=== PATIENT | female | born 2000 | race Caucasian/White ===

== ENCOUNTER 2022-01-21 09:04 | Outpatient (CLI) | payer BC, SELFPAY ==
--- OUTSIDE RECORDS SUMMARY | 2022-01-21 09:07 | XMS_ITS | Clinical Summary ---
:2000 Author Organization [facility] Address [address] [place] [address]. [place] [address] Care Team Providers Name Role Phone [facility], [facility]- Allergies Active Allergy Reactions Severity Noted Date Comments Amoxicillin GI Disturbance 08/02/2018 Medications Medication Sig Dispensed Refills Start Date End Date Status lamoTRIgine (LAMICTAL) Take 1 tablet (150 30 tablet 0 08/12/19 19 Active 150 MG mg) by mouth At tabletIndications: Bedtime Depression with anxiety sertraline (ZOLOFT) 25 Take 1 tablet (25 30 tablet 0 9 Active MG tabletIndications: mg) by mouth daily Depression with anxiety Active Problems Problem Noted Date Suicidal ideation 08/03/2018 Social History Tobacco Use Types Packs/Day Years Used Date Current Some Day Smoker Smokeless Tobacco: Never Used Alcohol Use Standard Drinks/Week Comments Yes 0 (1 standard drink = 0.6 oz pure Pt sta bernadine she drank alot on alcohol) Thursday Alcohol Habits Answer Date Recorded How often do you have a drink Not asked containing alcohol? How many drinks containing alcohol do Not asked you have on a typical day when you are drinking? How often do you have six or more Not asked drinks on one occasion? Comment: Pt states she drank alot on 08/02/2018Thursday Sex Assigned at Date Recorded Not on file Last Filed Vital Signs Vital Sign Reading Time Taken Comments Blood Pressure 134/58 08/12/2018 7:00 AM CDT Pulse 101 08/12/2018 7:00 AM CDT Temperature 37 ??C (98.6 ??F) 08/12/2018 7:00 AM CDT Respiratory Rate 16 08/09/2018 8:48 AM CDT Oxygen Saturation 94% 08/12/2018 7:00 AM CDT Inhaled Oxygen Concentration - - Weight 64.1 kg (141 lb 5 oz) 08/12/2018 7:00 AM CDT Height 167.6 cm (5' 6) 08/02/2018 3:38 PM CDT Body Mass Index 22.81 08/02/2018 3:38 PM CDT Plan of Treatment Health Maintenance Due Date Last Done Comments ANNUAL REVIEW OF HM ORDERS 1998 CHLAMYDIA SCREENING 1998 PREVENTIVE CARE VISIT 1998 COVID-19 Vaccine (#1) 1998 Pneumococcal Vaccine: Pediatrics 2004 (0 to 5 Years) and At-Risk Patients (6 to 64 Years) (1 - PCV) DTAP/TDAP/TD IMMUNIZATION (1 - 2005 Tdap) HPV IMMUNIZATION (1 - 2-dose 2009 series) HIV SCREENING 2013 HEPATITIS C SCREENING 2016 PAP 2019 PHQ-2 (once per calendar year) 2021 INFLUENZA VACCINE (#1) 2022 ADVANCE CARE PLANNING 08/05/2023 08/04/2018 HEPATITIS B IMMUNIZATION Aged Out No long er eligible based on patient's age to complete this topic IPV IMMUNIZATION Aged Out No longer eligi ble based on patient's age to complete this topic MENINGITIS IMMUNIZATION Aged Out No longe r eligible based on patient's age to complete this topic Advance Directives For more information, please contact: [phone] Latest Code Status on File Code Status Date Activated Date Inactivated Comments Full Code 08/03/2018 10:33 AM 08/12/2018 3:19 PM Code status determined by: Discussion with patient/legal dec ision maker Care Teams Fiber Analyst Relationship Specialty Start Date End Date [facility], [facility]CP - General 08/02/18 [facility] [address] [place] [address]
--- OUTSIDE RECORDS SUMMARY | 2022-01-21 09:08 | XMS_ITS | Encounter Summary ---
:2000 Author Organization [facility] Address [facility] [place] [address] Care Team Providers Name Role Phone [facility], [facility]- Reason for Visit Reason Onset Date Comments MH/CD Inpatient 08/02/2018 Encounter Details Date Type Department Care Team Description 08/02/2018 Telephone Health [facility] Generic, Behavioral MH/ CD Inpatient Behavioral Health In [facility] [address] [place] [id number] Social History Tobacco Use Types Packs/Day Years [...] Assigned at Date Recorded Not on file documented as of this encounter Miscellaneous Notes Telephone Encounter - Deborah Winters - 08/02/2018 6:34 PM CDT S: Pt is a 18 yr old fem in ED for urges to self harm and inability to contract for safety reportby Oriaan B: Pt reports he father completed suicide by gunshot in May. Pt reports increasing dep. Pt reports she cut on Thursday for the first time and liked how it made her feel. Pt reports continued urges to cut. Pt reports she is unable to contract for safety due to urges to continue cutting once she starts. Pt reports she's not eating or sleeping. Pt reports she started seeing a psychiatrist in May an appointment scheduled with a therapist but hasn't seen one yet. No reported medical concerns or cd issues. In Flight Refueling Manager reports pt is able to ambulate independently. A: vol R: 4a / Sheyla Root Accepted by Dr. Mejia documented in this encounter Plan of Treatment Not on filedocumented as of this encounter Visit Diagnoses Not on filedocumented in this encounter Care Teams Technical Fellow Relationship Specialty Start Date End Date [facility] PCP - General 08/02/18 [facility] [address] [address] documented as of this encounter
--- OUTSIDE RECORDS SUMMARY | 2022-01-21 09:08 | XMS_ITS | Encounter Summary ---
:2000 Author Organization [facility] Address [address] [place] [id number] Care Team Providers Name Role Phone [facility]- Reason for Visit Auth/Cert Specialty Diagnoses / Procedures Referred By Contact Refer red To Contact Behavioral Health Diagnoses mental health Ur Young Adult Inpt [facility] l[facility] Station [address] [place] [phone] Phone: Referral ID Status Reason Start Date Expiration Date Visits Requ ested Visits Authorized [id number] 1 1 Encounter Details Date Type Department Care Team Description 08/03/2018 - Hospital Encounter [facility] Guillermo Carrion MD [address] [place] [id number] Bipolar affective disorder, remission st atus unspecified (H) (Primary Dx); 08/12/2018 Clinic Young Adult Jose L Morse MD [address] [place] [id number] Depression with anxiety Inpatient [facility] B[facility] Station [address] [place] [phone] Social History Tobacco Use Types Packs/Day Years [...] on file documented as of this encounter Last Filed Vital Signs Vital Sign Reading Time Taken Comments Blood Pressure 134/58 08/12/2018 7:00 AM CDT Pulse 101 08/12/2018 7:00 AM CDT Temperature 37 ??C (98.6 ??F) 08/12/2018 7:00 AM CDT Respiratory Rate 16 08/09/2018 8:48 AM CDT Oxygen Saturation 94% 08/12/2018 7:00 AM CDT Inhaled Oxygen Concentration - - Weight 64.1 kg (141 lb 5 oz) 08/12/2018 7:00 AM CDT Height - - Body Mass Index 22.81 08/02/2018 3:38 PM CDT documented in this encounter Discharge Summaries Jose L Morse MD - 08/12/2018 11:40 AM CDT Psychiatric Discharge Summary Kera Figueroa Age: [age] year old Date of : 2000 Date of Admission: 08/03/2018 Date of Discharge: 08/12/2018 Admitting Physician: Jose L Morse MD Discharge Physician: Jose L Morse MD Event Leading to Hospitalization: Kera Figueroa is a 18-year-old single female presenting with increased depression, suicidal ideation and strong urges for self-injurious behavior. The patient engaged in cutting herself, her thumb and wrist. The patient states that she enjoyed seeing the blood. The patient reports multiple stressors. Her father completed suicide in 05/2018. The patient reports that her father of agunshot wound after feeling extremely guilty after a DUI. Father drove himself out into a field where her previous boyfriend (a friend of the family) of a vehicle accident. The patient reports shehas an older brother who survived a suicide attempt by gunshot to the head. The patient reports that he is our miracle child. The patient's brother attempted suicide 4 years ago. He now is able to work, walk and function pretty much as he did prior to his suicide attempt. The patient is reporting increased symptoms of depression of lying in bed a lot, fatigue, racing thoughts, not being able to sleep. The patient also feels like she is a burden to her mother. The patient feels guilty because she lashes out at her mother. The patient states she has no reason, but she feels that she is at her worstwith her mother. The patient reports that she is depressed. She has a very poor mood. She has negative thinking towards self. She is feeling worthless, not good enough. The patient states that she feels that she is a burden to her mother. She is very irritable, especially with her mother. She has very poor motivation,poor focus. She is missing school. The patient has anhedonia. She has passive suicidal thinking. Shedenies intent at this time. She denies homicidal thinking. The patient reports she is very anxious. The patient states she wakes up anxious, she is anxious all day, goes to sleep anxious. The patient reports she has an ability to sleep because of her racing thoughts. She is often overwhelmed, but reports infrequent panic attacks. The patient reports that she has been engaging in risky behavior of using her phone while she is driving, stating, I just don't care if I crash my car. The patient denieshomicidal thinking. The patient denies any symptoms of diane. She does not endorse any symptoms of psychosis, including auditory or visual hallucinations or feelings of paranoia. The patient reports that she has very vivid dreams. Her dreams are always of bad things that are going to happen. She denies any other symptoms of PTSD. The patient denies any symptoms of eating disorder or OCD. No prior inpatient hospitalizations. The patient has been treated with Lexapro 20 mg for about a year. She had a recent increase in July, approximately 2 weeks ago, to 30 mg. The patient reports sinceincreasing to 30 mg her depression has dramatically increased along with her suicidal thinking. The patient has also been treated with Lamictal 100 mg for possible bipolar disorder. The patient states that she is scheduled to go to therapy with Dominga Vaughan. She has not seen the therapist yet. Thepatient reports overwhelming urges to cut. The patient reports that she used self-injurious behaviorof cutting quite a bit in middle school, stopped in her high school years and now has relapsed. She d enies previous suicide attempts. The patient reports that she moved back home with her mother and boyfriend because of her recent father's . 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 The patient reports that she works part-time at [employer] in [place]. See Admission note by Cristela Turner APRN CNS on 08/03/2018 for additional details. Diagnoses: 1. ??Major depressive disorder, recurrent, severe without psychosis. 2. ??Bipolar disorder, highly suspected, recent episode depressed and emerging possible diane. 3. ??Suicidal ideation resolved. Labs: Recent Results (from the past 672 hour(s)) EKG 12 lead Collection Time: 08/02/18 5:19 PM Result Value Ref Range Interpretation ECG Click View Image link to view waveform and result Drug abuse screen urine Collection Time: 08/02/18 7:33 PM Result Value Ref Range Amphetamine Qual Urine Negative NEG^Negative Barbiturates Qual Urine Negative NEG^Negative Benzodiazepine Qual Urine Negative NEG^Negative Cannabinoids Qual Urine Negative NEG^Negative Cocaine Qual Urine Negative NEG^Negative Opiates Qualitative Urine Negative NEG^Negative PCP Qual Urine Negative NEG^Negative Comprehensive metabolic panel Collection Time: 08/05/18 9:02 AM Result Value Ref Range Sodium 141 133 - 144 mmol/L Potassium 4.1 3.4 - 5.3 mmol/L Chloride 107 94 - 109 mmol/L Carbon Dioxide 24 20 - 32 mmol/L Anion Gap 10 3 - 14 mmol/L Glucose 80 70 - 99 mg/dL Urea Nitrogen 11 7 - 30 mg/dL Creatinine 0.84 0.52 - 1.04 mg/dL GFR Estimate >90 >60 mL/min/[1.73_m2] GFR Estimate If Black >90 >60 mL/min/[1.73_m2] Calcium 8.7 8.5 - 10.1 mg/dL Bilirubin Total 0.2 0.2 - 1.3 mg/dL Albumin 3.3 (L) 3.4 - 5.0 g/dL Protein Total 7.0 6.8 - 8.8 g/dL Alkaline Phosphatase 82 40 - 150 U/L ALT 9 0 - 50 U/L AST 13 0 - 45 U/L CBC with platelets differential Collection Time: 08/05/18 9:02 AM Result Value Ref Range WBC 5.2 4.0 - 11.0 10e9/L RBC Count 5.09 3.8 - 5.2 10e12/L Hemoglobin 14.4 11.7 - 15.7 g/dL Hematocrit 44.1 35.0 - 47.0 % MCV 87 78 - 100 fl MCH 28.3 26.5 - 33.0 pg MCHC 32.7 31.5 - 36.5 g/dL RDW 12.3 10.0 - 15.0 % Platelet Count 276 150 - 450 10e9/L Diff Method Automated Method % Neutrophils 48.8 % % Lymphocytes 37.1 % % Monocytes 7.9 % % Eosinophils 5.6 % % Basophils 0.4 % % Immature Granulocytes 0.2 % Nucleated RBCs 0 0 /100 Absolute Neutrophil 2.5 1.6 - 8.3 10e9/L Absolute Lymphocytes 1.9 0.8 - 5.3 10e9/L Absolute Monocytes 0.4 0.0 - 1.3 10e9/L Absolute Eosinophils 0.3 0.0 - 0.7 10e9/L Absolute Basophils 0.0 0.0 - 0.2 10e9/L Abs Immature Granulocytes 0.0 0 - 0.4 10e9/L Absolute Nucleated RBC 0.0 Lipid panel reflex to direct LDL Collection Time: 08/05/18 9:02 AM Result Value Ref Range Cholesterol 164 <200 mg/dL Triglycerides 134 <150 mg/dL HDL Cholesterol 57 >49 mg/dL LDL Cholesterol Calculated 80 <100 mg/dL Non HDL Cholesterol 107 <130 mg/dL TSH with free T4 reflex Collection Time: 08/05/18 9:02 AM Result Value Ref Range TSH 3.27 0.40 - 4.00 mU/L Consults: No consultations were requested during this admission Hospital Course: Kera Figueroa was admitted to 4A Unit with TORREY Loomis who formulated the care plan. The patient was transferred to attending Jose L Morse MD prior to discharge. She was admitted as a voluntary patient. The patient was placed under status 15 (15 minute checks) to ensure patient safety. Patient did not require seclusion or administration of emergency medications to manage behavior. She was open and agreed to referral to the Day Program. The following medication changes took place: -- Lamictal titrated to 150 mg qhs. -- Lexparo discontinued. -- Zoloft started and titrated but later lowered to 25 mg daily due to reported night sweating, restlessness and emerging diane. -- The patient is hesitant but will to consider discontinued Zoloft and further increasing Lamictal in the future. The patient tolerated medications well. Reported mood symptoms gradually subsided and eventually resolved. The patient was active on the unit. The patient was social, engaged and attended groups. Mild restlessness and possible diane emerged with Zoloft but later subsided and resolved with medications a djustment. No confusion or psychosis noted. The patient maintained denial of SI, HI and ALLISON. The patient slept well. Appetite was intact. The patient was compliant with medications and care. Kera Figueroa was released to home. At the time of this encounter, Kera Figueroa was determined to not be a danger to herself or others and symptoms did not meet criteria for involuntary hospitalization. The patient denied depression, anxiety, racing thoughts and irritability. The patient denied hallucinations and paranoia. The patient was future oriented and denied SI, ALLISON and HI. The patient noted tolerating medications well. Steps taken to minimize risk include: assessing patient???s behavior and thought process daily during hospital stay, discharging patient with adequate plan for follow up for mental and physical health,and discussing safety plan of returning to the hospital or calling 911, should the patient ever has thoughts of harming self or others. Therefore, based on all available evidence including the factors cited above, the patient does not appear to be at imminent risk for self-harm, and is appropriate foroutpatient level of care. The patient agreed to continue medications and outpatient care. Discharge Medications: Current Discharge Medication List START taking these medications Details hydrOXYzine (ATARAX) 25 MG tablet Take 1-2 tablets (25-50 mg) by mouth every 4 hours as needed for anxiety Qty: 10 tablet, Refills: 0 Associated Diagnoses: Depression with anxiety sertraline (ZOLOFT) 25 MG tablet Take 1 tablet (25 mg) by mouth daily Qty: 30 tablet, Refills: 0 Associated Diagnoses: Depression with anxiety CONTINUE these medications which have CHANGED Details lamoTRIgine (LAMICTAL) 150 MG tablet Take 1 tablet (150 mg) by mouth At Bedtime Qty: 30 tablet, Refills: 0 Associated Diagnoses: Depression with anxiety STOP taking these medications escitalopram (LEXAPRO) 20 MG tablet Comments: Reason for Stopping: Psychiatric and Physical Examinations: Appearance: awake, alert, appeared as age stated and well groomed Attitude: cooperative Eye Contact: good Mood: better and good Affect: appropriate and in normal range, mood congruent, full range and reactive bright and fully engaged. Speech: clear, coherent and normal prosody Psychomotor Behavior: no evidence of tardive dyskinesia, dystonia, or tics and intact station, gait and muscle tone Thought Process: linear and goal oriented Associations: no loose associations Thought Content: no evidence of suicidal ideation or homicidal ideation and no evidence of psychoticthought Insight: fair Judgment: intact Oriented to: time, person, and place Attention Span and Concentration: intact Recent and Remote Memory: intact Language and Fund of Knowledge: appropriate Muscle Strength and Tone: normal Gait and Station: Normal Vitals: 08/10/18 1500 08/11/18 0830 08/11/18 1700 08/12/18 0700 BP: 138/76 128/66 111/58 134/58 Pulse: 96 99 101 101 Resp: Temp: 96.9 ??F (36.1 ??C) 97.6 ??F (36.4 ??C) 98.6 ??F (37 ??C) 98.6 ??F (37 ??C) TempSrc: Tympanic Tympanic Tympanic Tympanic SpO2: 94% Weight: 64.1 kg (141 lb 5 oz) Discharge Plan: Health Care Follow-up Appointments: Day Treatment Intake Appointment Date: 08/13/2018 Time: 2:30pm Please arrive 20 minutes early to complete paperwork and provide your insurance card and ID. Provider: Fartun Cazares Address: [facility], [address] [place], [place] [id number] [facility] has faxed the AVS to this provider at ?? Therapy Appointment Date: 08/16/2018 Time: 11:00am Provider: Gopal Cunningham Address: [facility], [address] [place] [address] [facility] has faxed the AVS to this provider at ?? Resources: Mental health crisis response for your county is offered 24 hours a day, 7 days a week. Atrained counselor will assess your current situation, offer support and counseling and connect you with local resources. Please call [facility] Crisis Response [phone] [place], [place], [place], [place], [place], [place], [place], [place], [place] and [facility] Crisis Response Number: [phone] ?? Crisis Intervention: 560.427.2705 or 458-047-3820 (TTY: 795.646.7896). Call anytime for help. National [place] on Mental Illness (www.mn.carroll.org): 590.248.5053 or 386-539-9631. Suicide Awareness Voices of Education (SAVE) (www.save.org): 653-697-MACU (2657) National Suicide Prevention Line (www.mentalhealthmn.org): 430-904-RAAP (5142) Mental Health Consumer/Survivor Network of [place] (www.mhcsn.net): 551.429.3015 or 149-046-4550 Mental Health Association of [place] (www.mentalhealth.org): 320.619.9152 or 605-792-4570 Self- Management and Recovery Training., SMART-- Toll free: 294.257.4617 www.Desk[employer].Halldis Text 4 [place] [address] for immediate support and crisis intervention Crisis text line: Text [place] to 888587. Free, confidential, 24/11. Attestation: The patient has been seen and evaluated by fl, Jose L Morse MD documented in this encounter Discharge Instructions Discharge KayleycarmellagracielaFitz - 08/12/2018 12:21 PM CDT Behavioral Discharge Planning and Instructions Summary: You were admitted on 08/03/[address] [place] [address] due to Suicidal Ideation. You were treatedby CHRISTY Valadez APRN and Dr. Jose L Morse and discharged on to Home Principal Diagnosis: Major depressive disorder, recurrent, severe without psychosis Health Care Follow-up Appointments: Day Treatment Intake Appointment Date: 08/13/2018 Time: 2:30pm Please arrive 20 minutes early to complete paperwork and provide your insurance card and ID. Provider: Fartun Cazares Address: [facility], [address] [place] [address], [place] [address] [facility] has faxed the AVS to this provider at Therapy Appointment Date: 08/16/2018 Time: 11:00am Provider: Gopal Cunningham Address: [facility], [address] [place] [address], [place] [address] [facility] has faxed the AVS to this provider at Attend all scheduled appointments with your outpatient providers. Call at least 24 hours in advance if you need to reschedule an appointment to ensure continued access to your outpatient providers. Major Treatments, Procedures and Findings: You were provided with: a psychiatric assessment, assessed for medical stability, medication evaluation and/or management, group therapy, art therapy, milieu management, medical interventions and skills/OT groups. Symptoms to Report: If you experience any of the following symptoms please report them right away toyour provider or to family/friends; feeling more aggressive, increased confusion, losing more sleep,mood getting worse or thoughts of suicide. Early warning signs can include: Early warning signs that could signal a potential relapse could include but not limited to the following; increased depression or anxiety sleep disturbances increased thoughts or behaviors of suicide or self-harm increased unusual thinking, such as paranoia or hearing v oices. Safety and Wellness: Take all medicines as directed. Make no changes unless your doctor suggests them. Follow treatment recommendations. Refrain from alcohol and non-prescribed drugs. If there is a concern for safety, call [phone]. Resources: Mental health crisis response for your [facility] is offered 24 hours a day, 7 days a week. Atrained counselor will assess your current situation, offer support and counseling and connect you with local resources. Please call [facility] Crisis Response [phone] [place], [place], [place], [place], [facility] Crisis Response Number: [phone] Crisis Intervention: 326.898.4008 or 702-464-6488 (TTY: 688.847.1517). Call anytime for help. National [place] on Mental Illness (www.mn.carroll.org): 429.813.4393 or 858-683-8667. Suicide Awareness Voices of Education (SAVE) (www.save.org): 446-643-IFJG (4285) National Suicide Prevention Line (www.mentalhealthmn.org): 272-200-ZBQY (0642) Mental Health Consumer/Survivor Network of [place] (www.mhcsn.net): 200.536.5889 or 297-011-2677 Mental Health Association of [place] (www.mentalhealth.org): 814.991.7273 or 343-045-1647 Self- Management and Recovery Training., SMART-- Toll free: 124.850.2104 [employer] Text 4 [place] [address] for immediate support and crisis intervention Crisis text line: Text [place] to 547617. Free, confidential, 24/11. The treatment team has appreciated the opportunity to work with you. Kera, please take care and make your recovery a daily recovery. If you have any questions or concerns our unit number is [phone]. You will be receiving a follow-up phone call within the next three days from a financial services representative from behavioral health. You have identified the best phone number to reach you as [phone] (home) documented in this encounter Medications at Time of Discharge Medication Sig Dispensed Refills Start Date End Date lamoTRIgine (LAMICTAL) Take 1 tablet (150 30 tablet 0 08/11 150 MG tabletIndications: mg) by mouth At Depression with anxiety Bedtime sertraline (ZOLOFT) 25 MG Take 1 tablet (25 30 tablet 0 03/2019 tabletIndications: mg) by mouth daily Depression with anxiety hydrOXYzine (ATARAX) 25 Take 1-2 tablets 10 tablet 0 201809/10/2018 MG tabletIndications: (25-50 mg) by mouth Depression with anxiety every 4 hours as needed for anxiety documented as of this encounter Progress Notes Clifton Santa RN - 08/12/2018 1:02 PM CDT DISCHARGE: This RN and pt have reviewed all meds and aftercare plan. All belongings returned. Pt denies SI , anxiety or depression at this time. Pt bright and smiling upon DC. Fitz Philippe - 08/12/2018 12:27 PM CDT Dicussed with patient his/her Personal Plan of Care. Reasons you are in the hospital; The patient identifies the following reasons for current hospitalization: I did and wanted to harm myself Unable to be honest with my mother about my feelings Goals for Discharge The patient identifies the following goals for discharge: New coping mechanisms Better than self harm. Be honest with people about my feelings. Abrahan Hoffman - 08/11/2018 6:37 PM CDT Patient participated in group activities. She reports that she feels happy, denies SI, SIB, hallucinations, depression, anxiety, and rates her mood at eight out of ten. Patient reported that she feels excited about her possible discharge on Thursday. Hence, she will like to have a meeting with her Clinical Pantograph Transferrer tomorrow to making sure her Day Program, and Aggrieved Counselor program will be ready prior to the day she will be discharged. Patient appears calm, pleasant, relates well with other patients, displays bright affect, and follows directions. 08/11/18 587 Behavioral Health Hallucinations denies / not responding to hallucinations Thinking other (see comment) (Good) Orientation person: oriented;place: oriented Memory baseline memory Insight insight appropriate to events Judgement intact Eye Contact at examiner Affect full range affect Mood mood is calm Physical Appearance/Attire appears stated age;attire appropriate to age and situation Hygiene well groomed Suicidality other (see comments) (denies) 1. Wish to be No 2. Non-Specific Active Suicidal Thoughts No Self Injury other (see comment) (Pt denies) Elopement (No concern) Activity other (see comment) (Particiaptes) Speech clear;coherent Medication Sensitivity no stated side effects;no observed side effects Psychomotor / Gait balanced;steady Overt Aggression Scale Verbal Aggression 0 Aggression against Property 0 Auto-Aggression 0 Physical Aggression 0 Overt Aggression Total Score 0 Coping/Psychosocial Verbalized Emotional State acceptance;happiness Safety Assault status 15 Activities of Daily Living Hygiene/Grooming independent Oral Hygiene independent Dress independent Room Organization independent Activity Activity Assistance Provided independent Jose L Morse MD - 08/11/2018 11:24 AM CDT [facility] Progress Note Interim History: The patient's care was discussed with the treatment team during the daily team meeting and/or staff's chart notes were reviewed. Staff report patient rated dep and anx low. Social, bright, fully engaged and cooperative. Attending groups. Denied SI and ALLISON. Residual diane resolved. Slept well. More on task and improved boundaries. No overt psychosis, or confusion. Compliant with medications and care. The patient was pleasant and fully engaged. Denied dep and racing thoughts. Anxiety improving. No SIor ALLISON. Night sweating persist but otherwise tolerating medications well. No hallucinations or paranoia. Hesitant but will to consider discontinued Zoloft and further increasing Lamictal in the future.Agreed to discharge tomorrow. Discussed medications and care plan. Medications: ??? lamoTRIgine 150 mg Oral At Bedtime ??? sertraline 25 mg Oral Daily Allergies: Allergies Allergen Reactions ??? Amoxicillin GI Disturbance Labs: No results found for this or any previous visit (from the past 24 hour(s)). Psychiatric Examination: Vitals: 08/09/18 1700 08/10/18 0700 08/10/18 1500 08/11/18 0830 BP: 135/72 135/61 138/76 128/66 Pulse: 76 114 96 99 Resp: Temp: 98.4 ??F (36.9 ??C) 97.9 ??F (36.6 ??C) 96.9 ??F (36.1 ??C) 97.6 ??F (36.4 ??C) TempSrc: Tympanic Tympanic Tympanic Tympanic SpO2: 95% Weight: 64.4 kg (141 lb 15.6 oz) Sitting Orthostatic BP: 135/61 Sitting Orthostatic Pulse: 114 bpm Standing Orthostatic BP: 120/67 Standing Orthostatic Pulse: 119 bpm Weight is 141 lbs 15.62 oz Body mass index is 22.92 kg/m??. Appearance: awake, alert, adequately groomed, appeared as age stated and no apparent distress Attitude: cooperative Eye Contact: good Mood: better Affect: intensity is exaggerated, full range, bright and reactive Speech: clear, coherent and normal prosody Psychomotor Behavior: no evidence of tardive dyskinesia, dystonia, or tics and intact station, gait and muscle tone Throught Process: linear and goal oriented Associations: no loose associations Thought Content: no evidence of suicidal ideation or homicidal ideation and no evidence of psychoticthought Insight: fair Judgement: intact Oriented to: time, person, and place Attention Span and Concentration: intact Recent and Remote Memory: intact Precautions: Behavioral Orders Procedures ??? Code 1 - Restrict to Unit ??? Routine Programming As clinically indicated ??? Self Injury Precaution Hx of cutting ??? Status 15 Every 15 minutes. ??? Suicide precautions Patients on Suicide Precautions should have a Combination Diet ordered that includes a Diet selection(s) AND a Behavioral Tray selection for Safe Tray - with utensils Diagnoses: 1. ??Major depressive disorder, recurrent, severe without psychosis. 2. ??Rule out bipolar disorder, recent episode depressed. 3. ??Suicidal ideation Plan: Medications: -- Lamictal start and titrated to 150 mg qhs. -- Lexparo discontinued. -- Zoloft started and titrated but later lowered to 25 mg daily due to restlessness and emerging diane. -- the patient is hesitant but will to consider discontinued Zoloft and further increasing Lamictal in the future. Agreed to discharge tomorrow. Legal Status and Disposition: -- volunt. -- discharge will be granted once established mood stabilization, remission of SI and safety in the community. -- refer to day program, individual therapy and Grief groups. -- anticipated discharge tomorrow. Discharge medications issued. Stephen Smith - 08/10/2018 10:22 PM CDT 08/10/18 2200 Therapeutic Recreation Type of Intervention structured groups Activity game Response Participates, initiates socially appropriate Hours 1 Pt participated in Therapeutic Recreation group with focus on leisure participation,stress reduction, and socialization. Pt engaged and cooperative in a group therapeutic recreational game. Pt participated throughout entire duration of the group. Pt was often laughing out loud appropriately with peers throughout the game. Pt stayed behind to help put away the game in an organized fashion. Showed progress in session goals. Pt mood was calm. Mellisa Ventura - 08/10/2018 8:37 PM CDT 08/10/18 1600 Behavioral Health Hallucinations denies / not responding to hallucinations Thinking distractable Orientation person: oriented;place: oriented;date: oriented;time: oriented Memory baseline memory Insight poor Judgement impaired Eye Contact at examiner Affect full range affect Mood labile Physical Appearance/Attire attire appropriate to age and situation Hygiene well groomed Suicidality other (see comments) (denied SI) 1. Wish to be No 2. Non-Specific Active Suicidal Thoughts No Self Injury other (see comment) (pt denied SIB) Elopement (no concerns) Activity other (see comment) (pt is social in the milieu) Speech clear;coherent Medication Sensitivity no observed side effects;no stated side effects Psychomotor / Gait steady;balanced Activities of Daily Living Hygiene/Grooming independent Oral Hygiene independent Dress independent Room Organization independent Pt reported feeling good and excited for discharge. Pt had a visit with her family this evening. Pt shows full range of affect and was social with peers and staff. Pt is cooperative with staff. Yen Zepeda - 08/10/2018 12:33 PM CDT Behavioral Health [facility] Note Behavioral Health [facility] Spirituality Group Note UNIT [address] [place] Name: Kera Figueroa Date of : 2000 Age: [age] year old Patient attended [facility]-led group, which included discussion of spirituality, coping with illness and building resilience. Patient attended group for 1.0 hrs. The patient actively participated in group discussion and patient demonstrated an appreciation of topic's application for their personal circumstances. [facility] Orderly Pager [phone] Jose L Morse MD - 08/10/2018 10:44 AM CDT [facility] [place] [facility] Progress Note Interim History: The patient's care was discussed with the treatment team during the daily team meeting and/or staff's chart notes were reviewed. Staff report patient rated dep and anx low. Denied SI and ALLISON. More engaged and social with peers. Attending groups. More on task and improved boundaries. No overt psychosis, or confusion. Compliant with medications and care. The patient was bright and fully engaged. Noted that dep and anx improved. Sleep improved but night sweating persist. Restless improved with lowering Zoloft dose but not fully open to further tapering.No hallucinations or racing thoughts reported. Future oriented and denied SI and ALLISON. Concerned about discharge. Open and receptive to recommended post discharge referrals. Discussed medications and care plan. Medications: ??? lamoTRIgine 150 mg Oral At Bedtime ??? sertraline 25 mg Oral Daily Allergies: Allergies Allergen Reactions ??? Amoxicillin GI Disturbance Labs: No results found for this or any previous visit (from the past 24 hour(s)). Psychiatric Examination: Vitals: 08/08/18 1700 08/09/18 0848 08/09/18 1700 08/10/18 0700 BP: 129/55 141/68 135/72 135/61 Pulse: 93 96 76 114 Resp: 16 Temp: 98.7 ??F (37.1 ??C) 97.9 ??F (36.6 ??C) 98.4 ??F (36.9 ??C) 97.9 ??F (36.6 ??C) TempSrc: Tympanic Tympanic Tympanic Tympanic SpO2: 96% 95% Weight: 64.4 kg (141 lb 15.6 oz) Sitting Orthostatic BP: 135/61 Sitting Orthostatic Pulse: 114 bpm Standing Orthostatic BP: 120/67 Standing Orthostatic Pulse: 119 bpm Weight is 141 lbs 15.62 oz Body mass index is 22.92 kg/m??. Appearance: awake, alert, adequately groomed, appeared as age stated and no apparent distress Attitude: cooperative Eye Contact: good Mood: better Affect: intensity is exaggerated, full range, bright and reactive Speech: clear, coherent and normal prosody Psychomotor Behavior: no evidence of tardive dyskinesia, dystonia, or tics and intact station, gait and muscle tone Throught Process: linear and goal oriented Associations: no loose associations Thought Content: no evidence of suicidal ideation or homicidal ideation and no evidence of psychoticthought Insight: fair Judgement: intact Oriented to: time, person, and place Attention Span and Concentration: intact Recent and Remote Memory: intact Precautions: Behavioral Orders Procedures ??? Code 1 - Restrict to Unit ??? Routine Programming As clinically indicated ??? Self Injury Precaution Hx of cutting ??? Status 15 Every 15 minutes. ??? Suicide precautions Patients on Suicide Precautions should have a Combination Diet ordered that includes a Diet selection(s) AND a Behavioral Tray selection for Safe Tray - with utensils Diagnoses: 1. ??Major depressive disorder, recurrent, severe without psychosis. 2. ??Rule out bipolar disorder, recent episode depressed. 3. ??Suicidal ideation Plan: Medications: -- Lamictal start and titrated to 150 mg qhs. -- Lexparo discontinued. -- Zoloft started and titrated but later lowered to 25 mg daily due to restlessness. Legal Status and Disposition: -- volunt. -- discharge will be granted once established mood stabilization, remission of SI and safety in the community. -- refer to day program, individual therapy and Grief groups. -- anticipated discharge in 1-2 days. Fitz Vargas - 08/10/2018 9:25 AM CDT INITIAL PSYCHOSOCIAL ASSESSMENT I have reviewed the chart and interviewed the patient. Presenting Problem Per ED provider note, Kera Figueroa is a 18 year old female with a history of depression and bipolar disorder who presents with depression. The patient reports that she has struggled with depression for her entire life and was additionally diagnosed with bipolar disorder 3 years ago for which she has been taking citalopram and lamotrigine. Three months ago the patient states her father committed suicide and her depression has been increasing in severity since then. Additionally 2 weeks ago thepatient states that her citalopram dosage was increased by 10 mg by her psychiatrist and doesn't know if this may be affecting her mood as well. A couple days ago the patient states she cut her left thumb and became scared when she felt better after cutting herself. She notes that she used to cut herself with a pocket knife when she was in middle school because it made her feel better and currently presents to the ED due to fear that she will start cutting herself again. The patient notes that although she struggles with thoughts of cutting herself, she does not want to . She notes that she is currently attending school, but not engaging in it and has been having some difficulty sleeping at night. 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 She otherwise denies any fevers, sore throat, cough, urinary symptoms or changes in bowel movements. The patient states that she does drink socially with her last having had 5-6 drinks a few days ago. She denies any drug use. The patient lives with her mom and boyfriend, however she notes that her mom is currently out of town. Nicky Cali MD 08/02/2018 Orders Placed This Encounter Voluntary Is patient under a civil commitment/legal guardian? No History of Mental Illness and Chemical Health History Pt has a hx of PTSD and depression. Pt is currently hospitalized due to suicidal ideation. Pt has a hx of SIB via cutting. Pt's current medications are Lamotrigine, Escitalopram and Lexapro. Family Description(Constellation, family psychiatric hx) Pt was born and raised in [place]. Pt's parent's were . Pt's mother is now a . Pt has 1 olderbrother. Pt is currently in a relationship. Pt's father had a hx of depression and successfully completed suicide. Pt's brother attempted suicide and has a hx of depression. Pt's grandfather has a hx of depression. Significant Life Events (Trauma/Ilness/) Pt's father completed suicide in May. Pt's ex-boyfriend in a car accident and pt's brother attempted suicide. 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 Social functioning (organization, interests) Nothing at this time Current Health Care Providers Medication Management: Dominga Wttcoff [phone] fax [phone] Therapist: Primary Care: Teacher'S Aide: [facility]/Home Health nurse: Home Health Nurse: Social Service Assessment/Plan Patient would benefit from grief counseling or day treatment. CTC will consult with treatment team for additional treatment recommendations. CTC will schedule appointments with outpatient providers for follow-up post discharge. Patient will continue to receive therapeutic support while hospitalized and is encouraged to attend therapies on the unit Mellisa Ventura - 08/09/2018 10:48 PM CDT 08/09/18 1900 Behavioral Health Hallucinations denies / not responding to hallucinations Thinking poor concentration Orientation person: oriented;date: oriented;place: oriented;time: oriented Memory baseline memory Insight poor Judgement impaired Eye Contact at examiner Affect full range affect Mood labile Physical Appearance/Attire attire appropriate to age and situation Hygiene neglected grooming - unclean body, hair, teeth Suicidality other (see comments) (pt denied SI) 1. Wish to be No 2. Non-Specific Active Suicidal Thoughts No Self Injury other (see comment) (pt denied SIB) Elopement (no concerns) Activity withdrawn Speech coherent;clear Medication Sensitivity no stated side effects;no observed side effects Psychomotor / Gait steady;balanced Activities of Daily Living Hygiene/Grooming independent Oral Hygiene independent Dress independent Room Organization independent Pt was social in the milieu. Pt was cooperative with staff. Pt had a check-in earlier in the shift and reported feeling overwhelmed and upset due to another pt. Kera reported that she is here to work on herself and this was a hard day due to it being the anniversary of her boyfriend's . Pt wasable to articulate her needs. Pt later reported feeling better. Stephen Smith - 08/09/2018 10:30 PM CDT 08/09/18 2200 Therapeutic Recreation Type of Intervention structured groups Activity game Response Participates, initiates socially appropriate Hours 1 Pt participated in Therapeutic Recreation group with focus on leisure participation and socialization. Engaged and cooperative in a group recreational intervention game. Pt participated throughout entire duration of the group. Pt shared with group [employer] summer interests. Showed progress in session goals. Pt mood was calm. Aisha Marie - 08/09/2018 3:46 PM CDT Participated in Music Therapy group with focus on mood elevation, validation and decreasing anxiety and improved group cohesiveness. Engaged and cooperative in music listening interventions. Showed progress in session goals. Responded well to challenging peer, not directly interacting but reporting tostaff. Cristela Turner APRN CNS - 08/09/2018 1:09 PM CDT [facility] [place] [facility] Progress Note Interim History: The patient's care was discussed with the treatment team during the daily team meeting and/or staff's chart notes were reviewed. Staff report patient is in milieu. Psychiatric symptoms and interventions: Increased Lamictal to 150 mg to address mood instability Sertraline 25 mg to address mood. Decreased dose from 50 mg due to night sweats and hand tremors. Will continue ot monitor. Patient has been tearful in the context of multiple losses in her life including father, past boyfriend and her 5 year old cousin . Patient reports feeling very sad but feel in control in that she doesnot have urges for self injurious behavior. ? Medical: no acute issues, admission labs unremarkable ?? Behavioral/psychology/social: Encouraged patient to attend therapeutic hospital programming. Patient has not required restraint or seclusion within the last 24 hours. ?? Medications: ??? lamoTRIgine 150 mg Oral At Bedtime ??? [START ON 08/10/2018] sertraline 25 mg Oral Daily Allergies: Allergies Allergen Reactions ??? Amoxicillin GI Disturbance Labs: No results found for this or any previous visit (from the past 24 hour(s)). Psychiatric Examination: BP 141/68 Pulse 96 Temp 97.9 ??F (36.6 ??C) (Tympanic) Resp 16 Wt 64.6 kg (142 lb 8 oz) LMP 08/01/2018 SpO2 96% BMI 23.00 kg/m?? Weight is 142 lbs 8 oz Body mass index is 23 kg/m??. Orthostatic Vitals Most Recent Sitting Orthostatic BP 141/68 04/08 0848 Sitting Orthostatic Pulse (bpm) 96 04/08 0848 Standing Orthostatic BP 111/57 04/08 0848 Standing Orthostatic Pulse (bpm) 116 04/08 0848 Appearance: awake, alert and adequately groomed Attitude: cooperative Eye Contact: good Mood: sad Affect: appropriate and in normal range Speech: clear, coherent Psychomotor Behavior: no evidence of tardive dyskinesia, dystonia, or tics Throught Process: logical, linear and goal oriented Associations: no loose associations Thought Content: passive suicidal ideation present Insight: fair Judgement: fair Oriented to: time, person, and place Attention Span and Concentration: intact Recent and Remote Memory: intact Clinical Global Impressions First: Considering your total clinical experience with this particular patient population, how severe are the patient's symptoms at this time?: 6 (08/03/181330) Compared to the patient's condition at the START of treatment, this patient's condition is:: 6 (08/03/181330) Most recent: Considering your total clinical experience with this particular patient population, how severe are the patient's symptoms at this time?: 6 (08/03/181330) Compared to the patient's condition at the START of treatment, this patient's condition is:: 6 (08/03/181330) Precautions: Behavioral Orders Procedures ??? Code 1 - Restrict to Unit ??? Routine Programming As clinically indicated ??? Self Injury Precaution Hx of cutting ??? Status 15 Every 15 minutes. ??? Suicide precautions Patients on Suicide Precautions should have a Combination Diet ordered that includes a Diet selection(s) AND a Behavioral Tray selection for Safe Tray - with utensils DIagnoses: 1. ??Major depressive disorder, recurrent, severe without psychosis. 2. ??Rule out bipolar disorder, recent episode depressed. 3. ??Suicidal ideation Plan: ?? Legal status: Voluntary ?? Medication management: sertraline 25 mg, Lamictal 100 mg ?? Disposition status: Stabilize with medications, day treatment, return to home.? DAT Erika Mccarty - 08/09/2018 12:08 PM CDT Pt has been present in the milieu and has participated in groups this shift. Pt presents with a fullrange affect and labile mood. Pt states she feels low today due to receiving bad news last eveningregarding the of a family member. Pt claims she was up most of the night crying and only sleptfor a few hours. Pt denies experiencing severe anxiety at this time, however she does endorse some somatic symptoms (chest tightness). Pt also claims she is experiencing night sweats and wants this to be under control before discharge. Pt denies experiencing any hallucinations or delusions at this time. Pt endorses passive thoughts of SIB. Pt denies experiencing any SI. Pt mentioned to this contract technical writer that she is having poor experiences with her roommate and claims there is drama between the two girls. Pt requested a room change due to these ongoing issues with her roommate. This contract technical writer also thought it would be pertinent to mention that today is supposedly the anniversary of this pt's boyfriend's , however when this contract technical writer checked in with this pt on August 05, pt stated that the anniversary of her boyfriend's was on that date. 08/09/18 1205 Behavioral Health Hallucinations denies / not responding to hallucinations Thinking poor concentration Orientation person: oriented;place: oriented;date: oriented;time: oriented Memory baseline memory Insight poor Judgement impaired Eye Contact at examiner Affect full range affect Mood labile Physical Appearance/Attire attire appropriate to age and situation Hygiene neglected grooming - unclean body, hair, teeth Suicidality other (see comments) (thoughts only last evening; none today) 1. Wish to be No 2. Non-Specific Active Suicidal Thoughts No Self Injury thoughts only;other (see comment) (thoghts worsen when in room) Activity withdrawn;other (see comment) (Pt present in milieu; participates in groups) Speech clear;coherent Medication Sensitivity no stated side effects;no observed side effects Psychomotor / Gait balanced;steady Activities of Daily Living Hygiene/Grooming independent Oral Hygiene independent Dress independent Laundry unable to complete Room Organization independent Thang Devi - 08/08/2018 11:15 PM CDT Pt was active and social in milieu the entire shift. Pt appeared to enjoy her evening, socializing, and watching movies with peers. Pt had many visitors this evening, which she stated was positive. Pt attempted to go to sleep, but came out crying stating that she cant be in her room alone with her thoughts. Fire Extinguisher Installer suggested that she hang out in the milieu for a while and trying to calm herself. Pt began to work on a puzzle, which seems to help. Pt stated that her cousin this morning, which has really effected her. Pt stated her day was crappy. 08/08/18 2300 Behavioral Health Hallucinations denies / not responding to hallucinations Thinking distractable Orientation person: oriented;place: oriented;date: oriented;time: oriented Memory baseline memory Insight poor Judgement intact Eye Contact at examiner Affect full range affect Mood labile Physical Appearance/Attire attire appropriate to age and situation Hygiene well groomed 1. Wish to be No 2. Non-Specific Active Suicidal Thoughts No Activity (WDL) WDL Speech (WDL) WDL Psychomotor Gait (WDL) WDL Activities of Daily Living Hygiene/Grooming independent Oral Hygiene independent Dress independent Room Organization independent Den Landry - 08/07/2018 9:30 PM CDT Alize' mood was labile this evening. She alternated between periods of elation and short, seemingly spontaneous episodes of crying. Distraction is her primary coping skill. She attended and participatedin groups. She was polite and conversational upon approach. Patient was hyper-verbal at times, but seems to enjoy being positive and supportive with peers. Alize is upset that she does not receive utensils on her dinner tray and does not feel the restriction is necessary. Appetite: Good Pain: N/A Sleep: Fair SEs: N/A 08/07/18 2100 Behavioral Health Hallucinations denies / not responding to hallucinations Thinking poor concentration Orientation person: oriented;place: oriented;date: oriented Memory baseline memory Insight other (see comment) (limited) Judgement impaired Eye Contact at examiner Affect full range affect Mood labile Physical Appearance/Attire attire appropriate to age and situation Hygiene well groomed Suicidality other (see comments) (denies) 1. Wish to be No 2. Non-Specific Active Suicidal Thoughts No Enviromental Risk Factors None Self Injury thoughts only Elopement (no concerns) Activity other (see comment) (visible, participating) Speech coherent;clear Medication Sensitivity no stated side effects;no observed side effects Psychomotor / Gait balanced;steady Activities of Daily Living Hygiene/Grooming independent Oral Hygiene independent Dress street clothes Laundry with supervision Room Organization independent Stacey Kaur - 08/07/2018 8:30 PM CDT 08/07/182029 Psycho Education Type of Intervention structured groups Response participates, initiates socially appropriate Hours 1 Treatment Detail psychotherapy group Kera actively participated in psychotherapy group. Goal of the group was feelings identification and social cohesion. Kera openly, tearfully shared her feelings of possibly having to confront losing some people in her life, and she reported feeling a disconnect with her parents visit They talked about everyone else in the family, not me. Den Landry - 08/06/2018 9:47 PM CDT Kera had a positive evening. She was visible in the milieu, participated in groups, was social, and appropriate with others. Presents some symptoms of hypomania. Hyperverbal, tense affect. Denies SI/SIB. Appetite: Good Pain: N/A SEs: N/A Sleep: Improved 08/06/18 2100 Behavioral Health Hallucinations denies / not responding to hallucinations Thinking poor concentration Orientation person: oriented;place: oriented;date: oriented Memory baseline memory Insight admits / accepts Judgement (fair) Eye Contact at examiner Affect full range affect Mood anxious Physical Appearance/Attire attire appropriate to age and situation Hygiene well groomed Suicidality other (see comments) (denies) 1. Wish to be No 2. Non-Specific Active Suicidal Thoughts No Self Injury thoughts only Elopement (no current concerns) Activity other (see comment) (visible) Speech clear;coherent Medication Sensitivity no stated side effects;no observed side effects Psychomotor / Gait balanced;steady Safety Suicidality Status 15 Activities of Daily Living Hygiene/Grooming independent Oral Hygiene independent Dress independent Laundry with supervision Room Organization independent Cristela Turner APRN SURGICAL ASSISTANT - 08/06/2018 2:17 PM CDT [facility] [place] [facility] Progress Note Interim History: The patient's care was discussed with the treatment team during the daily team meeting and/or staff's chart notes were reviewed. Staff report patient has been visible in the milieu. Psychiatric symptoms and interventions: Increased Lamictal to 150 mg to address mood instability Sertraline 50 mg to address mood. Patient was dysregulated yesterday and engaged in SIB. She scratched her left forearm. Patient continues to struggle with anxiety and depression. She is complaining of night sweats. Discontinued trazodone. She will use hydroxyzine for sleep PRN. Medical: no acute issues, admission labs unremarkable ?? Behavioral/psychology/social: Encouraged patient to attend therapeutic hospital programming. Patient has not required restraint or seclusion within the last 24 hours. Medications: ??? lamoTRIgine 150 mg Oral At Bedtime ??? sertraline 50 mg Oral Daily Allergies: Allergies Allergen Reactions ??? Amoxicillin GI Disturbance Labs: No results found for this or any previous visit (from the past 24 hour(s)). Psychiatric Examination: BP 127/54 Pulse 107 Temp 98 ??F (36.7 ??C) (Tympanic) Resp 16 Wt 64.6 kg (142 lb 6.7 oz) LMP 08/01/2018 SpO2 95% BMI 22.99 kg/m?? Weight is 142 lbs 6.67 oz Body mass index is 22.99 kg/m??. Orthostatic Vitals Most Recent Sitting Orthostatic BP 127/54 08/06 918 Sitting Orthostatic Pulse (bpm) 107 08/06 0819 Standing Orthostatic BP 98/47 08/06 918 Standing Orthostatic Pulse (bpm) 120 08/06 0919 Appearance: awake, alert and adequately groomed Attitude: cooperative Eye Contact: good Mood: anxious and depressed Affect: intensity is blunted Speech: normal prosody Psychomotor Behavior: no evidence of tardive dyskinesia, dystonia, or tics Throught Process: logical, linear and goal oriented Associations: no loose associations Thought Content: passive suicidal ideation present, patient engaged in SIB on 08/05. Insight: fair Judgement: fair Oriented to: time, person, and place Attention Span and Concentration: fair Recent and Remote Memory: intact Clinical Global Impressions First: Considering your total clinical experience with this particular patient population, how severe are the patient's symptoms at this time?: 6 (08/03/181330) Compared to the patient's condition at the START of treatment, this patient's condition is:: 6 (08/03/181330) Most recent: Considering your total clinical experience with this particular patient population, how severe are the patient's symptoms at this time?: 6 (08/03/181330) Compared to the patient's condition at the START of treatment, this patient's condition is:: 6 (08/03/181330) Precautions: Behavioral Orders Procedures ??? Code 1 - Restrict to Unit ??? Routine Programming As clinically indicated ??? Self Injury Precaution Hx of cutting ??? Status 15 Every 15 minutes. ??? Suicide precautions Patients on Suicide Precautions should have a Combination Diet ordered that includes a Diet selection(s) AND a Behavioral Tray selection for Safe Tray - with utensils, or Safe Tray - NO utensils Suicidal ideation prior to admission. DIagnoses: 1. ??Major depressive disorder, recurrent, severe without psychosis. 2. ??Rule out bipolar disorder, recent episode depressed. 3. ??Suicidal ideation. Plan: Legal status: Voluntary ?? Medication management: sertraline 50 mg, Lamictal 100 mg ?? Disposition status: Stabilize with medications, day treatment, return to home. ?? Erika Mccarty M - 08/06/2018 11:40 AM CDT Pt has been present in the milieu and has participated well in groups this shift. Pt presents with afull range affect and anxious mood, and pt has also been observed to have high energy this shift. Ptendorses heightened anxiety due to life stressors outside of the hospital and pt mentioned that the events that have transpired on the unit regarding a past pt have continued to cause her some level ofanxiety. Since this pt has been removed from the unit, pt states that her anxiety has lessened a bit. Pt rates her depression at a 3/10 (10=most severe). Pt denies experiencing any hallucinations or delusions at this time. Pt admitted that she scratched her left forearm with her comb and the top of a soda bottle last evening (superficial scratches were observed), however pt denies acting on any thoughts of SIB today. Pt endorses chronic thoughts of SIB. Pt contracted for safety on the unit. Pt denies experiencing any SI at this time. Pt states she is experiencing vivid dreams and attributes them tothe medication Zoloft. Pt also claims that she is experiencing night sweats and chills when sleeping. Pt claims that her appetite is normal. Pt denies any physical pain at this time. 08/06/18 1138 Behavioral Health Hallucinations denies / not responding to hallucinations Thinking poor concentration Orientation person: oriented;place: oriented;date: oriented;time: oriented Memory baseline memory Insight admits / accepts Judgement intact Eye Contact at examiner Affect full range affect Mood anxious Physical Appearance/Attire attire appropriate to age and situation Hygiene well groomed Suicidality other (see comments) (Pt denies SI) 1. Wish to be No 2. Non-Specific Active Suicidal Thoughts No Self Injury thoughts only Activity other (see comment) (Pt present in milieu; participates in groups) Speech clear;coherent Medication Sensitivity no stated side effects;no observed side effects Psychomotor / Gait balanced;steady Activities of Daily Living Hygiene/Grooming independent Oral Hygiene independent Dress street clothes;independent Laundry unable to complete Room Organization independent Den Landry - 08/05/2018 10:37 PM CDT Alize said she felt less manic today. Patient presents as hypomanic. Her affect was full-range. Mood was elated. Speech was rambling and tangential. Denies SI. Reports SIB urges. Working on coping skills, including distraction, walking, and art. She was visible in the milieu and social with others. Appetite: Good Pain: N/A SEs: N/A Sleep: Poor 08/05/182199 Behavioral Health Hallucinations denies / not responding to hallucinations Thinking intact Orientation date: oriented;place: oriented;person: oriented Memory baseline memory Insight poor Judgement impaired Eye Contact at examiner Affect tense Mood elated Physical Appearance/Attire attire appropriate to age and situation Hygiene well groomed Suicidality other (see comments) (denies) 1. Wish to be No 2. Non-Specific Active Suicidal Thoughts No Elopement (no concerns) Activity hyperactive (agitated, impulsive) Speech clear;coherent Medication Sensitivity no stated side effects;no observed side effects Psychomotor / Gait hyperactive Activities of Daily Living Hygiene/Grooming independent Oral Hygiene independent Dress independent Room Organization independent Cristela Turner APRN SURGICAL ASSISTANT - 08/05/2018 4:07 PM CDT [facility], [place] Psychiatric Progress Note Interim History: The patient's care was discussed with the treatment team during the daily team meeting and/or staff's chart notes were reviewed. Staff report patient is visible in the milieu. Psychiatric symptoms and interventions: Started sertraline 50 mg to address mood and anxiety. Increased Lamictal 150 mg to address mood instability due to increased energy yesterday after starting sertraline. 08/05 Patient was tearful after another patient was verbally aggressive towards her. patient was able to calm herself in her room. Patient continues to struggle with her grief , depression and anxiety. ?? Medical: no acute issues ?? Behavioral/psychology/social: Encouraged patient to attend therapeutic hospital programming. Patient has not required restraint or seclusion within the last 24 hours. Medications: ??? lamoTRIgine 150 mg Oral At Bedtime ??? sertraline 50 mg Oral Daily Allergies: Allergies Allergen Reactions ??? Amoxicillin GI Disturbance Labs: Recent Results (from the past 24 hour(s)) Comprehensive metabolic panel Collection Time: 08/05/18 9:02 AM Result Value Ref Range Sodium 141 133 - 144 mmol/L Potassium 4.1 3.4 - 5.3 mmol/L Chloride 107 94 - 109 mmol/L Carbon Dioxide 24 20 - 32 mmol/L Anion Gap 10 3 - 14 mmol/L Glucose 80 70 - 99 mg/dL Urea Nitrogen 11 7 - 30 mg/dL Creatinine 0.84 0.52 - 1.04 mg/dL GFR Estimate >90 >60 mL/min/[1.73_m2] GFR Estimate If Black >90 >60 mL/min/[1.73_m2] Calcium 8.7 8.5 - 10.1 mg/dL Bilirubin Total 0.2 0.2 - 1.3 mg/dL Albumin 3.3 (L) 3.4 - 5.0 g/dL Protein Total 7.0 6.8 - 8.8 g/dL Alkaline Phosphatase 82 40 - 150 U/L ALT 9 0 - 50 U/L AST 13 0 - 45 U/L CBC with platelets differential Collection Time: 08/05/18 9:02 AM Result Value Ref Range WBC 5.2 4.0 - 11.0 10e9/L RBC Count 5.09 3.8 - 5.2 10e12/L Hemoglobin 14.4 11.7 - 15.7 g/dL Hematocrit 44.1 35.0 - 47.0 % MCV 87 78 - 100 fl MCH 28.3 26.5 - 33.0 pg MCHC 32.7 31.5 - 36.5 g/dL RDW 12.3 10.0 - 15.0 % Platelet Count 276 150 - 450 10e9/L Diff Method Automated Method % Neutrophils 48.8 % % Lymphocytes 37.1 % % Monocytes 7.9 % % Eosinophils 5.6 % % Basophils 0.4 % % Immature Granulocytes 0.2 % Nucleated RBCs 0 0 /100 Absolute Neutrophil 2.5 1.6 - 8.3 10e9/L Absolute Lymphocytes 1.9 0.8 - 5.3 10e9/L Absolute Monocytes 0.4 0.0 - 1.3 10e9/L Absolute Eosinophils 0.3 0.0 - 0.7 10e9/L Absolute Basophils 0.0 0.0 - 0.2 10e9/L Abs Immature Granulocytes 0.0 0 - 0.4 10e9/L Absolute Nucleated RBC 0.0 Lipid panel reflex to direct LDL Collection Time: 08/05/18 9:02 AM Result Value Ref Range Cholesterol 164 <200 mg/dL Triglycerides 134 <150 mg/dL HDL Cholesterol 57 >49 mg/dL LDL Cholesterol Calculated 80 <100 mg/dL Non HDL Cholesterol 107 <130 mg/dL TSH with free T4 reflex Collection Time: 08/05/18 9:02 AM Result Value Ref Range TSH 3.27 0.40 - 4.00 mU/L Psychiatric Examination: BP 131/58 Pulse 86 Temp 98 ??F (36.7 ??C) (Tympanic) Resp 16 Wt 64.6 kg (142 lb 6.7 oz) LMP 08/01/2018 SpO2 96% BMI 22.99 kg/m?? Weight is 142 lbs 6.67 oz Body mass index is 22.99 kg/m??. Orthostatic Vitals Most Recent Sitting Orthostatic BP 110/57 04/04 0900 Sitting Orthostatic Pulse (bpm) 94 04/04 0900 Standing Orthostatic BP 109/54 04/04 0900 Standing Orthostatic Pulse (bpm) 103 04/04 0900 Appearance: awake, alert and adequately groomed Attitude: cooperative Eye Contact: good Mood: anxious and depressed Affect: intensity is blunted Speech: normal prosody Psychomotor Behavior: no evidence of tardive dyskinesia, dystonia, or tics Throught Process: logical, linear and goal oriented Associations: no loose associations Thought Content: passive suicidal ideation present Insight: fair Judgement: fair Oriented to: time, person, and place Attention Span and Concentration: fair Recent and Remote Memory: intact Clinical Global Impressions First: Considering your total clinical experience with this particular patient population, how severe are the patient's symptoms at this time?: 6 (08/03/181330) Compared to the patient's condition at the START of treatment, this patient's condition is:: 6 (08/03/181330) Most recent: Considering your total clinical experience with this particular patient population, how severe are the patient's symptoms at this time?: 6 (08/03/18 1331) Compared to the patient's condition at the START of treatment, this patient's condition is:: 6 (08/03/18 1331) Precautions: Behavioral Orders Procedures ??? Code 1 - Restrict to Unit ??? Routine Programming As clinically indicated ??? Self Injury Precaution Hx of cutting ??? Status 15 Every 15 minutes. ??? Suicide precautions Patients on Suicide Precautions should have a Combination Diet ordered that includes a Diet selection(s) AND a Behavioral Tray selection for Safe Tray - with utensils, or Safe Tray - NO utensils Suicidal ideation prior to admission. DIagnoses: 1. ??Major depressive disorder, recurrent, severe without psychosis. 2. ??Rule out bipolar disorder, recent episode depressed. 3. ??Suicidal ideation. Plan: Legal status: Voluntary ?? Medication management: sertraline 50 mg, Lamictal 150 mg ?? Disposition status: Stabilize with medications, day treatment, return to home. ?? Marleni Carty OT - 08/05/2018 8:48 AM CDT Initial OT Assessment 08/05/18 0800 Clinical Impression Affect Appropriate to situation Orientation Oriented to person, place and time Appearance and ADLs Neatly groomed Attention to Internal Stimuli No observed signs Interaction Skills Interacts appropriately with staff;Interacts appropriately with peers Ability to Communicate Needs Independent Verbal Content Articulate;Clear;Appropriate to topic Ability to Maintain Boundaries Maintains appropriate physical boundaries;Maintains appropriate verbal boundaries Participation Initiates participation Concentration Concentrates 30+ minutes Ability to Concentrate Without difficulty Follows and Comprehends Directions Independently follows multi-step directions Memory Delayed and immediate recall intact Organization Independently organizes all tasks Decision Making Independent Planning and Problem Solving Independently plans ahead Ability to Apply and Learn Concepts Applies within group structure Frustrations / Stress Tolerance Independently identifies sources of frustration/stress;Independentlyidentifies skills Level of Insight Some insight Self Esteem Poor self esteem (unable to identify personal strengths from self assessment ) Social Supports Identifies utilizing supports;Has knowledge of support systems Clifton Santa RN - 08/04/2018 10:21 PM CDT Pt presented as quite labile this evening, giddy and laughing and a little hyperverbal. This RN assessed and gave her 5 mg of zyprexa and she also requested visteral so this was also given. Pt states this also helps her sleep at night. Will continue to assess. Jennifer Benavides - 08/04/2018 9:51 PM CDT Pt had a good shift. Present on milieu and social with staff/peers. During check-in pt reported thatshe felt restless and like she's becoming manic. Pt was restless and fidgety during check-in. Pt wasunable to stay still during groups and movies. Pt talked quickly and found it difficult to have a good flow of conversations. Pt reported feeling triggered by pt 424 Z, due to pt's loud voice and swearing. Pt attended groups but had to move frequently. Pt is cooperative with staff and friendly on approach. Denied SI, but reports thoughts of SIB. Pt reported having some depression when she was feelingcalmer. Good visit with family. Pt is receptive to treatment advice from team and feels motivated to improve her mental health. 08/04/181999 Behavioral Health Hallucinations denies / not responding to hallucinations Thinking intact Orientation person: oriented;place: oriented;date: oriented;time: oriented Memory baseline memory Insight insight appropriate to situation;insight appropriate to events Judgement intact Eye Contact at examiner Affect full range affect Mood mood is calm;other (see comments) (hypomanic) Physical Appearance/Attire attire appropriate to age and situation Hygiene well groomed Suicidality other (see comments) (denies) 1. Wish to be No 2. Non-Specific Active Suicidal Thoughts No Elopement (none stated or observed) Activity other (see comment) (active on milieu) Speech clear;coherent Medication Sensitivity no stated side effects;no observed side effects Psychomotor / Gait hyperactive;balanced;steady Activities of Daily Living Hygiene/Grooming independent Oral Hygiene independent Dress street clothes;independent Room Organization independent Stephen Smith - 08/04/2018 9:41 PM CDT 08/04/182099 Therapeutic Recreation Type of Intervention structured groups Activity leisure education Response Participates, initiates socially appropriate Hours 1 Pt participated in Therapeutic Recreation group with focus on leisure education, socialization, and acquisition of knowledge and skills. Pt was fully engaged and cooperative in group recreational intervention; leisure inventory. Pt participated through the entire duration of the group, often having sides discussion about various activites. Pt discussed some healthy interests she enjoyed during free time with friends. Showed progress in session goals. Pt mood was energetic and hyperverbal with interactions. Cristela Turner APRN CNS - 08/04/2018 6:36 PM CDT [facility], [place] Psychiatric Progress Note Interim History: The patient's care was discussed with the treatment team during the daily team meeting and/or staff's chart notes were reviewed. Staff report patient is visible in the milieu. Psychiatric symptoms and interventions: Started sertraline 50 mg to address mood and anxiety. Continued Lamictal 100 mg to address mood instability Medical: no acute issues Behavioral/psychology/social: Encouraged patient to attend therapeutic hospital programming. Patient has not required restraint or seclusion within the last 24 hours. Medications: ??? lamoTRIgine 100 mg Oral At Bedtime ??? sertraline 50 mg Oral Daily Allergies: Allergies Allergen Reactions ??? Amoxicillin GI Disturbance Labs: No results found for this or any previous visit (from the past 24 hour(s)). Psychiatric Examination: BP 131/58 Pulse 86 Temp 97.5 ??F (36.4 ??C) (Tympanic) Resp 16 Wt 63.7 kg (140 lb 6.4 oz) LMP 08/01/2018 SpO2 96% BMI 22.66 kg/m?? Weight is 140 lbs 6.4 oz Body mass index is 22.66 kg/m??. Orthostatic Vitals Most Recent Sitting Orthostatic BP 131/58 04/ 1500 Sitting Orthostatic Pulse (bpm) 86 04/03 1500 Standing Orthostatic BP 120/65 04/03 0849 Standing Orthostatic Pulse (bpm) 93 04/ 0849 Appearance: awake, alert and adequately groomed Attitude: cooperative Eye Contact: good Mood: anxious and depressed Affect: intensity is blunted Speech: normal prosody Psychomotor Behavior: no evidence of tardive dyskinesia, dystonia, or tics Throught Process: logical, linear and goal oriented Associations: no loose associations Thought Content: passive suicidal ideation present Insight: fair Judgement: fair Oriented to: time, person, and place Attention Span and Concentration: fair Recent and Remote Memory: intact Clinical Global Impressions First: Considering your total clinical experience with this particular patient population, how severe are the patient's symptoms at this time?: 6 (08/03/181330) Compared to the patient's condition at the START of treatment, this patient's condition is:: 6 (08/03/181330) Most recent: Considering your total clinical experience with this particular patient population, how severe are the patient's symptoms at this time?: 6 (08/03/181330) Compared to the patient's condition at the START of treatment, this patient's condition is:: 6 (08/03/181330) Precautions: Behavioral Orders Procedures ??? Code 1 - Restrict to Unit ??? Routine Programming As clinically indicated ??? Self Injury Precaution Hx of cutting ??? Status 15 Every 15 minutes. ??? Suicide precautions Patients on Suicide Precautions should have a Combination Diet ordered that includes a Diet selection(s) AND a Behavioral Tray selection for Safe Tray - with utensils, or Safe Tray - NO utensils Suicidal ideation prior to admission. DIagnoses: 1. Major depressive disorder, recurrent, severe without psychosis. 2. Rule out bipolar disorder, recent episode depressed. 3. Suicidal ideation. Plan: Legal status: Voluntary Medication management: sertraline 50 mg, Lamictal 100 mg Disposition status: Stabilize with medications, day treatment, return to home. Erika Louise - 08/04/2018 2:56 PM CDT Pt has been present in the milieu and has participated well in groups this shift. Pt presents with afull range affect and calm mood. Pt states that she feels better today, though she is nervous/anxious about her mother visiting donald. Pt denies experiencing any hallucinations or delusions at thistime. Pt denies experiencing any SI or SIB at this time. Pt has been respectful and cooperative thisshift. 08/04/18 1452 Behavioral Health Hallucinations denies / not responding to hallucinations Thinking intact Orientation person: oriented;place: oriented;date: oriented;time: oriented Memory baseline memory Insight insight appropriate to situation;insight appropriate to events Judgement intact Eye Contact at examiner Affect full range affect Mood mood is calm Physical Appearance/Attire attire appropriate to age and situation Hygiene well groomed Suicidality other (see comments) (Pt denies SI) 1. Wish to be No 2. Non-Specific Active Suicidal Thoughts No Self Injury other (see comment) (Pt denies SIB) Activity other (see comment) (Pt present in the milieu; participates in groups) Speech clear;coherent Medication Sensitivity no stated side effects;no observed side effects Psychomotor / Gait balanced;steady Activities of Daily Living Hygiene/Grooming independent Oral Hygiene independent Dress scrubs (behavioral health);independent Laundry with supervision Room Organization independent Mellisa Ventura - 08/03/2018 11:32 PM CDT Pt requested to have a family meeting with her aunt, mother, brother and boyfriend. Pt reported thatshe thinks this would be beneficial for her mental health. Aisha Marie - 08/03/2018 9:51 PM CDT Participated in Music Therapy group with focus on mood elevation, validation and decreasing anxiety and improved group cohesiveness. Engaged and cooperative in music listening interventions. Showed progress in session goals. Mellisa Ventura - 08/03/2018 9:16 PM CDT 08/03/18 2100 Behavioral Health Hallucinations denies / not responding to hallucinations Thinking intact Orientation person: oriented;place: oriented;date: oriented;time: oriented Memory baseline memory Insight insight appropriate to events;insight appropriate to situation Judgement intact Eye Contact at examiner Affect full range affect Mood mood is calm Physical Appearance/Attire attire appropriate to age and situation Hygiene well groomed Suicidality other (see comments) (pt denied SI) 1. Wish to be No 2. Non-Specific Active Suicidal Thoughts No Self Injury thoughts only Elopement (no concerns) Activity other (see comment) (pt is social and visible in the milieu) Speech coherent;clear Medication Sensitivity no stated side effects;no observed side effects Psychomotor / Gait balanced;steady Activities of Daily Living Hygiene/Grooming independent Oral Hygiene independent Dress independent Room Organization independent Pt reported SIB thoughts and urges when there was another pt who was triggering. Pt accepted essential oils for stress and was thankful to staff for checking in with her. Pt reported that encouragingher to participate in group and checking in with her are both effective in decreasing her SIB. Pt rep orted that she is hoping to come up with a personal plan of care. Pt reported depression at 5/10 with 10 being the worst. Pt was visible and social in the milieu. Belinda Yañez I - 08/03/2018 10:43 AM CDT Images from the original note were not included. 08/03/18 1041 Patient Belongings Did you bring any home meds/supplements to the hospital? Yes Disposition of meds Sent to security/pharmacy per site process Patient Belongings locker Patient Belongings Put in Hospital Secure Location (Security or Locker, etc.) cell phone/electronics;clothing;contacts;glasses;shoes Belongings Search Yes Clothing Search Yes Second Staff Erika Sousa Belongings in Locker: phone w/case, 1 cord with 1 USB plug-in, 1 purple blanket, Rosemarie Secret duffle bag, 1 water bottle, old spice deodorant, toothpaste, toothbrush in case, glasses case, 2 contactcases, 2 multi-purpose solution, 3 T- shirts, 2 sweat pants with elastic waist and ankles, 3 leggings, long sleeve shirts 2, 1 sweatshirt, 1 pair of shorts, 4 pair underwear, 3 pair of socks, 3 pair of bras, 3 pair of sports bars, 1 pair of winter boots Items sent to Security: Medications - Processed by Eloina Dunn Admission: I am responsible for any personal items that are not sent to the safe or pharmacy. [facility] is not responsible for loss, theft or damage of any property in my possession. Signature: Date: Time: Staff Signature: Date: Time: 2nd Staff person, if patient is unable/unwilling to sign: Signature: Date: Time: Discharge: [facility] has returned all of my personal belongings: Signature: Date: Time: Staff Signature: Date: Time: documented in this encounter H&P Notes Cristela Turner APRN SURGICAL ASSISTANT - 08/03/2018 1:52 PM CDT Admitted: 08/03/2018 IDENTIFYING INFORMATION: Kera Figueroa is a 18-year-old single female presenting with increased depression and suicidal ideation and urges for self-injurious behavior. The patient was cleared by ED for inpatient admission to unit 4A. CHIEF COMPLAINT: I am just waiting for the phone to ring with more bad news. HISTORY OF PRESENT ILLNESS: Kera Figueroa is a 18-year-old single female presenting with increased depression, suicidal ideation and strong urges for self-injurious behavior. The patient engaged in cutting herself, her thumb and wrist. The patient states that she enjoyed seeing the blood. The patient reports multiple stressors. Her father completed suicide in 05/2018. The patient reports that her father of a gunshot wound after feeling extremely guilty after a DUI. Father drove himself out into a field where her previous boyfriend (a friend of the family) of a vehicle accident. The patient reports she has an older brother who survived a suicide attempt by gunshot to the head. The patient reports that he is our miracle child. The patient's brother attempted suicide 4 years ago. He now is able to work, walk and function pretty much as he did prior to his suicide attempt.The patient is reporting increased symptoms of depression of lying in bed a lot, fatigue, racing thoughts, not being able to sleep. The patient also feels like she is a burden to her mother. The patient feels guilty because she lashes out at her mother. The patient states she has no reason, but she feels that she is at her worst with her mother. GOALS FOR THIS HOSPITALIZATION: Adjustment in medication and therapy. PSYCHIATRIC REVIEW OF SYSTEMS: The patient reports that she is depressed. She has a very poor mood. She has negative thinking towards self. She is feeling worthless, not good enough. The patient statesthat she feels that she is a burden to her mother. She is very irritable, especially with her mother. She has very poor motivation, poor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 08/05/2018 [facility] 1.04 mg/dL 10:05 AM [facility] GFR Estimate >90 >60 08/05/2018 [facility] mL/min/{1. 10:05 AM [facility] [id number]} [facility] Comment: Non GFR Calc Starting 2018, serum creatinine ba sed estimated GFR (eGFR) will be calculated using the Chronic Kidney Dise [facility] Epidemiology Collaboration (CKD-EPI) equation. GFR Estimate If >90 >60 mL/min/{1.73_m2} 08/05/2018 10 :05 AM [facility] Black [facility] Comment: GFR Calc Starting 2018, serum creatinine ba sed estimated GFR (eGFR) will be calculated using the Chronic Kidney Dise [facility] Epidemiology Collaboration (CKD-EPI) equation. Calcium 8.7 8.5 - 10.1 08/05/2018 10:05 AM [facility] [place] mg/dL [facility] Bilirubin Total 0.2 0.2 - 1.3 08/05/2018 10:05 AM [facility] [place] mg/dL [facility] Albumin 3.3 (L) 3.4 - 5.0 g/dL 08/05/2018 10:05 AM [facility] Protein Total 7.0 6.8 - 8.8 g/dL 08/05/2018 10:05 AM [facility] Alkaline Phosphatase 82 40 - 150 U/L 08/05/2018 10:05 AM [facility] ALT 9 0 - 50 U/L 08/05/2018 10:05 AM [facility] AST 13 0 - 45 U/L 08/05/2018 10:05 AM [facility] Specimen Anatomical Collection Method Collection Time Receive d Time (Source) Location / / Volume Laterality Blood specimen 08/05/2018 9:02 AM 019 9:08 (specimen) CDT AM CDT Cristela Lala Yue PACHECON SURGICAL ASSISTANT LAB - BLOOD ORDERABLES Performing Organization Address City/State/ZIP Code Phon e Number [facility] [address] [place] [address] [facility] documented in this encounter Visit Diagnoses Diagnosis Bipolar affective disorder, remission st atus unspecified (H) - Primary Depression with anxiety Dysthymic disorder Suicidal ideation documented in this encounter Administered Medications Inactive Administered Medications - up to 3 most recent administrations Medication Order MAR Action Action Date Dose Rate Site acetaminophen (TYLENOL) tablet 650 Given 08/05/2018 1:08 PM CDT 650 mg mg 650 mg, Oral, EVERY 4 HOURS PRN, mild pain, Starting on Thu08/03/18 at 1031, Do not use if the patient has significant liver disease. MAX acetaminophen 3000 mg/24 hrs for patients greater than or equal to 65 years old. Maximum acetaminophen dose from all sources = 75 mg/kg/day not to exceed 4 grams/day. Given 08/03/2018 2:44 PM CDT 650 mg alum & mag hydroxide-simethicone (MYLANT A ES/MAALOX ES) suspension 30 mL 30 mL, Oral, EVERY 4 HOURS PRN, indigest ion, Starting on Thu08/03/18 at 1032, Shake well. bisacodyl (DULCOLAX) Suppository 10 mg 10 mg, Rectal, DAILY PRN, constipation, Starting on 08/03/18 at 1032 hydrOXYzine (ATARAX) tablet 25-50 mg Given 08/08/2018 12:01 AM CDT 25 mg 25-50 mg, Oral, EVERY 4 HOURS PRN, anxiety, Starting on Thu08/03/18 at 1034 Given 08/07/2018 10:41 PM CDT 25 mg Given 08/04/2018 9:50 PM CDT 50 mg lamoTRIgine (LaMICtal) tablet 100 mg Given 08/04/2018 8:06 PM CDT 100 mg 100 mg, Oral, AT BEDTIME, First dose on Thu08/03/18 at 2200 Given 08/03/2018 10:20 PM CDT 100 mg lamoTRIgine (LaMICtal) tablet 150 mg Given 08/11/2018 9:36 PM CDT 150 mg 150 mg, Oral, AT BEDTIME, First dose (after last modification) on Thu08/05/18 at 2100 Given 08/10/2018 9:53 PM CDT 150 mg Given 08/09/2018 10:44 PM CDT 150 mg magnesium hydroxide (MILK OF MAGNESIA) s uspension 30 mL 30 mL, Oral, AT BEDTIME PRN, constipatio n, Starting on Thu08/03/18 at 1032, Shake well. OLANZapine (zyPREXA) injection 10 mg 10 mg, Intramuscular, 3 TIMES DAILY PRN, agitation, associated with psychosis or diane, Starting on Thu08/03/18 at 1034, N ot to exceed 30 mg in 24 hours. Consider lower dose if sedation or hypotension. Dissolve the co ntents of the 10 mg vial using 2.1 mL of Sterile Water for Injection to provide a solution containing 5 mg/mL of olanzapine. Withdraw the ordere d dose from vial. Use immediately (within 1 hour) after reconstitution. Discard any unused portion . OLANZapine (zyPREXA) tablet 5-10 mg Given 08/04/2018 9:50 PM CDT 5 mg 5-10 mg, Oral, 3 TIMES DAILY PRN, agitation, associated with psychosis or diane, Starting on Thu08/03/18 at 1034, Consider lower dose if sedation or hypotension. Not to exceed 30 mg in 24 hours. Combined IM and PO doses may significantly increase the risk of orthostatic hypotension at 30 mg per day or higher. sertraline (ZOLOFT) tablet 25 mg Given 08/12/2018 8:46 AM CDT 25 mg 25 mg, Oral, DAILY, First dose (after last modification) on Thu08/10/18 at 0800 Given 08/11/2018 8:33 AM CDT 25 mg Given 08/10/2018 8:47 AM CDT 25 mg sertraline (ZOLOFT) tablet 50 mg Given 08/09/2018 9:04 AM CDT 50 mg 50 mg, Oral, DAILY, First dose on Thu08/03/18 at 1130 Given 08/08/2018 7:40 AM CDT 50 mg Given 08/07/2018 9:09 AM CDT 50 mg traZODone (DESYREL) tablet 50 mg Given 08/05/2018 12:36 AM CDT 50 mg 50 mg, Oral, AT BEDTIME PRN, sleep, Starting on Thu08/03/18 at 1032, September repeat x 1 Given 08/03/2018 10:55 PM CDT 50 mg documented in this encounter Active and Recently Administered Medications Times are shown in CDT. Scheduled Medication Order 08/10/2018 08/11/2018 08/12/2018 lamoTRIgine (LaMICtal) tablet 150 mg 2152 (Given - Pro vider: Shayy Hanks RN) 2135 (Given - Provider: Gayle Quiroz RN) 150 mg, Oral, AT BEDTIME, First dose on Thu08/05/18 at 2100 sertraline (ZOLOFT) tablet 25 mg 0847 (Given - Provider: Prudencio Grace RN) 0833 (Given - Provider: Clifton Santa RN) 0846 (Given - Provider: Clifton Santa RN) 25 mg, Oral, DAILY, First dose on Thu08/10/18 at 0800 PRN Medication Order 08/10/2018 08/11/2018 08/12/2018 acetaminophen (TYLENOL) tablet 650 mg 650 mg, Oral, EVERY 4 HOURS PRN, mild pa in, Starting Thu08/03/18 at 1031, Do not use if the patient has significant liver disease. MAX acetaminophen 3000 mg/24 hrs for patients greater than or equal to 6 5 years old. Maximum acetaminophen dose from all sources = 75 mg/kg/day not to exceed 4 grams/day. alum & mag hydroxide-simethicone (MYLANTA ES/MAALOX ES) suspensi on 30 mL 30 mL, Oral, EVERY 4 HOURS PRN, indigest ion, Starting Thu08/03/18 at 1032, Shake well. bisacodyl (DULCOLAX) Suppository 10 mg 10 mg, Rectal, DAILY PRN, constipation, Starting Thu08/03/18 at 1 032 hydrOXYzine (ATARAX) tablet 25-50 mg 25-50 mg, Oral, EVERY 4 HOURS PRN, anxiety, Starting 08/03/18 at 1034 magnesium hydroxide (MILK OF MAGNESIA) suspension 30 mL 30 mL, Oral, AT BEDTIME PRN, constipatio n, Starting e 08/03/18 at 1032, Shake well. OLANZapine (zyPREXA) injection 10 mg(Linked Group 1) 10 mg, Intramuscular, 3 TIMES DAILY PRN, agitation, associated with psychosis or diane, Starting Thu08/03/18 at 1034, Not to exceed 30 mg in 24 hours. Consider lower dose if sedation or hypotension. Diss olve the contents of the 10 mg vial usin g 2.1 mL of Sterile Water for Injection to provide a solution containing 5 mg/mL of olanzapine. Withdraw the ordered dose from vial. Use immediately (within 1 kaela r) after reconstitution. Discard any unused portion. OLANZapine (zyPREXA) tablet 5-10 mg(Linked Group 1) 5-10 mg, Oral, 3 TIMES DAILY PRN, agitat ion, associated with psychosis or diane, Starting e 08/03/18 at 1034, Consider lower dose if sedation or hypotension. Not to exceed 30 mg in 24 hours. Combined IM and PO doses may significantly increase the risk of orthostatic hypotension at 30 mg per day or higher. Linked Groups Order Group 1: OLANZapine (zyPREXA) tablet 5-10 mgJump to med 5-10 mg, Oral, 3 TIMES DAILY PRN, agitat ion, associated with psychosis or diane, Starting Thu08/03/18 at 1034
Consider lower dose if sedation or hypotension. Not to exceed 30 mg in 24 hours.&amp ;nbsp;Combined IM and PO doses may signi ficantly increase the risk of orthostatic hypotension at 30 mg per day or higher.
Or OLANZapine (zyPREXA) injection 10 mgJump to med 10 mg, Intramuscular, 3 TIMES DAILY PRN, agitation, associated with psychosis or diane, Starting 08/03/18 at 1034
Not to exceed 30 mg in 24 hours. Consider lower dose if se dation or hypotension. Dissolve the contents of the 10 mg vial using 2.1 mL of Sterile Water for Injection to provide a solution containing 5 mg/mL of olanzapine. Withdraw the ordered dose from vial. Use immediately (within 1 hour) a fter reconstitution. Discard any unused portion.
documented in this encounter Care Teams Auto Inspection Specialist Relationship Specialty Start Date End Date [facility] PCP - General 08/02/18 [facility]- [address] [place] [address] documented as of this encounter
--- OUTSIDE RECORDS SUMMARY | 2022-01-21 09:08 | XMS_ITS | Encounter Summary ---
:2000 Author Organization [facility] Address [address], [place] [address] Care Team Providers Name Role Phone Deanna Kimble MD Primary Care Provider Reason for Visit Reason Comments LAB RESULTS Encounter Details Date Type Department Care Team Description 07/02/2017 Telephone [facility] Martina contreras, LAB RESULTS Clinic Darlene Wesley MD [address] [place] [address], [address] [place], [place] [id number] [place] [address] [id number] (Wo rk) Social History Tobacco Use Types Packs/Day Years Used Date Smoking Tobacco: Some Days Cigarettes 0.1 3 S tarted: 05/04/2015 Smokeless Tobacco: Never Sex Assigned at Date Recorded Not on file documented as of this encounter Nursing Notes Ashley Moss, RN - 07/02/2017 11:09 AM CST Called pt and informed of Dr. Sanches's comments/recommendations below. Pt verbalized understanding and agreed with plan of care. Ashley Moss RN 07/02/2017, 11:10 AM SCREEN PRINTING RACKER Kesha Falcon RN - 07/02/2017 8:47 AM CST ----- Message from Darlene Sanches MD sent at 07/01/2017 5:09 PM SILK SCREEN PRINTING RACKER ----- TPO was elevated. 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 This is associated with hives and is why we checked this. Thyroid function is normal, so no treatment of thyroid is needed at this time. However, this patient should have their thyroid checked annually (TSH) from now on as they are at increased risk of developing thyroid disease. All other screening labs unremarkable. SCREEN PRINTING RACKER documented in this encounter Plan of Treatment Not on filedocumented as of this encounter Visit Diagnoses Not on filedocumented in this encounter Care Teams Senior Qa Automation Engineer Relationship Specialty Start Date End Date Deanna Kimble MD PCP - General Family Practice 03/10/17 [address] [place] [address] documented as of this encounter
--- OUTSIDE RECORDS SUMMARY | 2022-01-21 09:08 | XMS_ITS | Clinical Summary ---
:2000 Author Organization [facility] Address [address], [place] [address] Care Team Providers Name Role Phone Deanna Kimble MD Primary Care Provider Source Comments You are receiving this document as you are listed as the primary care provider,follow-up provider, or the patient has been referred to you for consultation.This is in compliance with the Medicare and Medicaid EHR Incentive Program,which states Providers who transition their patient to another setting of careor provider of care or refers their patient to another provider of care shouldprovide summarycare record for each transition of care or referral. [employer] Allergies Active Allergy Reactions Severity Noted Date Comments Amoxicillin Gastrointestinal 06/16/2017 Medications Medication Sig Dispensed Refills Start Date End Date Status lamoTRIgine (LAMICTAL) Take 100 mg by 0 Active 100 MG mouth daily. tabletIndications: Chronic urticaria, Food intolerance escitalopram oxalate Take 10 mg by 0 Active (LEXAPRO) 10 MG mouth daily. tabletIndications: Chronic urticaria, Food intolerance Etonogestrel-Ethinyl Insert 1 Each 0 Active Estradiol (NUVARING) vaginally . 0.12-0.015 MG/24HR Insert on or vaginal before 5th day of ringIndications: cycle, remove Chronic urticaria, Food after 3 wks,after intolerance 1 week break insert a new ring benzoyl peroxide Apply topically 0 Active (BENZACAC) 10 % daily as needed. gelIndications: Chronic urticaria, Food intolerance cholecalciferol Take 2,000 Units 0 Active (VITAMIND3) 2000 UNITS by mouth daily. tabletIndications: Chronic urticaria, Food intolerance VITAMIN B COMPLEX-C Take 1 Cap by 0 Active ORIndications: Chronic mouth daily. urticaria, Food intolerance Active Problems No known active problems Social History Tobacco Use Types Packs/Day Years Used Date Smoking Tobacco: Some Days Cigarettes 0.1 3 S tarted: 05/04/2015 Smokeless Tobacco: Never Sex Assigned at Date Recorded Not on file Last Filed Vital Signs Vital Sign Reading Time Taken Comments Blood Pressure 110/60 06/16/2017 2:13 PM COUNCIL MEMBER Pulse 76 06/16/2017 2:13 PM COUNCIL MEMBER Temperature - - Respiratory Rate - - Oxygen Saturation 99% 06/16/2017 2:13 PM COUNCIL MEMBER Inhaled Oxygen Concentration - - Weight 64.4 kg (142 lb) 06/16/2017 2:13 PM COUNCIL MEMBER Height 165.1 cm (5' 5) 06/16/2017 2:13 PM COUNCIL MEMBER Body Mass Index 23.63 06/16/2017 2:13 PM COUNCIL MEMBER Plan of Treatment Health Maintenance Due Date Last Done Comments Cervical Cancer Screening Due 1998 Chlamydia 1998 Hep C Screening (Preventive 1998 Services) HepB (1) 1998 COVID-19 Vaccine (#1) 1998 HPV Vaccine (1 - 2-dose series) 2009 HIV Screening (Preventive 2014 Services) Adult Preventive Visit 2016 DTaP/Tdap/Td (1 - Tdap) 2017 Influenza (#1) 2022 Zoster/Shingles (1 of 2) 2048 HepA Aged Out No longer eligib le based on patient's age to complete this topic Hib Aged Out No longer eligib le based on patient's age to complete this topic IPV (Polio) Aged Out No longer eligib le based on patient's age to complete this topic MCV4 Aged Out No longer eligib le based on patient's age to complete this topic Pneumococcal Aged Out No longer eligib le based on patient's age to complete this topic Insurance Payer Benefit Plan / Subscriber ID Effective Dates Phone Addre ss Type Group [place] [id number] 2016-Present [address] [address] [place] [phone] Care Teams Capacity Planning Manager Relationship Specialty Start Date End Date Deanna Kimble MD PCP - General Family Practice 03/10/17 [address], [place] [address]
--- OUTSIDE RECORDS SUMMARY | 2022-01-21 09:08 | XMS_ITS | Encounter Summary ---
:2000 Author Organization [facility] Address [address] [place] [address] Care Team Providers Name Role Phone Deanna Kimble MD Primary Care Provider Encounter Details Date Type Department Care Team Description 11/10/2019 criselda Mcdaniels [phone] Social History Tobacco Use Types Packs/Day Years Used Date Smoking Tobacco: Some Days Cigarettes 0.1 3 S tarted: 05/04/2015 Smokeless Tobacco: Never Sex Assigned at Date Recorded Not on file documented as of this encounter Progress Notes FAMILY MEDICINECRISELDA PROVIDER - 11/10/2019 12:00 AM CDT criselda Treatment Plan Diagnosis Urinary Tract Infection Visit Date November 10, 2019 Anne Marie Jones Date of : 89 Provider Elisabeth Cabrera, Nurse Practitioner Note From Provider Cuba Kenney,Please see the treatment plan for what you can use to treat these bladder symptoms. Request a call back if your symptoms don't improve.Be well,Elisabeth Treatment Plan Since you have a bacterial infection, let's try an antibiotic. I sent a prescriptionto [facility] . I've also listed a few of the best ways to soothe your discomfortand some additional self-care tips to get you on the road to feeling better.If your symptoms don't improve after 3 days, or if you havequestions, please select Help to Request a Call Back andwe'll talk about your next steps for free. Order(s) Macrobid 100 mg capsule Take 1 capsule oral every twelve hours with meals for 5 days Note: Take on a full stomach. Refills: None Sent To: [facility] [address] [place], [place] [id number] Treatment Plan Self Care Tip Topics Warm Packs Drink Water Avoid Caffeine What to Expect If you follow the recommendations I made on the Treatment tab, your symptomsshould improve in about 3 days. If your symptoms don'timprove after 3 days, or if you have questions, please select Help toRequest a Call Back and we'll helpdetermine your next step for free. What to Watch Out For Give us a call if you experience: ??? High fever ??? Shaking chills ??? Worsening pain with urination ??? Severe pain in your back, abdomen or pelvis My Conditions, Orders, Allergies as of November 10, 2019 Standard condition list Depression Bipolar Disorder Current orders Macrobid (nitrofurantoin monohyd/m-cryst) trazodone (trazodone) lamotrigine (lamotrigine) Allergies amoxicillin (amoxicillin), oral [employer] Information [facility] We are an online clinic open 24/11. If you have any questions or comments about this visit, please call or email [email or web address] documented in this encounter Plan of Treatment Not on filedocumented as of this encounter Visit Diagnoses Not on filedocumented in this encounter Care Teams Mechanic Foreman Relationship Specialty Start Date End Date Deanna Kimble MD PCP - General Family Practice 03/10/17 [address] [place] [address] documented as of this encounter
--- OUTSIDE RECORDS SUMMARY | 2022-01-21 09:08 | XMS_ITS | Encounter Summary ---
:2000 Author [facility] Address [address], [place] [address] Care Team Providers Name Role Phone Deanna Kimble MD Primary Care Provider Encounter Details Date Type Department Care Team Description 06/16/2017 Office Visit [facility] Clinic Provider [address] [facility], [address] [place] [address] Social History Tobacco Use Types Packs/Day Years Used Date Smoking Tobacco: Some Days Cigarettes 0.1 3 S tarted: 05/04/2015 Smokeless Tobacco: Never Sex Assigned at Date Recorded Not on file documented as of this encounter Plan of Treatment Not on filedocumented as of this encounter Visit Diagnoses Not on filedocumented in this encounter Care Teams Park Manager Relationship Specialty Start Date End Date Deanna Kimble MD PCP - General Family Practice 03/10/17 [address] [place] [address] documented as of this encounter
--- OUTSIDE RECORDS SUMMARY | 2022-01-21 09:08 | XMS_ITS | Encounter Summary ---
:2000 Author Organization [facility] Address [address] [place] [address]. [place] [address] Care Team Providers Name Role Phone [facility]- Encounter Details Date Type Department Care Team Description 03/02/2017 [facility] [address] [address] Social History Tobacco Use Types Packs/Day Years Used Date Never Assessed Sex Assigned at Date Recorded Not on file documented as of this encounter Plan of Treatment Not on filedocumented as of this encounter Visit Diagnoses Not on filedocumented in this encounter Care Teams Winderman Relationship Specialty Start Date End Date [facility] PCP - General 08/02/18 [facility]- [address] [place] [address] documented as of this encounter
--- OUTSIDE RECORDS SUMMARY | 2022-01-21 09:08 | XMS_ITS | Encounter Summary ---
:2000 Author Organization [facility] Address [address] [place] [address]. [place] [address] Care Team Providers Name Role Phone Unavailable Primary Care Provider Unavailable Reason for Visit Reason Onset Date Comments Nurse Advice Line 04/12/2013 Encounter Details Date Type Department Care Team Description 04/12/2013 Telephone [facility] DEPT FOR CCW None Nurse Ad vice Line Social History Tobacco Use Types Packs/Day Years Used Date Never Assessed Sex Assigned at Date Recorded Not on file documented as of this encounter Miscellaneous Notes Telephone Encounter - Sharmin Bliss - 04/12/2013 9:54 PM CST [facility] Triage Call Report Patient Name: Anne Marie Jones Call Date & Time: 04/12/2013 7:03:41PM Patient PCP Name: Patient Address: [address] [place] [address] [place] [address] Patient Date of : 2000 Age: 12 yr. Patient Gender: Female Lode Miner Name: Emili Jaime Presenting Problem: Mom calling. Pt usually goes [facility]. Was seen in a [facility] on 04/10/13 for cough and sore throat. Had negative strep test. Given Cheratussin - and took some on Sun evening and Thu evening. Started with mild itchy rash on Mon evening - and it's worse tonight. Looks like tiny pink raised bumps all over body. Fever started tonight also - temp is 101. Cough is now productive with greenish sputum. No SOB, wheezing, edema. Triage Note: Lode Miner Emili Jaime added this note on Apr 12 2013 7:21PM:Advised clinic appt tomorrow. Treat fever with Tylenol PRN. dress lightly, push PO fluids. Can use PO Benadryl for severe itching - or Hydrocortisone or Calamine cream on the skin PRN. Reviewed worsening/emergent symptoms to watch for and advised ER ifthose symptoms occur. Encouraged to call back anytime for questions, concerns, change in symptoms. Mom verbalized understanding and is agreeeable to plan. Guideline Title: Rash - Widespread On Drugs (Pediatric) Recommended Disposition: Override Disposition: See Provider within 24 hours Question Response Question Note Difficulty breathing or wheezing No [1] Hoarseness or cough AND [2] started soon after 1st No dose of drug series [1] Difficulty swallowing, drooling or slurred speech AND No [2] started soon after 1st dose of drug series [1] Life-threatening reaction (anaphylaxis) in the past to No the same drug AND [2] < 2 hours since exposure [1] Purple or blood-colored rash (spots or dots) AND [2] No fever Sounds like a life-threatening emergency to the triager No Localized hives No Rash is only on 1 part of the body (localized) No [1] Strep throat diagnosed AND [2] taking antibiotic AND No [3] scarlet fever rash occurs [1] Rash began while taking amoxicillin OR augmentin No AND [2] NO hives or severe itch Taking non-prescription (OTC) medicine No Taking prescription antihistamine, allergy medicine, No asthma medicine, eyedrops, eardrops or nosedrops [1] Using cream or ointment AND [2] causes itchy rash No where applied Rash started more than 3 days after stopping prescription No drug [1] Widespread hives, itching or facial swelling is the No only symptom AND [2] onset within 2 hours of 1st dose of drug series AND [3] no serious allergic reaction in the past [1] Purple or blood-colored rash (spots or dots) BUT [2] No no fever [1] Fever AND [2] > 105 F (40.6 C) by any route OR No axillary > 104 F (40 C) Child sounds very sick or weak to the triager No Bloody crusts on lips or ulcers in mouth No Large blisters on skin No [1] Bright red skin AND [2] peels off in sheets No [1] Hives AND [2] taking an antibiotic AND [3] fever No [1] Hives AND [2] taking an antibiotic AND [3] no fever No Widespread hives or itching No Face becomes swollen No Taking a sulfa drug or seizure medicine No [1] Widespread rash while on a drug AND [2] looks severe No Joint swelling No [1] Widespread rash while on a prescription drug AND [2] Yes present over 48 hours [1] Rash started within 3 days after antibiotic stopped No AND [2] rash present > 48 hours [1] Mild rash of small pink spots AND [2] present < 48 Yes hours Physician Contacted: Physician Instructions: No Care Advice: - REASSURANCE: - Most rashes like this are NOT due to a drug allergy. - They're viral rashes or a non-allergic type of drug rash. - The only way to be sure is to examine your child. - REASSURANCE: - Most rashes like this are not due to a drug allergy. - They're viral rashes or a non-allergic type of drug rash. - They can be treated at home. - SEE PHYSICIAN WITHIN 24 HOURS IF OFFICE WILL BE OPEN: Your child needs to be examined within the next 24 hours. Call your child'sdoctor when the office opens, and make an appointment. IF OFFICE WILL BE CLOSED: Your child needs to be examined within the next 24 hours. Go to at your convenience. MEDICAL HISTORY Conditions: Condition Note: Medication: Medication Note: Allergy: Reaction: Procedure: Procedure Note: K RIDER documented in this encounter Plan of Treatment Not on filedocumented as of this encounter Visit Diagnoses Not on filedocumented in this encounter
--- OUTSIDE RECORDS SUMMARY | 2022-01-21 09:08 | XMS_ITS | Encounter Summary ---
:2000 Author Organization [facility] Address [address] [place] [address]. [place] [address] Care Team Providers Name Role Phone [facility] mel[facility]ie Clinics- Encounter Details Date Type Department Care Team Description 08/02/2018 Travel Social History Tobacco Use Types Packs/Day Years [...] on filedocumented in this encounter Care Teams Hand Spring Former Relationship Specialty Start Date End Date [facility] And PCP - General 08/02/18 [facility] [address] [place] [address] documented as of this encounter
--- OUTSIDE RECORDS SUMMARY | 2022-01-21 09:08 | XMS_ITS | Encounter Summary ---
:2000 Author Organization [facility] Address [address] [place] [address]. [place] [address] Care Team Providers Name Role Phone [facility] melonie Clinics- Encounter Details Date Type Department Care Team Description 03/02/2017 Office Visit - [facility] Dina Ching, [facility] april SANTANA [address] [facility] [id number] [address] [phone] [place] [address] Social History Tobacco Use Types Packs/Day Years Used Date Never Assessed Sex Assigned at Date Recorded Not on file documented as of this encounter Last Filed Vital Signs Vital Sign Reading Time Taken Comments Blood Pressure 114/70 03/02/2017 2:42 PM CDT Pulse 72 03/02/2017 2:42 PM CDT Temperature 36.9 ??C (98.5 ??F) 03/02/2017 2:42 PM CDT Respiratory Rate - - Oxygen Saturation - - Inhaled Oxygen Concentration - - Weight 63 kg (139 lb) 03/02/2017 2:42 PM CDT Height 165.1 cm (5' 5) 03/02/2017 2:42 PM CDT Body Mass Index 23.13 03/02/2017 2:42 PM CDT Body Mass Index Percentile 67.37 % 03/02/2017 2:42 PM CD T Growth Chart: CDC (Girls, 2-20 Years) documented in this encounter Progress Notes Stefan Ching MD - 03/02/2017 4:07 PM CDTSumarashy: General Progress Note (Physician) Chief Complaint Here today with c/o frequency mild dysuria, cloudy urine. Also interested in allergy testing. History of Present Illness Patient here with a couple of days of UTI symptoms. She also has had hives intermittently over the last year and she like allergy testing to figure out the trigger. Review of Systems No fevers chills back pain or nausea or vomiting Physical Exam Vitals & Measurements T: 98.5(Temporal Artery) HR: 72(Peripheral) BP: 114/70 HT: 65 in WT: 139 lb BMI: 23.13 Skin looks clear today. Overall she appears well. Assessment/Plan Acute UTI Ordered: nitrofurantoin, 1 cap(s) ( 100 mg ), PO, BID, # 14 cap(s), 0 Refill(s), Type: Maintenance, Pharmacy: [facility], 1 cap(s) po bid,x7 day(s) phenazopyridine, 2 tab(s) ( 195 mg ), po, tidpc, # 6 tab(s), 0 Refill(s), Type: Maintenance, Pharmacy: [facility], 2 tab(s) po tidpc,x2 day(s) 40103 office outpatient visit 15 minutes (Charge), Quantity: 1, Acute UTI Urt[place]aria 34220 office outpatient visit 15 minutes (Charge), Quantity: 1, Acute UTI Urticaria POC URINALYSIS, UA* ([facility]), Specimen Type: Urine, Collection Date: 03/02/17 14:50:00 CDT Urticaria Ordered: [id number] office outpatient visit 15 minutes (Charge), Quantity: 1, Acute UTI U[place]aria 98901 office outpatient visit 15 minutes (Charge), Quantity: 1, Acute UTI Urticaria Referral (Request), 03/02/17 15:19:00 CDT, Referred to: Allergy & Immunology, [place]ic[place] Patient Information Name:KERA FIGUEROA Address: [address] [place] [id number] Sex:Female Date of :2000 Emergency Contact:CRYSTAL PABLO Location:[facility] Date of Service:03/02/2017 Primary Care Physician: NONE , Problem List/Past Medical History Ongoing No qualifying data Historical Medications AZO Urinary Pain Relief Max Strength 97.5 mg oral tablet, 195 mg= 2 tab(s), po, tidpc LaMICtal 100 mg oral tablet, 100 mg= 1 tab(s), po, daily Lexapro 10 mg oral tablet, 10 mg= 1 tab(s), po, daily Macrobid 100 mg oral capsule, 100 mg= 1 cap(s), po, bid NuvaRing 0.120 mg-0.015 mg/24 hours vaginal ring, 1 EA, vag, q4 wks Allergies penicillins Social History Smoking Status - 03/02/2017 Never smoker Lab Results Results (Last 90 days) Laboratory Urinalysis UA Dipstick UA Bilirubin: NEGATIVE (03/02/17 02:57 PM CDT) UA Glucose: NEGATIVE (03/02/17 02:57 PM CDT) UA Ketones: NEGATIVE (03/02/17 02:57 PM CDT) UA Leukocyte Esterase: 2+ (03/02/17 02:57 PM CDT) UA Nitrite: NEGATIVE (03/02/17 02:57 PM CDT) UA Protein: NEGATIVE (03/02/17 02:57 PM CDT) UA Specific [place]: 1.020 (03/02/17 02:57 PM CDT) UA pH (03/02/17 02:57 PM CDT) 6.0 (03/02/17 02:57 PM CDT) Urine Occult Blood: TRACE (03/02/17 02:57 PM CDT) UA Microscopic UA Bacteria: Many (03/02/17 03:14 PM CDT) UA Epithelial Cells: Few (03/02/17 03:14 PM CDT) UA RBC: 0-2 (03/02/17 03:14 PM CDT) UA WBC: >100 (03/02/17 03:14 PM CDT) UA WBC Clumps: Present (03/02/17 03:14 PM CDT) documented in this encounter Plan of Treatment Not on filedocumented as of this encounter Procedures Procedure Name Priority Date/Time Associated Diagnosis Comme nts LAB RESULT - HIM SCAN 03/02/2017 documented in this encounter Results LAB RESULT - HIM SCAN (03/02/2017) Narrative This result has an attachment that is no t available. Historical Provider [facility] NON-BEAKER LAB TESTING documented in this encounter Visit Diagnoses Not on filedocumented in this encounter Care Teams Hand Crown Pouncer Relationship Specialty Start Date End Date [facility] And PCP - General 08/02/18 [facility] [address] [place] [id number] documented as of this encounter
--- OUTSIDE RECORDS SUMMARY | 2022-01-21 09:08 | XMS_ITS | Encounter Summary ---
:2000 Author Organization [place] Address Formerly [facility] [place] [address] Care Team Providers Name Role Phone [facility] Clinics- Reason for Visit Reason Comments Suicidal Pt reports she has been havi ng thoughts of self harm since Thursday with no plan, pt states she does not feel safe at home. Encounter Details Date Type Department Care Team Description 08/02/2018 - [facility] [address] [place] [address] Depression, 08/03/2018 [facility], Dawit Doyle [facility] [address] [facility] [address] [place], [place] [address] unspecified Dept Darlene Rojas MD [facility] [address] [place] [address] depression type [address] [facility] Chuy Medeiros MD [facility] [address] [place], [place] [id number] [place] [id number] Social History Tobacco Use Types Packs/Day Years [...] Sign Reading Time Taken Comments Blood Pressure 125/65 08/03/2018 8:29 AM CDT Pulse 75 08/03/2018 8:29 AM CDT Temperature 37.1 ??C (98.8 ??F) 08/03/2018 12:17 AM CDT Respiratory Rate 14 08/03/2018 8:29 AM CDT Oxygen Saturation 100% 08/03/2018 8:29 AM CDT Inhaled Oxygen Concentration - - Weight 64.4 kg (142 lb) 08/02/2018 3:38 PM CDT Height 167.6 cm (5' 6) 08/02/2018 3:38 PM CDT Body Mass Index 22.92 08/02/2018 3:38 PM CDT documented in this encounter Medications at Time [...] every 4 hours as needed for anxiety escitalopram (LEXAPRO) 20 Take 30 mg by mouth 0 08/11/2018 MG tablet daily lamoTRIgine (LAMICTAL) Take 100 mg by mouth 0 08/11/2018 100 MG tablet At Bedtime documented as of this encounter ED Notes Steph Uribe RN - 08/03/2018 7:11 AM CDT Attempted to give report to [place] station 4A. I was told the nurses are in report. They are notavailable until 8am. Erika Rouse RN - 08/02/2018 11:10 PM CDT Attempted to give report to 4A @ [phone]. Was told by Pat who answered the phone that the pt should not come until day shift. Pt has bed under Dr Carrion. Adilene Hyatt LICSW - 08/02/2018 5:29 PM CDT DEC completed assessment. Pt is recommended IP and Central intake was notified. ED will be contactedwhen placement can be arranged. CORRY Leone LICSW DEC Maintenance Team Leader Erika Rouse RN - 08/02/2018 5:26 PM CDT Video Observation initiated, patient informed. Erika Rouse RN Juan Sanderson RN - 08/02/2018 4:13 PM CDT Bed: ED19 Expected date: Expected time: Means of arrival: Comments: Hold Triage when Clean Juan Sanderson RN - 08/02/2018 3:42 PM CDT Bed: ED18 Expected date: Expected time: Means of arrival: Comments: Hold triage SO Nicky Cali MD - 08/02/2018 3:27 PM CDT History Chief Complaint: Depression HPI Anne Marie Jones is a 18 year old female with a history of depression and bipolar disorder who presents with depression. The patient reports that she has struggled with depression for her entire lifeand was additionally diagnosed with bipolar disorder 3 years ago for which she has been taking citalopram and lamotrigine. Three months ago the patient states her father committed suicide and her depression has been increasing in severity since then. Additionally 2 weeks ago the patient states that her citalopram dosage was increased by 10 mg by her psychiatrist and doesn't know if this may be affecting her mood as well. A couple days ago the patient states she cut her left thumb and became scared wh en she felt better after cutting herself. She notes that she used to cut herself with a pocket knifewhen she was in middle school because it [...] at night. 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 The patient currently notes that she has had some rhinorrhea recently and also adds that she has been having some minor inte rmittent left sided rib/chest pain. She otherwise denies any fevers, sore throat, cough, urinary symptoms or changes in bowel movements. The patient states that she does drink socially with her last having had 5-6 drinks a few days ago. She denies any drug use. The patient lives with her mom and boyfriend, however she notes that her mom is currently out of town. Allergies: Amoxicillin Medications: Citalopram Lamotrigine Past Medical History: Depression Bipolar Disorder Past Surgical History: History reviewed. No pertinent surgical history. Family History: History reviewed. No pertinent family history. Social History: Smoking Status: Current Smoker Alcohol Use: Yes Patient presents with her aunt. Marital Status: Single Review of Systems Constitutional: Negative for fever. HENT: Positive for rhinorrhea. Negative for sore throat. Respiratory: Negative for cough. Gastrointestinal: Negative for constipation and diarrhea. Genitourinary: Negative for decreased urine volume, difficulty urinating, dysuria, frequency, hematuria and urgency. Musculoskeletal: + Chest wall pain Psychiatric/Behavioral: Positive for dysphoric mood, self-injury and sleep disturbance. Negative forsuicidal ideas. All other systems reviewed and are negative. Physical Exam Patient Vitals for the past 24 hrs: BP Pulse Heart Rate Resp SpO2 08/03/18 0829 125/65 75 75 14 100 % Physical Exam Physical Exam Constitutional: Patient is oriented to person, place, and time. They appear well-developed and well-nourished. Mild distress secondary to depression. HENT: Mouth/Throat: Oropharynx is clear and moist. Eyes: Conjunctivae normal and EOM are normal. Pupils are equal, round, and reactive to light. Neck: Normal range of motion. Cardiovascular: Normal rate, regular rhythm and normal heart sounds. Exam reveals no gallop and no friction rub. No murmur heard. Pulmonary/Chest: Effort normal and breath sounds normal. Patient has no wheezes. Patient has no rales. Abdominal: Soft. Bowel sounds are normal. Patient exhibits no mass. There is no tenderness. There isno rebound and no guarding. Musculoskeletal: Normal range of motion. Patient exhibits no edema. Neurological: Patient is alert and oriented to person, place, and time. Patient has normal strength.No cranial nerve deficit or sensory deficit. GCS 15. Skin: Very tiny superficial laceration on the tip of her left thumb; not deep and scab is already formed. Psychiatric: Depressed. Somewhat tearful. Not actively suicidal, but fearful that she might hurt herself. Not homicidal, no hallucinations. Emergency Department Course ECG (17:19:07): Rate 72 bpm. TN interval 134 ms. QRS duration 84 ms. QT/QTc 386/422 ms. P-R-T axes -6 -31 6. Normal sinus rhythm. Left axis deviation. Voltage criteria for left ventricular hypertrophy. Abnormal ECG. Interpreted at 1725 by Nicky Cali MD. Laboratory: Drug abuse screen urine: Pending Emergency Department Course: Past medical records, nursing notes, and vitals reviewed. 1559: I performed an exam of the patient and obtained history, as documented above. 1719: EKG was obtained. MELLISSA assessed the patient. I discussed the case with MELLISSA regarding the patient. Patient signed out to Dr. Whelan pending bed placement. Impression & Plan Medical Decision Making: Anne Marie Jones is a 18 year old female presenting to the Emergency Department for depression. Thissounds like it has progressively worsened since her father committed suicide. She feels she needs tocome in to the hospital to help get a hold of her depression. While she is not actively suicidal, she did cut herself the other day which is what she did in the past and she is fearful that she might cut again and deeper. She did not do anything to harm herself today. She uses alcohol, but not today. A urine drug screen has been requested, but none obtained. DEC did assess her and agreed that she is voluntary. There are no beds currently available so at this point I will sign her out to Dr. Whelan pending bed placement. She has been very pleasant and cooperative throughout her time here. ICD-10-CM 1. Depression, unspecified depression type F32.9 Disposition: Patient signed out to Dr. Whelan pending bed placement. Eva Capellan 08/02/2018 EMERGENCY DEPARTMENT I, Eva Capellan, am serving as a scribe at 3:59 PM on 08/02/2018 to document services personally performed by Nicky Washington MD based on my observations and the provider's statements to me. Nicky Cali MD 08/04/18 0128 DAT Dawit Whelan MD - 08/02/2018 3:27 PM CDT History of SIB. Increasing impulsivity and cutting last night with wanting it to bleed more but no suicide ideation. Voluntary. Awaiting Bed. [facility] meds given (lamictal, citalopram) - Has bed at [place] in AM Dawit Whelan MD [facility] [employer] [employer] [facility] 6:03 PM 08/02/18 Dawit Whelan MD 08/03/18 0121 DAT Darlene Rojas MD - 08/02/2018 3:27 PM CDT 18-year-old female with history of depression and bipolar disorder presents with depression. She reports increasing thoughts of self-injurious behavior. Her father recently of suicide. She is feeling impulsive and not safe to be home. She is not suicidal. She is a voluntary admission. Patient no acute events under my care. Patient slept soundly. The patient signed out to the oncoming team pending bed availability. Darlene Rojas MD 08/03/18 0607 documented in this encounter Miscellaneous Notes Pharmacy-Admission Medication History - Darlene Stone RPH - 08/02/2018 6:39 PM CDT Admission medication history interview status for the 08/02/2018 admission is complete. See [facility] admission navigator for prior to admission medications Medication history source reliability:Good Actions taken by pharmacist (provider contacted, etc): d/w patient, reviewed SureScripts to verify doses Additional medication history information not noted on [facility] med list :None Medication reconciliation/reorder completed by provider prior to medication history? No Time spent in this activity: 5 minutes Prior to Admission medications Medication Sig Last Dose Taking? Auth Provider escitalopram (LEXAPRO) 20 MG tablet Take 30 mg by mouth daily 08/02/2018 at am Yes Unknown, Entered ByHistory lamoTRIgine (LAMICTAL) 100 MG tablet Take 100 mg by mouth At Bedtime 08/01/2018 at Unknown time Yes Unknown, Entered By History documented in this encounter Plan of Treatment Not on filedocumented as of this encounter Procedures Procedure Name Priority Date/Time Associated Diagnosis Comme nts DRUG ABUSE SCREEN STAT 08/02/2018 7:33 PM Resu lts for this 77 URINE (FL, RH, CDT procedure are in SH) the results section. EKG 12-LEAD, STAT 08/02/2018 5:19 PM Results f or this TRACING ONLY CDT procedure are i n the results section. documented in this encounter Results Drug abuse screen urine (08/02/2018 7:33 PM CDT) Patholo gist Method Time Signature Amphetamine Qual Negative NEG^Negati 08/02/2018 [place] Urine ve 8:06 PM [facility] Comment: Cutoff for a negative amphetami ne is 500 ng/mL or less. Barbiturates Qual Negative NEG^Negative 08/02/2018 8:06 PM [facility] Comment: Cutoff for a negative barbitura te is 200 ng/mL or less. Benzodiazepine Qual Negative NEG^Negative 08/02/2018 8:06 P M [place] Urine [facility] Comment: Cutoff for a negative benzodiaz epine is 200 ng/mL or less. Cannabinoids Qual Negative NEG^Negative 08/02/2018 8:06 PM [facility] Comment: Cutoff for a negative cannabino id is 50 ng/mL or less. Cocaine Qual Urine Negative NEG^Negative 08/02/2018 8:06 PM [facility] Comment: Cutoff for a negative cocaine i s 300 ng/mL or less. Opiates Qualitative Negative NEG^Negative 08/02/2018 8:0 6 PM [facility] Comment: Cutoff for a negative opiate is 300 ng/mL or less. PCP Qual Urine Negative NEG^Negative 08/02/2018 8:06 PM [facility] Comment: Cutoff for a negative PCP is 25 ng/mL or less. Specimen Anatomical Collection Method Collection Time Receive d Time (Source) Location / / Volume Laterality Urine specimen URINE SPECIMEN 08/02/2018 7:33 PM 08/02 7:48 (specimen) OBTAINED BY CLEAN CDT PM CDT CATCH PROCEDURE / Unknown Nicky Cali MD LAB - URINE ORDERABLES Performing Organization Address City/State/ZIP Code Phon e Number M [facility] [address] [place] [address] [facility] [address] [place] [id number], U [phone] EKG 12 lead (08/02/2018 5:19 PM CDT) [facility] gist Method Time Signature Interpretation ECG Click View RADIOLOGY Image link RESULTS to view waveform and result Specimen (Source) Anatomical Collection Method Collection Time Re ceived Time Location / / Volume Laterality 08/02/2018 5:19 PM CDT Nicky Cali MD ECG ORDERABLES Performing Organization Address City/State/ZIP Code Phon e Number RADIOLOGY RESULTS documented in this encounter Visit Diagnoses Diagnosis Depression, unspecified depression type documented in this encounter Administered Medications Inactive Administered Medications - up to 3 most recent administrations Medication Order MAR Action Action Date Dose Rate Site acetaminophen (TYLENOL) tablet 650 Given 08/02/2018 9:43 PM CDT 650 mg mg 650 mg, Oral, EVERY 4 HOURS PRN, mild pain, fever, Starting on Thu08/02/18 at 1653, Maximum acetaminophen dose from all sources = 75 mg/kg/day not to exceed 4 grams/day. escitalopram (LEXAPRO) tablet 20 mg 20 mg, Oral, DAILY, First dose on Thu08/03/18 at 0800 hydrOXYzine (ATARAX) tablet 25 mg Given 08/03/2018 2:57 AM CDT 25 mg 25 mg, Oral, AT BEDTIME PRN, other, sleep, melatonin augmentation or failure., Starting on Thu08/02/18 at 1653, Offer if unable to sleep 30 minutes after melatonin administration. lamoTRIgine (LaMICtal) tablet 100 mg Given 08/03/2018 12:16 AM CDT 100 mg 100 mg, Oral, AT BEDTIME, First dose on Thu08/02/18 at 2327 LORazepam (ATIVAN) tablet 1 mg 1 mg, Oral, EVERY 8 HOURS PRN, anxiety, Starting on 08/02/18 at 1653 melatonin tablet 3 mg Given 08/03/2018 12:19 AM CDT 3 mg 3 mg, Oral, AT BEDTIME PRN, sleep, insomnia, Starting on Thu08/02/18 at 1653, Offer first for sleep. documented in this encounter Active and Recently Administered Medications Times are shown in CDT. Scheduled Medication Order 08/01/2018 08/02/2018 08/03/2018 escitalopram (LEXAPRO) tablet 20 mg 0800 (Canceled Entry - Provider: Orders Generic Provider - Comment: Automatically canceled at discontinue of medication order) 20 mg, Oral, DAILY, First dose on Thu08/03/18 at 0800 lamoTRIgine (LaMICtal) tablet 100 mg 0016 (Given - Provider: Nancy Harrington RN) 100 mg, Oral, AT BEDTIME, First dose on 08/02/18 at 2327 PRN Medication Order 08/01/2018 08/02/2018 08/03/2018 acetaminophen (TYLENOL) tablet 650 mg 21 43 (Given - Provider: Erika Rouse RN) 650 mg, Oral, EVERY 4 HOURS PRN, mild pa in, fever, Starting Thu08/02/18 at 1653, Maximum acetaminophen dose from all sources = 75 mg/kg/day not to exceed 4 grams/day. hydrOXYzine (ATARAX) tablet 25 mg 0257 (Given - Provider: Nancy Harrington RN) 25 mg, Oral, AT BEDTIME PRN, other, slee p, melatonin augmentation or failure., Starting Thu08/02/18 at 1653, Offer if unable to sleep 30 minutes after melatonin administration. LORazepam (ATIVAN) tablet 1 mg 1 mg, Oral, EVERY 8 HOURS PRN, anxiety, Starting Thu08/02/18 at 1 653 melatonin tablet 3 mg 0019 (Give n - Provider: Nancy Harrington RN) 3 mg, Oral, AT BEDTIME PRN, sleep, Insom miley, Starting Thu08/02/18 at 1653, Offer first for sleep. documented in this encounter Care Teams Rater Associate Relationship Specialty Start Date End Date [facility] PCP - General 08/02/18 [facility]- [address] [place], [place] [id number] documented as of this encounter
--- OUTSIDE RECORDS SUMMARY | 2022-01-21 09:08 | XMS_ITS | Encounter Summary ---
:2000 Author Organization [place] Address [address] [place] [address]. [place] [address] Care Team Providers Name Role Phone [facility] mel[facility] Clinics- Encounter Details Date Type Department Care Team Description 08/03/2018 Travel Social History Tobacco Use Types Packs/Day [...] on filedocumented in this encounter Care Teams Flight Security Specialist Relationship Specialty Start Date End Date [facility] And PCP - General 08/02/18 [facility] [address] [place] [address] documented as of this encounter
--- OUTSIDE RECORDS SUMMARY | 2022-01-21 09:08 | XMS_ITS | Encounter Summary ---
:2000 Author Organization [facility] Address [address], [place] [address] Care Team Providers Name Role Phone Deanna Kimble MD Primary Care Provider Encounter Details Date Type Department Care Team Description 06/16/2017 Orders Only External to External, [place] [address] Social History Tobacco Use Types Packs/Day Years Used Date Smoking Tobacco: Some Days Cigarettes 0.1 3 S tarted: 05/04/2015 Smokeless Tobacco: Never Sex Assigned at Date Recorded Not on file documented as of this encounter Plan of Treatment Not on filedocumented as of this encounter Procedures Procedure Name Priority Date/Time Associated Diagnosis Comme nts LAB OP 06/16/2017 12:00 AM Results for this [employer]ER procedure are i n the results section . documented in this encounter Results LAB OP (06/16/2017 12:00 AM PIPE THREADER) Specimen (Source) Anatomical Location Collection Method / Collectio n Time Received Time / Laterality Volume 06/16/2017 Narrative This result has an attachment that is no t available. Provider External DUMMY/OTHER/AR documented in this encounter Visit Diagnoses Not on filedocumented in this encounter Care Teams Construction Foreman Relationship Specialty Start Date End Date Deanna Kimble MD PCP - General Family Practice 03/10/17 [address] [place] [address] documented as of this encounter
--- OUTSIDE RECORDS SUMMARY | 2022-01-21 09:09 | XMS_ITS | Encounter Summary ---
:2000 Author Organization [facility] Address [address] [place] [address] Care Team Providers Name Role Phone Unavailable Primary Care Provider Unavailable Encounter Details Date Type Department Care Team Description 04/27/2015 Hospital Encounter HX [facility] Denton Mirza M.D. [address] [place] [address] [phone] (Wo rk) Social History Tobacco Use Types Packs/Day Years Used Date Smoking Tobacco: Never Assessed Sex Assigned at Date Recorded Not on file documented as of this encounter Last Filed Vital Signs Vital Sign Reading Time Taken Comments Blood Pressure 128/71 04/27/2015 12:06 PM REHABILITATION COUNSELLOR Pulse 67 04/27/2015 12:06 PM REHABILITATION COUNSELLOR Temperature - - Respiratory Rate 12 04/27/2015 12:06 PM REHABILITATION COUNSELLOR Oxygen Saturation - - Inhaled Oxygen Concentration - - Weight 60 kg (132 lb 4.4 oz) 04/27/2015 12:06 PM REHABILITATION COUNSELLOR Height 166 cm (5' 5.35) 04/27/2015 12:06 PM REHABILITATION COUNSELLOR Body Mass Index 21.77 04/27/2015 12:06 PM REHABILITATION COUNSELLOR Body Mass Index Percentile 60.45 % 04/27/2015 12:[address] Growth Chart: CDC (Girls, 2-20 Years) documented in this encounter Discharge Summaries Nieves Rios R.N. - 04/27/2015 12:18 PM CST ED Discharge Instructions [facility] [address] [place] [address] Name: KERA FIGUEROA Date of : 2000 12:00 AM Visit Date: 04/27/2015 11:55 AM [facility] Number: [id number] Address: [address] [facility] [address] Primary Care Provider: PCP, GLORY IMPORTANT: [facility] in [place] would like to thank you for allowing us to assistyou with your healthcare needs. The following includes patient education materials and information regarding your injury/illness. Diagnosis: Otitis Media (OM) Acute R Follow-Up Instructions: With: Address: When: Follow up with primary care provider Within 2 weeks Comments: follow up to recheck right ear to ensure resolution of effusion behind ear. Today Tylenol 1000 mg alternating with ibuprofen 800 mg every 3 hours. Your Upcoming Appointments: Date Time Location Provider No Appointments found Patient Education Materials: Middle Ear Infection (Adult) You have an infection of the middle ear (the space behind the eardrum). It can occur as a result of the common cold. This is because congestion can block the internal passage (eustachian tube) that drains fluid from the middle ear. When the middle ear fills with fluid, bacteria can grow there and cause an infection. Oral antibiotics are used to treat this illness, not ear drops. Symptoms usually start to improve within 1-2 days of treatment. Home Care: ?? Finish all of the antibiotic medicine prescribed, even though you may feel better after the firstfew days. ?? You may use acetaminophen (Tylenol) or ibuprofen (Motrin, Advil) to control pain, unless something else was prescribed. [NOTE: If you have chronic liver or kidney disease or have ever had a stomach ulcer or GI bleeding, talk with your doctor before using these medicines.] (Do not give aspirin to anyone under 18 years of age who is ill with a fever. It may cause severe liver damage.) Follow Up with your doctor or this facility in two weeks if all symptoms have not cleared, or if hearing does not return to normal within one month. Get Prompt Medical Attention if any of the following occur: ?? Ear pain gets worse or does not improve after three days of treatment ?? Unusual drowsiness or confusion ?? Neck pain, stiff neck or headache ?? Fluid or blood draining from the ear canal ?? Fever of 100.4?F (38?C) or higher after 3 days of antibiotics, or as directed by your healthcare provider ?? Convulsion (seizure) ?? [phone] Pete Rahman, [address] [facility], [place] [id number]. All rights reserved. This information is not intended as a substitute for professional medical care. Always follow your healthcare professional's instructions. Consider Using Patient Online Services Patient Online Services is a secure online and Mobile application that lets you: ?? View lab and test results ?? View portions of your medical record including clinical notes, immunizations and discharge summaries ?? Request an appointment or medication refill ?? Review your appointment schedule ?? Send secure messages to your care team Its easy to create an account if you dont have one. Go to [email or web address] and click on Create Your Account. Then, follow the directions to complete the online form. Youll be asked for your [facility] number which you can find at the top of this document. ED Tests and Procedures: Order Status Discharge Prescriptions & Home Medications: Medication/Strength Dose Route Frequency Indications/Special Instructions/Comments/Notes azithromycin (Zithromax Z-Thomas 250 mg oral tablet) 2 tablets on day 1, then 1 tablet on days 2-5 Oralas directed for 5 Days calcium-vitamin D (Calcium 600+D 600 mg-200 intl units oral tablet) 1 tab(s) Oral once a day multivitamin (Multiple Vitamins oral tablet) 1 tab(s) Oral once a day Attention: If you have any medications at home not on this list, DO NOT take them until you contact your provider for clarification. Give a copy of your medication list to your primary care provider. Update your medication list any time medications or doses are changed and carry your medication list at all times in case of emergency. IMPORTANT: We examined and treated you today on an emergency basis only. This was not a substitute for, or an effort to provide, complete medical care. In most cases, you must let your doctor check youagain. Tell your doctor about any new or lasting problems. We cannot recognize and treat all injuries or illnesses in one Emergency Department visit. If you had special tests, such as EKG's or X- rays, we will review them again within 24 hours. We will call you if there are any new suggestions. Please follow the instructions above carefully. If you are being transferred to another facility, your follow up plan of care will be determined by the receiving facility. If you are a patient that is being discharged from the Emergency Department after receiving narcotics or other medications that may impair your judgment you may be a risk to yourself or others if you operate a motor vehicle. We recommend that you arrange a ride home with a responsible republican. CAROLINA Glass JESSICA MARIAH , or responsible republican have received this information and my questions have been answered. I have discussed any challenges I see with this plan with the nurse or physician. Patient Signature or Responsible Constitution Party/Relationship Date Time Provider Signature Date Time IMPORTANT: We examined and treated you today on an emergency basis only. This was not a substitute for, or an effort to provide, complete medical care. In most cases, you must let your doctor check youagain. Tell your doctor about any new or lasting problems. We cannot recognize and treat all injuries or illnesses in one Emergency Department visit. If you had special tests, such as EKG's or X- rays, we will review them again within 24 hours. We will call you if there are any new suggestions. Please follow the instructions above carefully. If you are being transferred to another facility, your follow up plan of care will be determined by the receiving facility. If you are a patient that is being discharged from the Emergency Department after receiving narcotics or other medications that may impair your judgment you may be a risk to yourself or others if you operate a motor vehicle. We recommend that you arrange a ride home with a responsible republican. CAROLINA Glass JESSICA MARIAH , or responsible republican have received this information and my questions have been answered. I have discussed any challenges I see with this plan with the nurse or physician. Patient Signature or Responsible Constitution Party/Relationship Date Time Provider Signature Date Time This document has images extracted. Please consider using opendorse for all your patient education needs. Source: CardioMind Document Id: [id number] BILITATION COUNSELLOR Nieves Rios R.N. - 04/27/2015 12:18 PM CST ED Depart Summary [facility] Emergency Department Clinical Discharge Summary PERSON INFORMATION Name KERA FIGUEROA Age 15 Years 2000 12:00 AM Sex Female Language Italian PCP PCP, ELSEWHERE Marital Status Single N [id number] [id number] Visit Reason Ear pain; Ear pain; ear pain Specialty Enc Type Emergency Med Service Emergency Medicine Referred by Track Group MAQN ED Discharge 04/27/2015 12:13 PM Tracking Id [id number] Checkout 04/27/2015 12:13 PM Checkin 04/27/2015 11:55 AM Acuity 5 -Non Urgent Dispo Type * Discharged to Home or Self Care Arrival 04/27/2015 11:55 AM Reg Status LOS 000 00:18 Address: [address] [place] [id number] Comment: PROVIDER INFORMATION Provider Role Provider Contact Time DENTON GANDHI MD ED Provider 04/27/15 12:05 NIEVES RIOS ENTHONE SOLDER STRIPPER Nurse 04/27/15 12:11 DIAGNOSIS Otitis Media (OM) Acute R Comment: PATIENT EDUCATION INFORMATION Instructions: OTITIS MEDIA, Abx Tx (Adult) Follow up: With: Address: When: Follow up with primary care provider Within 2 weeks Comments: follow up to recheck right ear to ensure resolution of effusion behind ear. Today Tylenol 1000 mg alternating with ibuprofen 800 mg every 3 hours. Source: CardioMind Document Id: [id number] BILITATION COUNSELLOR documented in this encounter ED Notes Nieves Rios R.N. - 04/27/2015 12:17 PM CST ED Disposition Summary ED Disposition Summary Entered On: 04/27/2015 12:17 REHABILITATION COUNSELLOR Performed On: 04/27/2015 12:17 REHABILITATION COUNSELLOR by NIEVES RIOS EN[employer]ONE SOLDER STRIPPER Disposition Summary Accompanied By : Mother Mode of Discharge : Ambulatory Transportation : Private vehicle Printed Discharge Instructions Given to Patient : Yes Patient Status at Discharge from ED : Unchanged NIEVES RIOS RN - 04/27/2015 12:17 REHABILITATION COUNSELLOR Source: [employer]ioMind Document Id: [id number] REHABILITATION COUNSELLOR!7 BILITATION COUNSELLOR Denton Gandhi M.D. - 04/27/2015 12:06 PM CST Ear pain Patient: KERA FIGUEROA Age: 15 years Sex: Female : 2000 Author: DENTON GANDHI MD Attachments: None Associated Diagnosis: Otitis Media (OM) Acute R Basic Information Time seen: Immediately upon arrival. History source: Patient. Arrival mode: Private vehicle. History limitation: None. History of Present Illness The patient presents with ear pain and right sinus maxillary tenderness x 2 weeks. The course/duration of symptoms is worsening. The character of symptoms is pain. The exacerbating factor is none. The relieving factor is none. Risk factors consist of none. Prior episodes: none. Therapy today: none. Associated symptoms: rhinorrhea. Review of Systems Constitutional symptoms: Negative except as documented in HPI. Skin symptoms: Negative except as documented in HPI, but no rash. Eye symptoms: Negative except as documented in HPI. ENMT symptoms: Negative except as documented in HPI. Respiratory symptoms: Negative except as documented in HPI. Additional review of systems information: All other systems reviewed and otherwise negative. Health Status Allergies: Allergic Reactions (Selected) Severe Amoxicillin- Gi issues.. Past Medical/ Family/ Social History Medical history: No active or resolved past medical history items have been selected or recorded.. Surgical history: No active procedure history items have been selected or recorded.. Family history: No family history items have been selected or recorded.. Physical Examination Vital Signs: Vital Signs 04/27/2015 12:06 REHABILITATION COUNSELLOR Temperature Core 37.1 DegC Peripheral Pulse Rate 67 /min Respiratory Rate 12 /min LOW SpO2 95 % Systolic Blood Pressure 128 mmHg Diastolic Blood Pressure 71 mmHg Mean Arterial Pressure 90 mmHg . General: Alert and moderate distress. Skin: Warm and moist. Head: Normocephalic. Neck: Supple. Eye: Pupils are equal, round and reactive to light and vision grossly normal. Ears, nose, mouth and throat: right TM with effusion and erythema and right maxillary sinus tenderness. Respiratory: Lungs are clear to auscultation. Lymphatics: No lymphadenopathy. Impression and Plan Diagnosis Otitis Media (OM) Acute R (Discharge, Emergency medicine, Medical) maxillary sinusitis right Plan Condition: Stable. Disposition: Discharged: Time 04/27/2015 12:07:00, to home. Prescriptions: Prescription [facility]: Zithromax Z-Thomas 250 mg oral tablet (Prescribe): 2 tablets on day 1, then 1 tablet on days 2-5, PO, As Directed, for 5 day(s), 6 tab(s), 0 Refill(s). Patient was given the following educational materials: OTITIS MEDIA, Abx Tx (Adult). Follow up with: ; Follow up with primary care provider Within 2 weeks follow up to recheck right earto ensure resolution of effusion behind ear. Today Tylenol 1000 mg alternating with ibuprofen 800 mgevery 3 hours.. Counseled: Patient, Family, Regarding diagnosis, Regarding treatment plan, Regarding prescription, Patient indicated understanding of instructions. Orders: Launch Orders Patient Care: Discharge ED Patient (Order Processing): 04/27/2015 12:10 REHABILITATION COUNSELLOR, Once. Electronically Signed By: DENTON GANDHI MD On: 04/27/2015 12:13 PM Modified by and Electronically Signed by: DENTON GANDHI MD On: 04/27/2015 12:13 PM Source: [facility] POWERCHART Document Id: [id number]} BILITATION COUNSELLOR Nieves Rios R.N. - 04/27/2015 12:06 PM CST ED Primary Assessment Document Has Been Updated ED Primary Assessment Entered On: 04/27/2015 12:11 REHABILITATION COUNSELLOR Performed On: 04/27/2015 12:06 REHABILITATION COUNSELLOR by NIEVES RIOS RN Reason For Visit (As Of: 04/27/2015 12:11:19 REHABILITATION COUNSELLOR) Diagnoses(Active) Ear pain Date: 04/27/2015 ; Diagnosis Type: Reason For Visit ; Confirmation: Complaint of ; ClinicalDx: Ear pain ; Classification: Medical ; Clinical Service: Emergency medicine ; Code: PNED ; Probability: 0 ; Diagnosis Code: [id number] Ear pain Date: 04/27/2015 ; Diagnosis Type: Reason For Visit ; Confirmation: Confirmed ; Clinical Dx: Ear pain ; Classification: Medical ; Clinical Service: Emergency medicine ; Code: PNED ; Probability: 0 ; Diagnosis Code: [id number] Otitis Media (OM) Acute R Date: 04/27/2015 ; Diagnosis Type: Discharge ; Confirmation: Confirmed ; Clinical Dx: Otitis Media (OM) Acute R ; Classification: Medical ; Clinical Service: Emergency medicine ; Code: ICD-10-CM ; Probability: 0 ; Diagnosis Code: H66.91 Triage Chief Complaint Description : Pt presents for eval of ear pain. States that she has had a cold for the last week or so and her ear started hurting and it traveled into her face. Information Given By : Patient, Mother Accompanied By : Mother Mode of Arrival ED : Private vehicle Track : Medical Languages : Italian Vital Signs Assessed : Yes Treatments Prior to Arrival : None Are you ? : No Is Patient Female and 13-50 no hysterectomy : Yes Status : Patient denies NIEVES RIOS RN - 04/27/2015 12:06 REHABILITATION COUNSELLOR Vital Signs Temperature Core : 37.1 DegC(Converted to: 98.8 DegF) Peripheral Pulse Rate : 67 /min Respiratory Rate : 12 /min (LOW) Systolic Blood Pressure : 128 mmHg Diastolic Blood Pressure : 71 mmHg NIBP Mean : 90 mmHg SpO2 : 95 % Oxygen Therapy : Room air Height : 166 cm(Converted to: 5 ft 5 inch(es)) Actual Weight : 60 kg Actual Weight Conversion to Pounds : 132 lb Body Mass Index : 21.77 kg/m2 NIEVES RIOS RN - 04/27/2015 12:06 REHABILITATION COUNSELLOR Pain Assessment Pain Symptoms : Yes NIEVES RIOS RN - 04/27/2015 12:06 REHABILITATION COUNSELLOR Pain Scale Pain Scale Verbal 0-10 : Open NIEVES RIOS RN - 04/27/2015 12:06 REHABILITATION COUNSELLOR Pain Pain Assessment Grid Pain 1 Location : Ear Laterality : Right Intensity : 5 NIEVES RIOS RN - 04/27/2015 12:06 REHABILITATION COUNSELLOR PADILLA PADILLA Level 1 : No PADILLA Level 2 : No PADILLA Level 3 : None NIEVES RIOS RN - 04/27/2015 12:06 REHABILITATION COUNSELLOR DCP GENERIC CODE Tracking Acuity : 5 -Non Urgent Tracking Group : MAQN ED NIEVES RIOS - 04/27/2015 12:06 REHABILITATION COUNSELLOR Allergy (As Of: 04/27/2015 12:11:19 REHABILITATION COUNSELLOR) Allergies (Active) amoxicillin Estimated Onset Date: Unspecified ; Reactions: gi issues ; Created By: MARGARITA COLEMAN; Reaction Status: Active ; Category: Drug ; Substance: amoxicillin ; Type: Allergy ; Severity: Severe ;Updated By: MARGARITA COLEMAN; Reviewed Date: 04/27/2015 12:10 REHABILITATION COUNSELLOR ID Screen Drug Resistant Organism : No Travel Within Last 21 Days : No Contact with someone with Ebola : No NIEVES RIOS RN - 04/27/2015 12:06 REHABILITATION COUNSELLOR TB Symptoms Grid Bloody Sputum : No Fatigue : No Fever : No Loss of Appetite : No Night Sweats : No Persistent Cough Greater Than 3 Weeks : No Weight Loss : No NIEVES RIOS RN - 04/27/2015 12:06 REHABILITATION COUNSELLOR Immunizations Immunizations Current : Yes Influenza : None NIEVES RIOS RN 04/27/2015 12:06 REHABILITATION COUNSELLOR Respiratory Airway : Patent Respirations : Unlabored Respiratory Pattern : Regular NIEVES RIOS RN - 04/27/2015 12:06 REHABILITATION COUNSELLOR Cardiovascular Heart Rhythm : Regular Skin Color : Minor Skin Description : Normal Skin Temperature : Warm NIEVES RIOS RN 04/27/2015 12:06 REHABILITATION COUNSELLOR Neurological Last Well Time Known : Not applicable Level of Consciousness : Alert Orientation : Oriented x 3 Characteristics of Speech : Appropriate for age NIEVES RIOS RN - 04/27/2015 12:06 REHABILITATION COUNSELLOR ED Psychosocial Affect/Behavior : Calm, Cooperative, Appropriate Domestic Abuse Concerns : None Behavioral Health Screen/Safety Assmt : NIEVES Saldana RN - 04/27/2015 12:06 REHABILITATION COUNSELLOR Gastrointestinal Nutrition ED : NIEVES Emery RN - 04/27/2015 12:06 REHABILITATION COUNSELLOR Musculoskeletal Fall Prevention Education Provided : NIEVES MONREAL RN - 04/27/2015 12:06 REHABILITATION COUNSELLOR Social Habits Exposure to Tobacco Smoke : Care provider denies smoking in home Smoking Status : Never smoker Tobacco 2A : NIEVES Saldana RN - 04/27/2015 12:06 REHABILITATION COUNSELLOR Alcohol Use Grid Alcohol Use : NIEVES Saldana RN - 04/27/2015 12:06 REHABILITATION COUNSELLOR Recreational Drug Use Grid Drug Use : None NIEVES RIOS RN - 04/27/2015 12:06 REHABILITATION COUNSELLOR Source: [facility] Shareholder InSite Document Id: [id number] REHABILITATION COUNSELLOR!90 BILITATION COUNSELLOR documented in this encounter Miscellaneous Notes Miscellaneous - Nieves Rios RJenni - 04/27/2015 12:17 PM CST Valuables/Belongings Valuables/Belongings Entered On: 04/27/2015 12:17 REHABILITATION COUNSELLOR Performed On: 04/27/2015 12:17 REHABILITATION COUNSELLOR by NIEVES RIOS RN Valuables/Belongings Belongings Sent Home With : patient NIEVES RIOS RN - 04/27/2015 12:17 REHABILITATION COUNSELLOR Source: [facility] Shareholder InSite Document Id: [id number] REHABILITATION COUNSELLOR!3 BILITATION COUNSELLOR Miscellaneous - Conversion, Historical Provider Ser - 04/27/2015 12:13 PM REHABILITATION COUNSELLOR Coding Summary-Paper Based CODING DATE: 05/11/2015 FINAL [facility] STATUS: * Discharged to Home or Self Care PAYOR: Commercial Insurance ADMIT DX: H92.01 Otalgia, right ear REASON FOR VISIT DX: H92.01 Otalgia, right ear FINAL DX: PRINCIPAL: H66.91 Otitis media, unspecified, right ear SECONDARY: J32.0 Chronic maxillary sinusitis Z88.1 Allergy status to other antibiotic agents status PROCEDURES DOCTOR NAME DATE NOTE: The code number assigned matches the documented diagnosis and / or procedure in the patient's chart. However, the narrative phrase printed from the coding software may appear abbreviated, or result in slightly different terminology. Coded By: KARL SINCLAIR Date Saved: 05/11/2015 09:40 am Source: [employer]ioMind Document Id: [id number] Miscellaneous - Nieves Rios, R.N. - 04/27/2015 11:55 AM CST Facility Charge Ticket 2.0 11.0 DX Facility Charge Ticket 2.0 11.0 DX Entered On: 04/27/2015 12:17 REHABILITATION COUNSELLOR Performed On: 04/27/2015 11:55 REHABILITATION COUNSELLOR by NIEVES RIOS RN Facility Charge Ticket 2.0 11.0 DX ED Other Charges : Standard ED Encounter TVL Level Translated RTF : Ear pain, Ear pain TVL:2 TVL Level for Facility Charge Ticket : Level 2 Arrival Mode Calc : 1 Mode of Arrival ED : Private vehicle [place] Mode of Arrival Interpreted : Standard [place] Process Management : None [place] Order Management : None 30 Minutes Critical Care : No Nursing Notes RTF : Nursing Notes ED Primary Assessment,04/27/15 12:06GABRIEL KARISSA A RN [place] Nursing Assessment : Triage only [place] Disposition : Discharge Disposition RTF : discharge [place] Total Points with Diagnosis Control : 3 [place]x Visit Level : 42267 Level 2 Treatments Prior to Arrival : None NIEVES RIOS RN - 04/27/2015 12:17 REHABILITATION COUNSELLOR Source: [employer]ioMind Document Id: [id number] REHABILITATION COUNSELLOR!18 BILITATION COUNSELLOR documented in this encounter Plan of Treatment Not on filedocumented as of this encounter Visit Diagnoses Not on filedocumented in this encounter
--- OUTSIDE RECORDS SUMMARY | 2022-01-21 09:09 | XMS_ITS | Encounter Summary ---
:2000 Author Organization [facility] Address [address] [place] [address] Care Team Providers Name Role Phone Unavailable Primary Care Provider Unavailable Encounter Details Date Type Department Care Team Description 08/30/2020 Orders Only [facility] PCP [facility] Dewey Magallon Jr., M.D. [address] [place] [address] Corona Sanchez MD [phone] (Wo rk) Social History Tobacco Use Types Packs/Day Years Used Date Smoking Tobacco: Never Sex Assigned at Date Recorded Not on file documented as of this encounter Plan of Treatment Not on filedocumented as of this encounter Visit Diagnoses Not on filedocumented in this encounter
--- OUTSIDE RECORDS SUMMARY | 2022-01-21 09:09 | XMS_ITS | Encounter Summary ---
:2000 [facility] Address [address], [place] [address] Care Team Providers Name Role Phone Unassigned, Provider Primary Care Provider Unavailable Reason for Visit Reason Comments REFERRAL VISIT CANCELLATION FOR Encounter Details Date Type Department Care Team Description 03/06/[address] [facility] Steve Sanches, REF ERRAL VISIT [facility] Darlene Wesley MD (CANCELLATION FOR [address] [facility], [address] [facility] 03/31) [address] [place] [phone] Social History Tobacco Use Types Packs/Day Years Used Date Smoking Tobacco: Never Assessed Sex Assigned at Date Recorded Not on file documented as of this encounter Nursing Notes Jdoy Cobian - 03/06/2017 1:21 PM CDT CANCELLATION ON 03/31 NO LONGER AVAILABLE. Jody Cobian 03/06/2017, 1:21 PM Jody Cobian - 03/06/2017 1:01 PM CDT Spoke with patient, she will call back to schedule. Cancellation available for 03/31 9AM Jody Cobian 03/06/2017, 1:01 PM documented in this encounter Plan of Treatment Not on filedocumented as of this encounter Visit Diagnoses Not on filedocumented in this encounter Care Teams Gantry Crane Operator Relationship Specialty Start Date End Date Unassigned, Provider PCP - General 01/28/00 03/09/17 [address] [place] [address] documented as of this encounter
--- OUTSIDE RECORDS SUMMARY | 2022-01-21 09:09 | XMS_ITS | Encounter Summary ---
:2000 Author Organization [facility] Address [address] [place] [address] Care Team Providers Name Role Phone Unavailable Primary Care Provider Unavailable Encounter Details Date Type Department Care Team Description 04/10/2013 Hospital Encounter HX [facility] NMZURDO EXPElisabet Skelton P.A.-C., COREY Social History Tobacco Use Types Packs/Day Years Used Date Smoking Tobacco: Never Assessed Sex Assigned at Date Recorded Not on file documented as of this encounter Last Filed Vital Signs Vital Sign Reading Time Taken Comments Blood Pressure - - Pulse 71 04/10/2013 10:23 AM STATUE MAKER Temperature - - Respiratory Rate - - Oxygen Saturation - - Inhaled Oxygen Concentration - - Weight 58.4 kg (128 lb 12 oz) 04/10/2013 10:23 AM STATUE MAKER Height - - Body Mass Index - - documented in this encounter Progress Notes Shaunna Gregory P.A.-C. - 04/10/2013 10:15 AM CST [id number] This is [facility]. CHIEF COMPLAINT/REASON FOR VISIT Cough. HISTORY OF PRESENT ILLNESS Nasal congestion, runny nose, cough, sore throat and headache for the past 4 days. She coughed so hard she threw up once, otherwise has been taking fluids well. She rates her pain at a 5 on a 1 to 10 scale. She is a never smoker. There has been no ear pain, and she has been taking food and fluids well. She has not been sleeping due to coughing continuously at night. HISTORY OF PRESENT ILLNESS Medication and allergies, review documentation in [employer]. REVIEW OF SYSTEMS CONSTITUTIONAL: Remarkable for fever off and on and fatigue. No body aches. ENT: Nasal congestion, runny nose and sore throat. RESPIRATORY: She does have a persistent cough particularly at night. SKIN: No rashes. GI: He had one posttussive emesis. Otherwise has been taking food and fluids well. NEURO: She has had a headache off and on as well. Rapid strep test is negative. Culture is pending. PAST MEDICAL/SURGICAL HISTORY She is generally healthy. PHYSICAL EXAMINATION PSYCH: Alert and oriented. No acute distress. ENT: EARS: TMs pearly levin. Nose has clear nasal drainage and nasal congestion. THROAT: There is erythema at the posterior pharynx and bilateral anterior cervical lymphadenopathy is present. LUNGS: Lungs are clear to auscultation. HEART: Regular rate and rhythm. ABDOMEN: Soft and nontender. NECK: Neck is supple. SKIN: [place], warm and dry. IMPRESSION/REPORT/PLAN Pharyngitis, non-strep. Upper respiratory infection with cough. PLAN:. She is to get plenty of rest and fluids, humidity to the sinuses. She is to take DayQuil during the day and then the Robitussin AC 10mL by mouth every 4- 6 hours as needed at night. She is warnedof drowsiness. She can continue with her topical throat spray, which is helpful. They are to follow up for any further concerns. I would expect that her temperature would normalize over the next 2 days. Mother and daughter are in agreement with this plan. Marco Antoine/russ Electronically Signed By: SHAUNNA GREGORY PA-C On: 04/10/2013 12:19 PM Source: [facility] MHSDOLBEYNONRADSYS Document Id: [id number] UE MAKER documented in this encounter Procedure Notes Conversion, Historical Provider Ser - 04/10/2013 10:34 AM CST Rapid Strep A Screen POC Rapid Strep A Screen POC Entered On: 04/10/2013 10:38 STATUE MAKER Performed On: 04/10/2013 10:34 STATUE MAKER by MARGARITA COLEMAN Rapid Strep A Screen POC Rapid Strep A Screen POC : Negative Internal QC : Pass Rapid Strep Device Lot Number : [id number] Rapid Strep Device Expiration Date : 12/31/2013 CDT MARGARITA COLEMAN - 04/10/2013 10:34 STATUE MAKER Source: [facility] POWERCHART Document Id: [id number] STATUE MAKER!6 documented in this encounter Miscellaneous Notes Miscellaneous - Shaunna Gregory P.A.-C. - 04/10/2013 10:46 AM CST Ambulatory Patient Summary Express Care - [address] [address] Visit Information Name: KERA FIGUEROA [facility] Number: [id number] Current Date: 04/10/2013 10:46:15 Physicians Attending Provider: SHAUNNA GREGORY PA-C Primary Care Provider: KERA FIGUEROA has been given the following list of follow-up instructions, medication list, and patient education materials: Follow-up Instructions Your Medications Here is a list of your medications. It is important to take your medications as directed. Use a pillbox or chart to help remind you to take your medications. Please let your doctor or nurse know if you have problems taking your medications. Medication/Strength How to Take Indications/Special Instructions/Comments/Notes for Patient Medication Changes/Routing calcium-vitamin D (Calcium 600+D 600 mg-200 intl units oral tablet) 1 Tablet(s), Oral, once a day codeine-guaiFENesin (Robitussin-AC 10 mg-100 mg/5 mL oral syrup) 10 Milliliter, Oral, every 4 hours as needed for cough x 7 day(s) New Routed to Printer multivitamin (Multiple Vitamins oral tablet) 1 Tablet(s), Oral, once a day Stop Taking the Following Medications: Medication list as of 04-10-13 10:46 Attention: If you have any medications at home that are not on this list, DO NOT take them until youcontact your provider for clarification. Give a copy of your medication list to your primary care provider. Update your medication list any time medications or doses are changed and carry your medication list at all times in case of emergency. Your Allergies & Intolerances Substance Reaction Symptoms Category Comments amoxicillin gi issues Drug Your Problem List Problem Status Onset Comments No Problems found Your Upcoming Appointments Date Time Location Reason Provider No Appointments found Attention: Contact your local Clinic if further appointment detail needed. Your Goals/Additional instructions: Source: [employer] POWERCHART Document Id: [id number] UE MAKER Miscellaneous - Shaunna Gregory P.A.-C. - 04/10/2013 10:46 AM CST Ambulatory Depart Summary Express Care - [address] [address] Visit Information Name: CAROLINA KERA Mandel [facility] Number: [id number] Visit Date: 04/10/2013 10:46:14 Attending Provider: SHAUNNA GREGORY PA-C Primary Care Provider: KERA FIGUEROA has been given the following list of medications: Your Medications It is important to take your medications as directed. Use a pill box or chart to help remind you to take your medications. Please let your doctor or nurse know if you have problems taking your medications. Medication/Strength How to Take Indications/Special Instructions/Comments/Notes for Patient Medication Changes/Routing calcium-vitamin D (Calcium 600+D 600 mg-200 intl units oral tablet) 1 Tablet(s), Oral, once a day codeine-guaiFENesin (Robitussin-AC 10 mg-100 mg/5 mL oral syrup) 10 Milliliter, Oral, every 4 hours as needed for cough x 7 day(s) New Routed to Printer multivitamin (Multiple Vitamins oral tablet) 1 Tablet(s), Oral, once a day Stop Taking the Following Medications: Medication list as of 04-10-13 10:46 Attention: If you have any medications at home that are not on this list, DO NOT take them until youcontact your provider for clarification. Give a copy of your medication list to your primary care provider. Update your medication list any time medications or doses are changed and carry your medication list at all times in case of emergency. Additional Information: [facility] Document Id: [id number] UE MAKER Miscellaneous - Conversion, Historical Provider Ser - 04/10/2013 10:23 AM STATUE MAKER Pediatric Lead Installer Intake/History Pediatric Lead Installer Intake/History Entered On: 04/10/2013 10:29 STATUE MAKER Performed On: 04/10/2013 10:23 STATUE MAKER by MARGARITA COLEMAN Intake Chief Complaint : Runny nose for 4 days coughs when breathing hurts to cough threw up thursday throat headache Temperature Core : 37 DegC(Converted to: 98.6 DegF) Peripheral Pulse Rate : 71 /min SpO2 : 98 % Actual Weight : 58.4 kg(Converted to: 128 lb 12 oz) Dosing Weight Clinic : 58.4 kg MARGARITA COLEMAN - 04/10/2013 10:23 STATUE MAKER General Info Languages : Serbian MARGARITA COLEMAN - 04/10/2013 10:23 STATUE MAKER Subjective Pain Symptoms : Yes MARGARITA COLEMAN - 04/10/2013 10:23 STATUE MAKER Pain Pain Assessment Grid Pain 1 Pain 2 Location : Throat Laterality : Bilateral Intensity : 5 MARGARITA COLEMAN - 04/10/2013 10:23 STATUE MAKER MARGARITA COLEMAN - 04/10/2013 10:23 STATUE MAKER Dependent Habits Tobacco Use/Currently Using : No Smoking Status : Never smoker MARGARITA COLEMAN - 04/10/2013 10:23 STATUE MAKER Recreational Drug Use Grid Drug Use : None MARGARITA COLEMAN - 04/10/2013 10:23 STATUE MAKER Source: [facility] POWERCHART Document Id: [id number] STATUE MAKER!25 documented in this encounter Plan of Treatment Not on filedocumented as of this encounter Procedures Procedure Name Priority Date/Time Associated Diagnosis Comme nts RAPID STREP A Routine 04/10/2013 10:38 AM Results for this SCREEN STATUE MAKER procedure are i n the results section. documented in this encounter Results Rapid Strep A Screen (04/10/2013 10:38 AM STATUE MAKER) [facility] Method Time Signature HXRapid Strep POWERCHART Confirmation HXPre Negative for POWERCHART Group A Strep by culture. HXFinal Negative for POWERCHART Group A Strep by culture. Specimen (Source) Anatomical Collection Method Collection Time Re ceived Time Location / / Volume Laterality Throat 04/10/2013 10:38 AM STATUE MAKER Historical Provider LAB MICROBIOLOGY - GENERAL O RDERABLES Performing Organization Address City/State/ZIP Code Phon e Number POWERCHART documented in this encounter Visit Diagnoses Not on filedocumented in this encounter
--- OUTSIDE RECORDS SUMMARY | 2022-01-21 09:09 | XMS_ITS | Encounter Summary ---
:2000 Author Organization [facility] Address [address] [place] [address] Care Team Providers Name Role Phone Unavailable Primary Care Provider Unavailable Encounter Details Date Type Department Care Team Description 07/28/2012 Hospital Encounter HX [facility] Elisabet Mark, P.A.-C., [place] Social History Tobacco Use Types Packs/Day Years Used Date Smoking Tobacco: Never Assessed Sex Assigned at Date Recorded Not on file documented as of this encounter Plan of Treatment Not on filedocumented as of this encounter Visit Diagnoses Not on filedocumented in this encounter
--- OUTSIDE RECORDS SUMMARY | 2022-01-21 09:09 | XMS_ITS | Encounter Summary ---
:2000 Author Organization [facility] Address [address] [place] [address] Care Team Providers Name Role Phone Unavailable Primary Care Provider Unavailable Encounter Details Date Type Department Care Team Description 05/20/2012 - Hospital Encounter HX [facility] LILIANA PT Clay Villalpando, 05/27/[address] [place], [place] [address] (Wo rk) Social History Tobacco Use Types Packs/Day Years Used Date Smoking Tobacco: Never Assessed Sex Assigned at Date Recorded Not on file documented as of this encounter Plan of Treatment Not on filedocumented as of this encounter Visit Diagnoses Not on filedocumented in this encounter
--- OUTSIDE RECORDS SUMMARY | 2022-01-21 09:09 | XMS_ITS | Encounter Summary ---
:2000 Author Organization [facility] Address [address] [place] [address] Care Team Providers Name Role Phone Unavailable Primary Care Provider Unavailable Reason for Visit Reason Onset Date Comments Outpatient COVID-19 Testing 03/08/2020 Encounter Details Date Type Department Care Team Description 03/08/2020 External Outreach [facility] ([place], [place] C.N.P., D.N.P. Dx) [address] [facility] [address] [place] [address] [place], [place] [phone] Social History Tobacco Use Types Packs/Day Years Used Date Smoking Tobacco: Never Sex Assigned at Date Recorded Not on file documented as of this encounter Progress Notes Keily Boss RNanyN. - 03/08/2020 9:57 AM CST Encounter created for the drive-through COVID-19 testing. 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 documented in this encounter Results SARS Coronavirus-2 RNA, V Symptomatic (03/08/2020 1:34 PM H[employer] TE[employer]ER) [facility] Method Time Signature SARS-CoV-2 Swab, 03/09/2020 [facility] Specimen Nasopharynx 1:30 PM [employer]ER Source SARS CoV-2 Undetected Undetected 03/09/2020 [place] RNA, TMA 1:30 PM H[employer] TE[employer]ER Comment: SARS-CoV-2 RNA absent. This result does not rule out COVID-19 in the patient, as the sensitivity of the test depends o n the timing of the specimen collection and the quality of the specim en. Result should be correlated with patient's history and clinical presentat ion. ----ADDITIONAL INFORMATION---- This test is performed using the Aptima SARS-CoV-2 assay ([employer] which has received Emergency Use Authori zation (EUA) by the U.S. Food and Drug Administration. Fact sheets for this Emergency Use Autho rization (EUA) assay can be found at the following links: For Healthcare Providers: https://www.Seeonic a.gov/media/398817/download For Patients: https://www.fda.gov/media/ 926666/download Specimen Anatomical Collection Method Collection Time Receive d Time (Source) Location / / Volume Laterality Varies 03/08/2020 1:34 PM 0 5:41 (Nasopharynx) [employer]ER PM [employer]ATION TE[employer]ER Maryjane Plummer APRN.N.P., D.N.P. LAB MICROBIOLOGY - GENERAL ORDERABLES Performing Organization Address City/State/[facility] Code Phon e Number [facility]- [address] [place] [address] [place] [address] [address] documented in this encounter Visit Diagnoses Diagnosis Infection Upper Respiratory - Primary documented in this encounter Additional Health Concerns Infection Onset Date Last Indicated Resolved Time COVID19 Pending 03/08/2020 03/08/2020 03/09/2020 1:30 PM HIGH [employer]ER documented as of this encounter
--- OUTSIDE RECORDS SUMMARY | 2022-01-21 09:09 | XMS_ITS | Encounter Summary ---
:2000 Author Organization [facility] Address [address] [place] [address] Care Team Providers Name Role Phone Unavailable Primary Care Provider Unavailable Encounter Details Date Type Department Care Team Description 07/28/2012 Hospital Encounter HX [facility] ED Vitaly Munroe M.D. Social History Tobacco Use Types Packs/Day Years Used Date Smoking Tobacco: Never Assessed Sex Assigned at Date Recorded Not on file documented as of this encounter Last Filed Vital Signs Vital Sign Reading Time Taken Comments Blood Pressure 117/58 07/28/2012 5:51 PM CDT Pulse 84 07/28/2012 5:51 PM CDT Temperature - - Respiratory Rate 16 07/28/2012 5:51 PM CDT Oxygen Saturation - - Inhaled Oxygen Concentration - - Weight - - Height - - Body Mass Index - - documented in this encounter Discharge Summaries Karon Smith R.N. - 07/28/2012 7:10 PM CDT ED Depart Summary [address] [address] Name: KERA FIGUEROA Date of : 2000 12:00 AM Visit Date: 07/28/2012 5:48 PM [facility] Number: [id number] Address: [address] [facility] [facility] [address] Primary Care Provider: IMPORTANT: [facility] in [place] would like to thank you for allowing us to assistyou with your healthcare needs. The following includes patient education materials and information regarding your injury/illness. Chief Complaint: Finger injury - Minor; SWOLLEN LITTLE FINGER ON RIGHT HAND Follow-Up Instructions: With: Address: When: Follow up with primary care provider Within 5 - 7 days Comments: Patient Education Materials: [id number] FRACTURE:FINGER [closed] You have a fracture of your finger (broken finger). This causes local pain, swelling and bruising. This injury takes about four weeks to heal. Finger injuries are often treated with a splint, cast or by taping the injured finger to the next one (sarah taping). This protects the injured finger and holds the bone in position while it heals. More serious fractures may require surgery. If the FINGERNAIL has been severely injured, it will probably fall off in 1-2 weeks. A new fingernail will usually start to grow back within a month. You have just a chip fracture HOME CARE: 1) Keep your hand elevated to reduce pain and swelling. When sitting or lying down elevate your arm above the level of your heart. You can do this by placing your arm on a pillow that rests on your chest or on a pillow at your side. This is most important during the first 48 hours after injury. 2) Apply an ice pack (ice cubes in a plastic bag, wrapped in a towel) over the injured area for 20 minutes every 1-2 hours the first day for pain relief. Continue this 3-4 times a day until the pain and swelling goes away. 3) Keep the cast/splint completely dry at all times. Bathe with your cast/splint out of the water, protected with a large plastic bag, rubber-banded at the top end. If a fiberglass cast/splint gets wet, you can dry it with a hair-dryer. 4) If sarah tape was applied and it becomes wet or dirty, change it. You may replace it with paper, plastic or cloth tape. Cloth tape and paper tapes must be kept dry. Keep the sarah tape in place for at least four weeks. 5) You may use acetaminophen (Tylenol) or ibuprofen (Motrin, Advil) to control pain, unless another pain medicine was prescribed. [ NOTE : If you have chronic liver or kidney disease or ever had a stomach ulcer or GI bleeding, talk with your doctor before using these medicines.] FOLLOW UP with your doctor within one week, or as advised by our staff, to be sure the bone is healing properly, . [NOTE: A radiologist will review any X-rays that were taken. We will notify you of any new findings that may affect your care.] GET PROMPT MEDICAL ATTENTION if any of the following occur: -- The plaster cast or splint becomes wet or soft -- The fiberglass cast or splint remains wet for more than 24 hours -- Pain or swelling increases -- Redness, warmth, swelling, drainage from the wound or foul odor from a cast or splint -- Finger becomes more cold, blue, numb or tingly ?? [id number] [employer], [address] [place] [address]. All rights reserved. This information is not intended as a substitute for professional medical care. Always follow your healthcare professional's instructions. ED Tests and Procedures: Order Status XR Finger Little Right Completed Discharge Prescriptions & Home Medications: Medication/Strength Dose Route Frequency Indications/Special Instructions/Comments calcium-vitamin D (Calcium 600+D 600 mg-200 intl units oral tablet) 1 tab(s) Oral once a day multivitamin (Multiple Vitamins oral tablet) 1 tab(s) Oral once a day Attention: If you have any medications at home not on this list, DO NOT take them until you contact your provider for clarification. Medication Reconciliation: Reconciliation is a process of identifying the most accurate list of all medications a patient is taking - including name, dosage, frequency, and route - and using this list to provide to the patient information about how to take those medications. KERA FIGUEROA or designee has reviewed the home medications you have listed with us. Review the following instructions: You have NOT received any prescriptions and you have told us you are not currently taking any home medications You have NOT received any prescriptions. You have been provided a discharge medications list and you may CONTINUE taking your medications as previously prescribed by your regular providers. You have received the listed prescriptions and BEGIN all listed prescriptions as directed. Since you have listed no home medications, please check with your family doctor if you are taking any other medications. You have received the listed prescriptions and BEGIN all listed prescriptions as directed. Youhave been provided a discharge medications list and you may CONTINUE all home medications as previously prescribed by your regular providers. You have received the listed prescriptions and BEGIN all listed prescriptions as directed. Youhave been provided a discharge medications list. The following CHANGES have been made to your medication list; Otherwise, CONTINUE all home medications as previously prescribed by your regular provider. IMPORTANT: We examined and treated you today [...] arrange a ride home with a responsible democrat. ICAROLINA JESSICA M , or responsible democrat have received this information and my questions have been answered. I have discussed any challenges I see with this plan with the nurse or physician. Patient Signature or Responsible Constitution Party/Relationship Date Time Provider Signature Date Time Medication Reconciliation: Reconciliation is a process of identifying the most accurate list of all medications a patient is taking - including name, dosage, frequency, and route - and using this list to provide to the patient information about how to take those medications. KERA FIGUEROA or designee has reviewed the home medications you have listed with us. Review the following instructions: You have NOT received any prescriptions and you have told us you are not currently taking any home medications You have NOT received any prescriptions. You have been provided a discharge medications list and you may CONTINUE taking your medications as previously prescribed by your regular providers. You have received the listed prescriptions and BEGIN all listed prescriptions as directed. Since you have listed no home medications, please check with your family doctor if you are taking any other medications. You have received the listed prescriptions and BEGIN all listed prescriptions as directed. Youhave been provided a discharge medications list and you may CONTINUE all home medications as previously prescribed by your regular providers. You have received the listed prescriptions and BEGIN all listed prescriptions as directed. Youhave been provided a discharge medications list. The following CHANGES have been made to your medication list; Otherwise, CONTINUE all home medications as previously prescribed by your regular provider. IMPORTANT: We examined and treated you today [...] arrange a ride home with a responsible democrat. CAROLINA Glass JESSICA M , or responsible democrat have received this information and my questions have been answered. I have discussed any challenges I see with this plan with the nurse or physician. Patient Signature or Responsible Constitution Party/Relationship Date Time Provider Signature Date Time This document has images extracted. Please consider using [employer] for all your patient education needs. Source: [facility] [employer] Document Id: [id number] Karon Smith R.N. - 07/28/2012 7:10 PM CDT ED Discharge Instructions [facility] Emergency Department Clinical Discharge Summary PERSON INFORMATION Name KERA FIGUEROA Age 12 Years 2000 12:00 AM Sex Female Language Greenlandic PCP Marital Status Single Visit Id Visit Reason Finger injury - Minor; SWOLLEN LITTLE FINGER ON RIGHT HAND Specialty Enc Type Emergency Med Service [facility] 07/28/2012 7:00 PM Tracking Id [id number] Checkout 07/28/2012 7:00 PM Checkin 07/28/2012 5:48 PM Acuity 4 -Less Urgent Dispo Type * Discharged to Home or Self Care Arrival 07/28/2012 5:48 PM Reg Status LOS 000 01:12 Address: [address] [place] [id number] Comment: PROVIDER INFORMATION Provider Role Provider Contact Time DIAGNOSIS Closed fracture of the middle phalanx of finger 816.01 Comment: PATIENT EDUCATION INFORMATION Instructions: FRACTURE, Finger [Closed] Follow up: With: Address: When: Follow up with primary care provider Within 5 - 7 days Comments: Source: [facility] [employer] Document Id: [id number] documented in this encounter Nursing Notes Conversion, Historical Provider Ser - 07/28/2012 5:51 PM CDT ED Primary Assessment ED Primary Assessment Entered On: 07/28/2012 17:59 CDT Performed On: 07/28/2012 17:51 CDT by ROBINSON PETERSON RN Reason For Visit Diagnoses(Active) Finger injury - Minor Date: 07/28/2012 ; Diagnosis Type: Reason For Visit ; Confirmation: Complaint of ; Clinical Dx: Finger injury - Minor ; Classification: Medical ; Clinical Service: Emergency medicine ; Code: PNED ; Probability: 0 ; Diagnosis Code: [id number] Triage Chief Complaint Description : pt states she was playing volleyball yesterday and injured the pinky finger on her right hand. pt states that pain has continued, even after ice applied overnight. pt was seen by school nurse and instructed to come to ER for evaluation. Information Given By : Patient, Mother Accompanied By : Mother Mode of Arrival ED : Private vehicle, Ambulatory Track : Medical Languages : Greenlandic Vital Signs Assessed : Yes ROBINSON PETERSON RN - 07/28/2012 17:51 CDT Vital Signs Temperature Core : 37.0DegC(Converted to: 98.6DegF) Peripheral Pulse Rate : 84/min Respiratory Rate : 16/min Systolic Blood Pressure : 117mmHg Diastolic Blood Pressure : 58mmHg NIBP Mean : 78mmHg SpO2 : 97% Oxygen Saturation Monitoring Frequency : Intermittent Oxygen Therapy : Room air ROBINSON PETERSON RN - 07/28/2012 17:51 CDT Pain Assessment Pain Symptoms : Yes ROBINSON PETERSON RN - 07/28/2012 17:51 CDT Pain Pain Assessment Grid Pain 1 Location : Finger Laterality : Right Intensity : 2 Onset : Sudden Quality : Aching, Sharp Pain Radiation : Yes Radiation Characteristics : pain moves to right hand Aggravating Factors : Movement ROBINSON PETERSON RN - 07/28/2012 17:51 CDT PADILLA PADILLA Level 1 : No PADILLA Level 2 : No PADILLA Level 3 : One ROBINSON PETERSON RN - 07/28/2012 17:51 CDT DCP GENERIC CODE Tracking Acuity : 4 -Less Urgent Tracking Group : MAQN ED ROBINSON PETERSON RN - 07/28/2012 17:51 CDT Allergy Latex Reaction : No Latex Hives/Itch : No Latex Congestion/Eye Irr/Breathing : No Latex Symptom Progression : No ROBINSON PETERSON RN - 07/28/2012 17:51 CDT Allergies (Active) NKA Estimated Onset Date: Unspecified ; Created By: ROBINSON PETERSON RN; Reaction Status: Active ; Category: Drug ; Substance: NKA ; Type: Allergy ; Updated By: ROBINSON PETERSON RN; Reviewed Date: 07/28/2012 17:57 CDT ID Screen Drug Resistant Organism : No ROBINSON PETERSON - 07/28/2012 17:51 CDT TB Symptoms Grid Bloody Sputum : No Fatigue : No Fever : No Loss of Appetite : No Night Sweats : No Persistent Cough Greater Than 3 Weeks : No Weight Loss : No ROBINSON PETERSON - 07/28/2012 17:51 CDT Immunizations Immunizations Current : Yes Influenza : None ROBINSON PETERSON - 07/28/2012 17:51 CDT Respiratory Airway : Patent Respirations : Unlabored Respiratory Pattern : Regular ROBINSON PETERSON - 07/28/2012 17:51 CDT Cardiovascular Heart Rhythm : Regular Skin Color : [place] Skin Description : Normal Skin Temperature : Warm ROBINSON PETERSON - 07/28/2012 17:51 CDT Neurological Last Well Time Known : Not applicable Level of Consciousness : Alert Orientation : Oriented x 3 Characteristics of Speech : Clear ROBINSON PETERSON SARAH - 07/28/2012 17:51 CDT ED Psychosocial Affect/Behavior : Calm, Cooperative Domestic Abuse Concerns : None ROBINSON PETERSON - 07/28/2012 17:51 CDT Gastrointestinal Nutrition ED : Adequate ROBINSON PETERSON - 07/28/2012 17:51 CDT Musculoskeletal Fall Prevention Education Provided : SVETLANA ROBINSON PETERSON - 07/28/2012 17:51 CDT Musculoskeletal Joint Assessment Grid Joint Assessment #1 Location : Finger, right hand Assessment : Edema present, Tender to palpation Range of Motion : Limited motion, active, Limited motion, passive Neurovascular Status : Skin distal to injury warm and pink ROBINSON PETERSON - 07/28/2012 17:51 CDT Social Habits Tobacco Use/Currently Using : No Smoking Status : Never smoker ROBINSON PETERSON - 07/28/2012 17:51 CDT Alcohol Use Grid Alcohol Use : No ROBINSON PETERSON SARAH - 07/28/2012 17:51 CDT Recreational Drug Use Grid Drug Use : None ROBINSON PETERSON SARAH - 07/28/2012 17:51 CDT Source: [facility] [employer] Document Id: [id number] documented in this encounter ED Notes Karon Smith R.N. - 07/28/2012 7:00 PM CDT ED Disposition Summary ED Disposition Summary Entered On: 07/28/2012 19:10 CDT Performed On: 07/28/2012 19:00 CDT by KARON SMITH SENIOR TEST ANALYST Disposition Summary Accompanied By : Mother Mode of Discharge : Ambulatory Transportation : Private vehicle Printed Discharge Instructions Given to Patient : Yes Patient Status at Discharge from ED : Improved KARON SMITH RN - 07/28/2012 19:09 CDT Source: [facility] [employer] Document Id: [id number] O Vitaly Mayo M.D. - 07/28/2012 6:37 PM CDT Finger injury - Minor Patient: KERA FIGUEROA Age: 12 years Sex: Female : 2000 Author: VITALY RUIZ MD Attachments: None Associated Diagnosis: Closed fracture of the middle phalanx of finger 816.01 Basic Information Additional information: Chief Complaint from Nursing Triage Note : Chief Complaint Description. 07/28/2012 17:51 CDT Chief Complaint Description pt states she was playing volleyball yesterday and injured the pinky finger on her right hand. pt states that pain has continued, even after ice appliedovernight. pt was seen by school nurse and instructed to come to ER for evaluation. History of Present Illness Jammed in volley ball in [facility] ed. Review of Systems Additional review of systems information: All other systems reviewed and otherwise negative. Health Status Allergies: . Allergic Reactions (Selected) NKA Past Medical/ Family/ Social History Medical history: Negative. Surgical history: . No active procedure history items have been selected or recorded. Family history: . No family history items have been selected or recorded. Physical Examination Vital Signs Vital Signs. 07/28/2012 17:51 CDT Temperature Core 37.0 DegC Peripheral Pulse Rate 84 /min Respiratory Rate 16 /min SpO2 97 % Systolic Blood Pressure 117 mmHg Diastolic Blood Pressure 58 mmHg Mean Arterial Pressure 78 mmHg SpO2. 07/28/2012 17:51 CDT SpO2 97 % General: Alert and no acute distress. Skin: Warm and dry. Musculoskeletal: Fingers/toes right, fifth, dip and pip joint, tenderness, swelling, ecchymosis and pip more prominent Medical Decision Making Hand/finger x-ray findings:Reason For Exam injury Report EXAM: XR Finger Little Right INDICATION: injury COMPARISON: None. Findings/impression: There appears to be a very small avulsion fracture on the proximal volar aspect of the middle phalanx of the fifth finger. No other abnormality is seen. Would recommend clinical correlation. Signature Line Final Dictated: 07/28/2012 6:25 pm TOSHA MCDONALD MD Procedure Procedure notes: Sarah splinted to 4th finger Impression and Plan Diagnosis Closed fracture of the middle phalanx of finger 816.01 (Discharge, Emergency medicine, Medical) Plan Condition: Stable. Disposition: Discharged: Time 07/28/2012 18:41:00, to home. Patient was given the following educational materials: FRACTURE, Finger [Closed]. Follow up with: ; Follow up with primary care provider Within 5 - 7 days. Electronically Signed By: VITALY RUIZ MD On: 07/28/2012 06:46 PM Modified by and Electronically Signed by: VITALY RUIZ MD On: 07/28/2012 06:45 PM Source: [facility] [employer] Document Id: [id number]} documented in this encounter Miscellaneous Notes Miscellaneous - Karon Smith, RNanyNNany - 07/28/2012 5:48 PM CDT Facility Charge Ticket Facility Charge Ticket Entered On: 07/28/2012 19:10 CDT Performed On: 07/28/2012 17:48 CDT by KARON SMITH RN Facility Charge TVL Level for Facility Charge Ticket : Level 3 Mode of Arrival ED : Private vehicle, Ambulatory [place] Mode of Arrival Interpreted : Standard [place] Process Management : None [facility] Order Management : Xray - plain films 30 Minutes Critical Care : No [place] Nursing Assessment : Triage only [place] Disposition : Discharge [place] Total Points with Diagnosis Control : 5 [place] Visit Level : 58426 Level 3 KARON SMITH RN - 07/28/2012 19:10 CDT Source: [facility] [employer] Document Id: [id number] documented in this encounter Plan of Treatment Not on filedocumented as of this encounter Procedures Procedure Name Priority Date/Time Associated Diagnosis Comme nts DX FINGERS RIGHT 2 Routine 07/28/2012 6:23 PM Res ults for this VIEWS CDT procedure are i n the results section. documented in this encounter Results DX Fingers Right 2 Views (07/28/2012 6:23 PM CDT) Anatomical Region Laterality Modality Upper Extremity, Fingers Right Radiographic Im aging Specimen (Source) Anatomical Collection Method Collection Time Re ceived Time Location / / Volume Laterality 07/28/2012 6:23 PM CDT Addenda Addendum by Provider, Angela Zapata 07/28/2012 6:23 PM CDT RAD^^^MA XR Finger Little Right 07/28/2012 18:23:00 Narrative 07/28/2012 6:26 PM CDT EXAM: XR Finger Little Right INDICATION: injury COMPARISON: None. Findings/impression: There appears to be a very small avulsion fracture on the proximal volar aspect of the middle phalanx of the fifth finger. No other abnormality is se en. Would recommend clinical correlation. Procedure Note Tosha Mcdonald M.D. / Provider, Oskar carranza M.D. - 09/19/2016 EXAM: XR Finger Little Right INDICATION: injury COMPARISON: None. Findings/impression: There appears to be a very small avulsion fracture on the proximal volar aspect of the middle phalanx of the fifth finger. No other abnormality is se en. Would recommend clinical correlation. Yahaira Thomas R.T.(R)(CT), R.T.(R)(M) IMG DIAGNOSTIC I MAGING PROCEDURES documented in this encounter Visit Diagnoses Not on filedocumented in this encounter
--- OUTSIDE RECORDS SUMMARY | 2022-01-21 09:09 | XMS_ITS | Encounter Summary ---
:2000 Author Organization [facility] Address [address] [place] [address] Care Team Providers Name Role Phone Unavailable Primary Care Provider Unavailable Reason for Visit Reason Comments ALICE Nurse Coleen Encounter Details Date Type Department Care Team Description 03/08/2020 Clinical Communication Division of ALICE Shukla [facility] Emma Sarmiento R.N. [facility] [phone] [facility], in (Work) [place], [place] [address] [place] [address] Social History Tobacco Use Types Packs/Day Years Used Date Smoking Tobacco: Never Sex Assigned at Date Recorded Not on file documented as of this encounter Miscellaneous Notes Telephone Encounter - Emma Shukla RJenni - 03/08/2020 9:29 AM MORGUE LIBRARIAN COVID-19 Nurse Line Screening ASSESSMENT COVID 19 Screening Have you had close contact with a person who has a LABORATORY CONFIRMED case of COVID-19 in the past14 days?: Yes - Continue screening. In the last 48 hours have you had any of the following symptoms?: New sore throat Do you have any urgent symptoms?: None (Continue Screening) Has the patient had COVID19 diagnosed with a PCR test in the last 90 days? : No (End Screening- Patient Meets Criteria for Testing PLAN Endpoint recommendation: Screening positive, testing indicated, advised to be swabbed for COVID-19, sent to [facility] located at [address] [place] [address]. When you arrive at the site please text yourname and date of to the number indicated on the outdoor signage above door and follow directions received. Testing hours are M-F 9 am to 4 pm and Sat-Sun 9 am to 12:30 pm. and Please avoid using public transportation per CDC recommendation. If you do not have personal transportation please self-quarantine until a personal transportation option is available. and Provided instruction to quarantine for 14 days from the last contact exposure to a confirmed COVID-19 case and testing is recommended. The best time to test is 5-7 days after last contact with an infected individual in order to have the best chance of detecting infection. If you are unsure of your last contact, or would like testing now, we can perform testing now. Even if your test is negative, you should continue to follow [facility] recommendations. Contact your primary care team with any new symptoms. Care Points provided: STANDARD PRECAUTIONS FOR ALL PATIENTS: Wash hands often with soap and water for at least 20 seconds, especially after blowing your nose, coughing, sneezing, or having been in a public place. If soap and water aren't available, use a hand otr tanker truck driver that contains at least 60% alcohol. Avoid close contact with anyone who may be exhibiting respiratory symptoms such as coughing and sneezing. Avoid touching your eyes, nose and mouth. Clean and disinfect frequently touched surfaces daily. Cover your mouth and nose with a cloth face cover when around others or in public. The cloth face cover is not a substitute for social distancing. Continue to keep about 6 feet between yourself andothers. Monitor for symptoms. Do not take your temperature within 30 minutes of exercise. If your test or screen is negative and new symptoms develop please contact your provider if it has been greaterthan 72 hours since you were tested. Educational Resource: https://www.cdc.gov/coronavirus/2019-ncov/ eydipmq-bhilgdx-lvip/index.html RECOMMENDATIONS TESTING CRITERIA IS MET: Stay home except to get medical care. Quarantine for 14 days if exposed to someone with a laboratory confirmed case of COVID-19 exposure regardless of your test results. Avoid public areas and public transportation. Separate yourself from other people and stay in a specific sick room if possible. Wear a cloth face covering, over your nose and mouth if youmust be around other people even at home). Cover your nose and mouth when coughing or sneezing. Contact employer/occupational health department to notify them that they are being tested. Seek emergent care if any of the following occur: 1) Trouble breathing, 2) Bluish lips or face, 3) Persistent pain or pressure in the chest, 4) Newly confused or unable to stay alert and awake. Notify appropriate care provider if any new or worsening symptoms. You may need re-testing if it has been greater than 72 hours after a negative COVID- 19 test result. Education Resources: https://www.cdc.gov/coronavirus/2019- ncov/my-esa-yua-sick/zuujd-yowm-atho.html SELF CARE FOR ALL PATIENTS: Take breaks from watching, reading, or listening to news stories. Make time to unwind. Try to do some other activities you enjoy. Connect with others. Be creative in keepingconnected with loved ones, especially those at high risk. Try healthy coping strategies such as meditation, relaxation, exercise, healthy eating habits, and avoid alcohol and drugs. Education: Patient/caregiver able to teach back Patient agreeable to plan of care: Yes The following references were used: [facility] novel coronavirus (COVID- 19) resources Nursing judgement UE LIBRARIAN documented in this encounter Plan of Treatment Not on filedocumented as of this encounter Visit Diagnoses Not on filedocumented in this encounter
--- OUTSIDE RECORDS SUMMARY | 2022-01-21 09:09 | XMS_ITS | Encounter Summary ---
:2000 Author Organization [facility] Address [address] [place] [address] Care Team Providers Name Role Phone Unavailable Primary Care Provider Unavailable Encounter Details Date Type Department Care Team Description 03/23/2014 Hospital Encounter [facility]X [facility] NEZURDO GABRIELElisabet Skelton P.A.-C., COREY Social History Tobacco Use Types Packs/Day Years Used Date Smoking Tobacco: Never Assessed Sex Assigned at Date Recorded Not on file documented as of this encounter Last Filed Vital Signs Vital Sign Reading Time Taken Comments Blood Pressure 96/54 03/23/2014 7:06 PM ELECTORATE OFFICER Pulse 84 03/23/2014 7:06 PM ELECTORATE OFFICER Temperature - - Respiratory Rate - - Oxygen Saturation - - Inhaled Oxygen Concentration - - Weight 57.3 kg (126 lb 5.2 oz) 03/23/2014 7:06 PM ELECTORATE OFFICER Height 163.9 cm (5' 4.53) 03/23/2014 7:06 PM ELECTORATE OFFICER Body Mass Index 21.33 03/23/2014 7:06 PM ELECTORATE OFFICER Body Mass Index Percentile 61.28 % 03/23/2014 7:06 PM CS T Growth Chart: CDC (Girls, 2-20 Years) documented in this encounter Progress Notes Shaunna Gregory P.A.-C. - 03/23/2014 5:06 PM CST [id number] HISTORY OF PRESENT ILLNESS She does not have a chief complaint. She is here for a sports physical. The 1010-8631 sports qualifying physical examination form is used. General questions: Has a doctor ever denied participation in sports or told you to give up sports? No. The doctors never denied or restricted sports activity. She has no ongoing medical conditions like diabetes, asthma, anemia or infections. She is taking Paxil, oral contraceptive and Zantac by prescription. No allergies to medicines, pollens, foods or insects. No spending night over night in the hospital or had surgery. She has never passed out during or after exercise. No discomfort pain, pressure in the chest. No skipped beats. Never had any high blood pressure, heart murmur, high cholesterol, heart infection, rheumatic fever, Kawasaki disease. No EKGs or being excessively short of breath during exercise. Never had an explained seizure. Bone and joint questions she did have a knee injury in 2004 which she did have an x-ray. They thought there was an ACL tear and there was not so that was something that she had worked up without sequela. She has never hada stress fracture or neck instability, used braces, orthotics or assistive devices. She has not haveany muscle, bone or joint problems, swelling. No history of arthritis or connective tissue disease. No history of asthma or allergies, chest tightness during exercise. No one in the immediate family with asthma or on asthma medicine. She does not get hives or rashes when she exercises. She is not missing any organs. No painful bulge in the groin area. No history of mono, rashes, pressure sores, MRSA,head injury, concussion, prolonged headache, memory issues, seizure disorder, headaches with exercise, numbness, pain or weakness in arms or legs and no inability to move arms or legs. No muscle cramps. No sickle cell disease. No visual issue. She does wear contacts or glasses and never worried about her weight. No special dieting or avoiding certain foods. No eating disorder. No concerns today. FAMILY HISTORY No one in the immediate family has of unexpected heart problems or unexplained sudden before age 50. No one with unexplained accidents or infant sudden syndrome. No one with cardiac problems, Marfan's syndrome, ventricular tachycardia, heart problems, pacemaker or implanted defibrillator, unexplained fainting, seizures or near drowning. Sensitive issues were discussed. Patient has noconcerns. PHYSICAL EXAMINATION PSYCH: Alert and oriented. No acute distress. There is no evidence of Marfan stigmata. HEENT: Head: Normocephalic, atraumatic. Eyes: Pupils are equal, reactive to light. EOMS intact. Funduscopic exam benign. ENT: TMs pearly levin. Nose: Clear nasal drainage. Throat is clear. No lymphadenopathy. LUNGS: Clear to auscultation. HEART: Regular rate and rhythm without murmurs or extra heart sounds. Femoral and radial pulses are strong and equal bilaterally. ABDOMEN: No organomegaly palpated or percussed. Abdomen is nontender. No evidence of any hernia. SKIN: Clear. MUSCULOSKELETAL: She has good bilateral upper and lower extremity muscle strength and DTRs. She has a normal spinal curvature and is able to do the duck walk without any difficulty. IMPRESSION/REPORT/PLAN She is cleared for unrestricted sports activities and her physical form is signed. Marco Antoine/randy Electronically Signed By: SHAUNNA GREGORY PA-C On: 03/24/2014 03:47 PM Source: [facility] MHSDOLBEYNONRADSYS Document Id: [id number] TORATE OFFICER documented in this encounter Miscellaneous Notes Miscellaneous - Shaunna Gregory P.A.-C. - 03/23/2014 7:33 PM CST Ambulatory Patient Summary [facility] - [address] [id number] Visit Information Name: KERA FIGUEROA [facility] Number: [id number] Current Date: 03/23/2014 19:33:23 Physicians Attending Provider: SHAUNNA GREGORY PA-C Primary Care Provider: CAROLINA KERA PEGGY has been given the following list of [...] tablet) 1 Tablet(s), Oral, once a day multivitamin (Multiple Vitamins oral tablet) 1 Tablet(s), Oral, once a day Stop Taking the Following Medications: Medication list as of 03-23-14 19:33 Attention: If you have any medications at home that are not on this list, DO NOT take them until youcontact your provider for clarification. Give a copy of your medication list to your primary care provider. Update your medication list any time medications or doses are changed and carry your medication list at all times in case of emergency. Electronically Signed By: Signed On: Your Allergies & Intolerances Substance Reaction Symptoms Category Comments amoxicillin gi issues Drug Your Problem List Problem Status Onset Comments No Problems found Your Upcoming Appointments Date Time Location Provider No Appointments found Attention: Contact your local Clinic if further appointment detail needed. Your Goals/Additional instructions: Source: [facility] [employer] Document Id: [id number] TORATE OFFICER Miscellaneous - Shaunna Gregory P.A.-C. - 03/23/2014 7:33 PM CST Ambulatory Discharge Medication List [facility] - [facility] [address] [place] [id number] Visit Information Name: KERA FIGUEROA [facility] Number: [id number] Visit Date: 03/23/2014 19:33:22 Attending Provider: SHAUNNA GREGORY PA-C Primary Care [...] tablet) 1 Tablet(s), Oral, once a day multivitamin (Multiple Vitamins oral tablet) 1 Tablet(s), Oral, once a day Stop Taking the Following Medications: Medication list as of 03-23-14 19:33 Attention: If you have any medications at home that are not on this list, DO NOT take them until youcontact your provider for clarification. Give a copy of your medication list to your primary care provider. Update your medication list any time medications or doses are changed and carry your medication list at all times in case of emergency. Electronically Signed By: Signed On: Additional Information: Source: [facility] Document Id: [id number] TORATE OFFICER Miscellaneous - Donta Sears C.M.A. - 03/23/2014 7:06 PM CST Pediatric Photoengraving Photographer Intake/History Pediatric Photoengraving Photographer Intake/History Entered On: 03/23/2014 19:13 ELECTORATE OFFICER Performed On: 03/23/2014 19:06 ELECTORATE OFFICER by DONTA SEARS Intake Chief Complaint : sports px Temperature Core : 37.2 DegC(Converted to: 99.0 DegF) Peripheral Pulse Rate : 84 /min Systolic Blood Pressure : 96 mmHg Diastolic Blood Pressure : 54 mmHg NIBP Mean : 68 mmHg Height : 163.9 cm(Converted to: 5 ft 5 inch(es), 65 inch(es)) Actual Weight : 57.3 kg(Converted to: 126 lb 5 oz) Dosing Weight Clinic : 57.3 kg Clinic BSA : 1.62 Body Mass Index : 21.33 kg/m2 DONTA SEARS 03/23/2014 19:06 ELECTORATE OFFICER General Info Languages : Nigerien Is Patient Female and 13-50 no hysterectomy : Yes Status : Patient denies Are you ? : No DONTA SEARS 03/23/2014 19:06 ELECTORATE OFFICER Subjective Pain Symptoms : No DONTA SEARS 03/23/2014 19:06 ELECTORATE OFFICER Dependent Habits Tobacco Use/Currently Using : No Exposure to Tobacco Smoke : Care provider denies smoking in home Smoking Status : Never smoker DONTA SEARS 03/23/2014 19:06 ELECTORATE OFFICER Recreational Drug Use Grid Drug Use : None DONTA SEARS 03/23/2014 19:06 ELECTORATE OFFICER ID Screen Drug Resistant Organism : No Travel Within Last 21 Days : No DONTA SEARS 03/23/2014 19:06 ELECTORATE OFFICER Source: [facility] [employer] Document Id: [id number] ELECTORATE OFFICER!30 TORATE OFFICER documented in this encounter Plan of Treatment Not on filedocumented as of this encounter Visit Diagnoses Not on filedocumented in this encounter
--- OUTSIDE RECORDS SUMMARY | 2022-01-21 09:09 | XMS_ITS | Encounter Summary ---
:2000 Author Organization [facility] Address [address] [address] Care Team Providers Name Role Phone Denana Kimble MD Primary Care Provider Reason for Visit Reason Comments DAVID Ching referral Consult/Transfer Care (Routine) - Closed Specialty Diagnoses / Procedures Referred By Contact Refer red To Contact Allergy Diagnoses Urticaria, unspecified Stefan Ching MD Hd Allergy [address] [place] [address] [address] [place] [address] [address] [place] [id number] Fax: Referral ID Status Reason Start Date Expiration Date Visits Requ ested Visits Authorized [id number] Closed 03/02/2017 03/05/2018 1 1 Encounter Details Date Type Department Care Team Description [facility]/16[facility]2017 [facility] All[facility] Darlene Wesley MD Food intolerance; [facility], [address] [place] [address] Rhinosinusitis [address] [place] [address] [phone] Social History Tobacco Use Types Packs/Day Years Used Date Smoking Tobacco: Some Days Cigarettes 0.1 3 S tarted: 05/04/2015 Smokeless Tobacco: Never Sex Assigned at Date Recorded Not on file documented as of this encounter Last Filed Vital Signs Vital Sign Reading Time Taken Comments Blood Pressure 110/60 06/16/2017 2:13 PM TRUCK DRIVER Pulse 76 06/16/2017 2:13 PM TRUCK DRIVER Temperature - - Respiratory Rate - - Oxygen Saturation 99% 06/16/2017 2:13 PM TRUCK DRIVER Inhaled Oxygen Concentration - - Weight 64.4 kg (142 lb) 06/16/2017 2:13 PM TRUCK DRIVER Height 165.1 cm (5' 5) 06/16/2017 2:13 PM TRUCK DRIVER Body Mass Index 23.63 06/16/2017 2:13 PM TRUCK DRIVER documented in this encounter Patient Instructions Patient InstructionsDarlene Russo MD - 06/16/2017 2:15 PM TRUCK DRIVER Dust mite avoidance: Specifically covers for your mattress and pillows, washing bedding once a week in HOT water, and vacuuming once a week. Take photos if rash recurs, note what has been applied topically up to 72h prior to outbreak as wellas foods ingested within an hour Continue avoidance of shellfish while we double check with labs For itching cetirizine 10mg orally daily as needed. OK to increase to twice daily Labs today K DRIVER documented in this encounter Progress Notes Darlene Russo MD - 06/16/2017 2:15 PM CST Chief Complaint: Urticaria Sent for Allergy Consultation byStefan Ching Symptoms are as follows: Symptoms began about a year ago Location? Face, also arms and chest. Very bumpy and itchy. Not sure they move around, possibly last a week or so. Occur every other month or so.When resolving skin is dry and peeling. No obvious triggers. No bruising or purpura. Also wonders if she has a shellfish allergy. On several occasions has vomited within 2 hours of ingestion of crab or lobster. No other symptoms. Resolves after vomiting. Does suspect seasonal Allergic rhinitis, notes itchy red rash with grass contact and has some hayfever spring and fall. Finally wonders about milk allergy. Had this diagnosis as a child (although may be more of an intoelrance? Appears symptom was constipation), now develops diarrhea and congestion. . There is no problem list on file for this patient. Current Outpatient Prescriptions Medication Sig Dispense Refill ??? benzoyl peroxide (BENZACAC) 10 % gel Apply topically daily as needed. ??? cholecalciferol (VITAMIND3) 2000 UNITS tablet Take 2,000 Units by mouth daily. ??? escitalopram oxalate (LEXAPRO) 10 MG tablet Take 10 mg by mouth daily. ??? Etonogestrel-Ethinyl Estradiol (NUVARING) 0.12-0.015 MG/24HR vaginal ring Insert 1 Each vaginally . Insert on or before 5th day of cycle, remove after 3 wks,after 1 week break insert a new ring ??? lamoTRIgine (LAMICTAL) 100 MG tablet Take 100 mg by mouth daily. ??? VITAMIN B COMPLEX-C OR Take 1 Cap by mouth daily. No current facility-administered medications for this visit. Allergies Allergen Reactions ??? Amoxicillin Gastrointestinal Past Medical History: above Family history: Allergic rhinitis and eczema Social History: student, lives with dogs History Smoking Status ??? Current Some Day Smoker ??? Packs/day: 0.10 ??? Years: 3.00 ??? Types: Cigarettes ??? Start date: 05/04/2015 Smokeless Tobacco ??? Never Used Review of Systems: A ten system review of systems was performed and is negative Objective data: Vital signs are documented in the vital signs section PE: General: Appears well, NAD. Ears- TMs clear without fluid or erythema. Eyes- Conjuctiva clear, nosclera injection. Nose- normal colored mucosa, no swelling of turbinates, minimal clear mucus, no polyps. Oropharynx- Without erythema or drainage. No cobblestoning, Lymph: No significant head or neck lymphadenopthy. Lungs: Clear to auscultation without rales, rhonchi, or wheezes. Heart- RRR. Skin: nourticaria. Neuro: Oriented times 3. ALLERGY SKIN TESTS 06/16/2017 Physician DARLENE RUSSO Nurse LEIGHANN PERKINS ALLERGY SKIN TESTS - NM TOCONTROLPRICK 0 ALLERGY SKIN TESTS - NM BOTTOMCONTROL 0 ALLERGY SKIN TESTS - NM HISTAMINE 5/50 ANIMAL - CAT 0 ANIMAL - DOG 0 ANIMAL - AP DOG 0 DUST - COCKROACH 0 DUST - FEATHER MIX 0 DUST - STD MITE DF 0 DUST - STD MITE DP 06/19 MOLD - ALTERNARIA TENUIS 0 MOLD - HELMINTH SATIVUM 0 MOLD - CLADOSPO HERBARUM 0 MOLD - ASPERGILL FUMIGATUS 0 MOLD - PENICILLIUM NOTARUM 0 WEED - DWARF RAGWEED 0 WEED - GIANT RAGWEED 0 WEED - [place]I THISTLE 0 WEED - PIGWEED 0 WEED - PLANTAIN 0 TREE - HARD SUGAR MAPLE 0 TREE - ZIMBABWEAN ELM 0 TREE - COTTONWOOD 0 TREE - BIRCH MIX 0 TREE - RED OAK 0 TREE - WHITE BOBY 0 TREE - WHITE PINE 0 GRASS - ALVAREZ GRASS 0 GRASS - MAXIME 0 GRASS - ORCHARD 0 GRASS - RED TOP 0 FOOD - NUTS - ALMOND 0 FOOD - NUTS - WALNUT 0 FOOD - GRAINS - WHEAT 0 FOOD - FISH - CLAM 0 FOOD - FISH - CRAB 0 FOOD - FISH - LOBSTER 0 FOOD - FISH - OYSTER 0 FOOD - FISH - SCALLOPS 0 FOOD - FISH - SHRIMP 0 FOOD - EGG - WHOLE EGG 0 FOOD - VEGETABLES - PEANUT 0 FOOD - VEGETABLES - SOYBEAN 0 FOOD - MISC - MILK 0 Allergy skin testing positive only to dust mites (and only weakly so) . Independently reviewed. Assessment and Plan: 1. Rash, ?urticaria vs dermatitis or other. Will check screening tests for urticaria as well as confirm above with [facility] 2. Food intolerance: Discuss milk likely lactose intolerance. Suspect shellfish may be intolerance as well given numerous negative skin tests but will confirm with [facility]. Advised to avoid currently. 3. Dust mite allergy \ Patient Instructions Dust mite avoidance: Specifically covers for your mattress and pillows, washing bedding once a week in HOT water, and vacuuming once a week. Take photos if rash recurs, note what has been applied topically up to 72h prior to outbreak as wellas foods ingested within an hour Continue avoidance of shellfish while we double check with labs For itching cetirizine 10mg orally daily as needed. OK to increase to twice daily Labs today Darlene Sanches MD 06/16/2017, 2:15 PM e. K DRIVER documented in this encounter Plan of Treatment Not on filedocumented as of this encounter Results IgE Total (06/16/2017 3:14 PM TRUCK DRIVER) athologist Signature IgE,Total 23.5 0 - 126.9 [facility] ku/L Specimen Anatomical Collection Method Collection Time Receive d Time (Source) Location / / Volume Laterality 06/16/2017 3:14 PM 8 3:23 TRUCK DRIVER PM TRUCK DRIVER Narrative [facility] - 06/18/2017 11:35 AM TRUCK DRIVER Performed at [facility], [address] [place] [phone] Darlene Sanches MD LAB_1 Performing Organization Address City/[facility] Phon e Number [facility] [phone] IgE, Blue Mussel ([id number]) (06/16/2017 3:14 PM TRUCK DRIVER) P athologist Signature IgE,Blue <0.35 <0.35 kU/L [facility] Mussel kU/L [facility] Comment: Class = 0 Specimen Anatomical Collection Method Collection Time Receive d Time (Source) Location / / Volume Laterality 06/16/2017 3:14 PM 8 3:23 TRUCK DRIVER PM TRUCK DRIVER Narrative [facility] - 06/18/2017 11:35 AM TRUCK DRIVER Performed at [facility], [address] [place] [address] ??[phone] Darlene Sanches MD LAB_1 Performing Organization Address [facility] Phon e Number [facility] [phone] IgE, Lobster ([id number]) (06/16/2017 3:14 PM TRUCK DRIVER) P athologist Signature IgE,Lobster, <0.35 <0.35 kU/L [facility] kU/L [facility] Comment: Class = 0 Specimen Anatomical Collection Method Collection Time Receive d Time (Source) Location / / Volume Laterality 06/16/2017 3:14 PM 8 3:23 TRUCK DRIVER PM TRUCK DRIVER Narrative [facility] - 06/18/2017 11:35 AM TRUCK DRIVER Performed at [facility], [address] [place] [address] ??[phone] Darlene Sanches MD LAB_1 Performing Organization Address City/[facility]/ZIP Code Phon e Number [facility] [phone] IgE, Crab ([id number]) (06/16/2017 3:14 PM TRUCK DRIVER) athologist Signature IgE,Crab, kU/L <0.35 <0.35 kU/L [facility] Comment: Class = 0 Specimen Anatomical Collection Method Collection Time Receive d Time (Source) Location / / Volume Laterality 06/16/2017 3:14 PM 8 3:23 TRUCK DRIVER PM TRUCK DRIVER Narrative [facility] - 06/18/2017 11:35 AM TRUCK DRIVER Performed at [address] ??[phone] Darlene Sanches MD LAB_1 Performing Organization Address City/[facility]/ZIP [facility] Phon e Number [facility] [phone] IgE, Shrimp ([id number]) (06/16/2017 3:14 PM TRUCK DRIVER) athologist Signature IgE,Shrimp, <0.35 <0.35 kU/L [facility] kU/L [facility] Comment: Class = 0 Specimen Anatomical Collection Method Collection Time Receive d Time (Source) Location / / Volume Laterality 06/16/2017 3:14 PM 8 3:23 TRUCK DRIVER PM TRUCK DRIVER Narrative [facility] - 06/18/2017 11:35 AM TRUCK DRIVER Performed at [facility], [address] [place] [address] ??[phone] Darlene Sanches MD LAB_1 Performing Organization Address City/State/ZIP Code Phon e Number [facility] [phone] Allergy, Respiratory Panel (06/16/2017 3:14 PM TRUCK DRIVER) athologist Signature IgE,D. <0.35 <0.35 kU/L [facility] farinae, kU/L [facility] Comment: Class = 0 IgE,Cat Dander, kU/ <0.35 <0.35 kU/L [facility] Comment: Class = 0 IgE,Dog Dander, kU/L <0.35 <0.35 kU/L [facility] Comment: Class = 0 IgE, Cockroach, kU/L <0.35 <0.35 kU/L [facility] Comment: Class = 0 IgE,Willows. Grass,kU/L <0.35 <0.35 kU/L [facility] Comment: Class = 0 IgE,Darnell. Grass,kU/L <0.35 <0.35 kU/L [facility] Comment: Class = 0 IgE,Clad. herb.,kU/L <0.35 <0.35 kU/L [facility] Comment: Class = 0 IgE,Alt. tenuis,kU/L <0.35 <0.35 kU/L [facility] Comment: Class = 0 IgE,Birch, kU/L <0.35 <0.35 kU/L [facility] Comment: Class = 0 IgE,Elm, kU/L <0.35 <0.35 kU/L [facility] Comment: Class = 0 IgE,[place], kU/L <0.35 <0.35 kU/L [facility] Comment: Class = 0 IgE,Maple, kU/L <0.35 <0.35 kU/L [facility] Comment: Class = 0 IgE,Com Ragweed,kU/L <0.35 <0.35 kU/L [facility] Comment: Class = 0 IgE,D.pterony., kU/L <0.35 <0.35 kU/L [facility] Comment: Class = 0 IgE,Asp. fumig.,kU/L <0.35 <0.35 kU/L [facility] Comment: Class = 0 IgE,Is[place], kU/L <0.35 <0.35 kU/L [facility] Comment: Class = 0 IgE, [place] kU/L <0.35 <0.35 kU/L [facility] Comment: Class = 0 Specimen Anatomical Collection Method Collection Time Receive d Time (Source) Location / / Volume Laterality 06/16/2017 3:14 PM 8 3:23 TRUCK DRIVER PM TRUCK DRIVER Narrative [facility] - 06/18/2017 11:35 AM TRUCK DRIVER Performed at [facility], [address] [place] [address] ??[phone] Darlene Sanches MD LAB_1 Performing Organization Address City/State/ZIP Code Phon e Number [facility] [phone] (ABNORMAL) Comp Metabolic Panel (06/16/2017 3:14 PM TRUCK DRIVER) [facility] Method Time Signature Sodium 139 136 - 145 [facility] mmol/L [facility] Potassium 4.2 3.5 - 5.1 [facility] mmol/L [facility] Chloride 104 98 - 109 [facility] mmol/L [facility] CO2 25 20 - 29 [facility] mmol/L [facility] Anion Gap 10 7 - 16 [facility] (calc.) mmol/L [facility] Glucose 83 70 - 180 [facility] mg/dl [facility] Calcium 9.8 8.4 - [facility] 10.2 [facility] mg/dl BUN 12 7 - 26 [facility] mg/dl [facility] Creatinine 0.70 0.55 - [facility] 1.02 [facility] mg/dl GFR, Estimated >60 >60 [facility] ml/min/1. [facility] 73m2 GFR, Est., If >60 >60 [facility] Black ml/min/1. [facility] 73m2 Alkaline 71 40 - 150 [facility] Phosphatase U/L [facility] AST (SGOT) 18 10 - 40 [facility] U/L [facility] ALT (SGPT) 10 0 - 55 [facility] U/L [facility] Bilirubin, 0.2 0.2 - 1.2 [facility] Total mg/dl [facility] Protein, Total 7.4 6.4 - 8.3 [facility] g/dl [facility] Albumin 3.6 3.5 - 5.0 [facility] g/dl [facility] A/G Ratio, 0.9 (L) >1.0 [facility] calc. [facility] Specimen Anatomical Collection Method Collection Time Receive d Time (Source) Location / / Volume Laterality 06/16/2017 3:14 PM 8 3:23 TRUCK DRIVER PM TRUCK DRIVER Narrative [facility] - 06/16/2017 8:[address] Performed at [facility], [address] [place] [address] ??[phone] Darlene Sanches MD LAB_1 Performing Organization Address City/[facility]/ZIP Code Phon e Number [facility] [phone] (ABNORMAL) Complete Blood Count-W/Diff (06/16/2017 3:14 PM TRUCK DRIVER) [facility] Method Time Signature WBC 6.0 4.0 - [facility] 11.0 k/ul [facility] RBC 5.16 4.0 - 5.2 [facility] M/ul [facility] Hemoglobin 14.0 12.0 - [facility] 16.0 g/dl [facility] HCT 42.8 36.0 - [facility] 46.0 % [facility] MCV 82.9 80 - 100 [facility] fl [facility] MCH 27.1 26 - 34 [facility] pg [facility] MCHC 32.7 32 - 36 [facility] g/dl [facility] RDW 14.8 (H) 11.5 - [facility] 14.5 % [facility] Platelets 297 150 - 450 [facility] k/ul [facility] PMN/Band 57 % [facility] Lymph 34 % [facility] [place] 7 % [facility] Eos 2 % [facility] Baso 0 % [facility] Neutrophil 3.4 1.8 - 8.0 [facility] Absolute k/ul [facility] Lymph Absolute 2.1 1.2 - 5.2 [facility] k/ul [facility] [place] Absolute 0.4 0.1 - 0.7 [facility] k/ul [facility] Eos Absolute 0.1 0.0 - 0.5 [facility] k/ul [facility] Baso Absolute 0.0 0.0 - 0.2 [facility] k/ul [facility] Immature Gran 0 % [facility] Imm Gran 0.0 0 k/ul [facility] Absolute [facility] Specimen Anatomical Collection Method Collection Time Receive d Time (Source) Location / / Volume Laterality 06/16/2017 3:14 PM 8 3:23 TRUCK DRIVER PM TRUCK DRIVER Narrative [facility] - 06/16/2017 8:[address] Performed at [facility], [address] [place] [address] ??[phone] Darlene Sanches MD LAB_1 Performing Organization Address City/State/ZIP Code Phon e Number [facility] [phone] Tryptase Total (06/16/2017 3:14 PM TRUCK DRIVER) [facility] Method Time Signature Tryptase 4.8 [facility] Level Reference range: <=10.9 LABOR[facility] TORIES Unit: ug/L Tryptase (NOTE) [facility] Level [address] [place] [address] LABORATORIES [email or web address], Mode Cornell MD, Lab. Director Specimen Anatomical Collection Method Collection Time Receive d Time (Source) Location / / Volume Laterality 06/16/2017 3:14 PM 8 3:24 TRUCK DRIVER PM TRUCK DRIVER Narrative [facility] - 06/17/2017 4:[address] Performed by [facility], [address] [place], [place] [address] Darlene Sanches MD LAB_1 Performing Organization Address City/State/ZIP Code Phon e Number [facility] [phone] Anti IgE Receptor Antibody (06/16/2017 3:14 PM TRUCK DRIVER) Component Value Ref Test Analysis Performed At [facility] Range Method Time Signature IgE Receptor 1.4% [facility] Ab [facility] IgE Receptor (NOTE) [facility] Ab IgE Receptor Antibody LABORATO KRISTY ? Basophils (%), [id number] Reference Range: ??0-12 % ?? Interpretation: No Interpretive commentary necessary. ADDITIONAL INFORMATION ----- Chronic autoimmune urticaria (CIU) may be associated with ?? autoantibodies to the high affinity IgE receptor (Fc-epsilon R1) or ?? to IgE. In the presence of autoantibodies, cross-linking of the ?? Jk-abztfyz-A4 receptor occurs, leading to basophil activatio n. The ?? laboratory tests for the activation of donor basophils by CI U ?? serum by analyzing the expression of the basophil specific ? ? ectoenzyme, SO931q. KP238h is upregulated on the surface of ?? basophils following activation. A positive result is indicat debora of ?? the presence of autoantibodies associated with CIU, but may also be ?? due to other basophil-activating serum factors. Results must be ?? correlated with clinical findings. The reference range was d eveloped ?? by the [facility] es ?? by analyzing 80 healthy control serum samples. ?? This test uses a kit/reagent designated by the or assistant as for ?? research use, not for clinical use as well as one or more r eagents ?? classified as an analyte specific reagent (ASR). The perform ance ?? characteristics of this test have been validated by [facility] at [facility]. It has no t been ?? cleared or approved by the US Food and Drug Administration. The results are not intended to be used as the sole means fo r ?? clinical diagnosis or patient management decisions. This laboratory is certified under the Clinical Laboratory ? ? Improvement Amendments of 1988 (CLIA-88) as qualified to per form high ?? complexity clinical laboratory testing. Test performed by: ?? [facility] ?[address] ?[place], [place] ??[phone] Specimen Anatomical Collection Method Collection Time Receive d Time (Source) Location / / Volume Laterality 06/16/2017 3:14 PM 8 3:23 TRUCK DRIVER PM TRUCK DRIVER Darlene Sanches MD LAB_1 Performing Organization Address City/State/ZIP Code Phon e Number [facility] [phone] TSH with Free T4 (if TSH Abnormal) (06/16/2017 3:14 PM TRUCK DRIVER) athologist Signature TSH, with 2.25 0.30 - [facility] Reflex 4.50 [facility] uIU/ml Specimen Anatomical Collection Method Collection Time Receive d Time (Source) Location / / Volume Laterality 06/16/2017 3:14 PM 8 3:23 TRUCK DRIVER PM TRUCK DRIVER Narrative [facility] - 06/16/2017 8:[address] Performed at [facility], [address] [place] [phone] Darlene Sanches MD LAB_1 Performing Organization Address City/State/ZIP Code Phon e Number [facility] [phone] (ABNORMAL) Antithyroid Peroxidase (06/16/2017 3:14 PM TRUCK DRIVER) Patholo gist Method Time Signature Thyroperoxidase Ab 62 (H) 0 - 8 [facility] IU/ml [facility] Specimen Anatomical Collection Method Collection Time Receive d Time (Source) Location / / Volume Laterality 06/16/2017 3:14 PM 8 3:23 TRUCK DRIVER PM TRUCK DRIVER Narrative [facility] - 06/18/2017 11:22 AM TRUCK DRIVER Performed at [facility], [address] ??[phone] Darlene Sanches MD LAB_1 Performing Organization Address City/State/[facility] Code Phon e Number [facility] [phone] documented in this encounter Visit Diagnoses Diagnosis Chronic urticaria - Primary Other specified urticaria Food intolerance Other specified intestinal malabsorption Rhinosinusitis Unspecified sinusitis (chronic) Chronic urticaria Other specified urticaria Food intolerance Other specified intestinal malabsorption documented in this encounter Care Teams Fingerprint Clerk Relationship Specialty Start Date End Date Deanna Kimble MD PCP - General Family Practice 03/10/[address] [place] [id number] documented as of this encounter
--- OUTSIDE RECORDS SUMMARY | 2022-01-21 09:09 | XMS_ITS | Encounter Summary ---
:2000 Author Organization [facility] Address [address] [address] Care Team Providers Name Role Phone Deanna Kimble MD Primary Care Provider Encounter Details Date Type Department Care Team Description 06/16/2017 Lab Visit Kenan Senazuri orellana Laboratory Chronic urticaria; [address] [facility], [address] Food intolerance [place], [place] [id number] Social History Tobacco Use Types Packs/Day Years Used Date Smoking Tobacco: Some Days Cigarettes 0.1 3 S tarted: 05/04/2015 Smokeless Tobacco: Never Sex Assigned at Date Recorded Not on file documented as of this encounter Progress Notes Darlene Russo MD - 07/01/2017 5:09 PM CST TPO was elevated. This indicates she has [...] thyroid disease. All other screening labs unremarkable. SIT MECHANIC documented in this encounter Plan of Treatment Not on filedocumented as of this encounter Procedures Procedure Name Priority Date/Time Associated Diagnosis Comme nts TRYPTASE TOTAL Routine 06/16/2017 3:14 PM Chronic urtic aria Results for this TRANSIT MECHANIC Food intolerance procedure a re in the results section. ALLERGY RESPIRATORY Routine 06/16/2017 3:14 PM Chronic u rticaria Results for this PANEL TRANSIT MECHANIC Food intolerance procedure a re in the results section. ANTI IGE RECEPTOR Routine 06/16/2017 3:14 PM Chronic urt icaria Results for this ANTIBODY TRANSIT MECHANIC Food intolerance procedure a re in the results section. IGE, BLUE MUSSEL Routine 06/16/2017 3:14 PM Chronic urti caria Results for this (F37) TRANSIT MECHANIC Food intolerance procedure a re in the results section. IGE, SHRIMP (F24) Routine 06/16/2017 3:14 PM Chronic urt icaria Results for this TRANSIT MECHANIC Food intolerance procedure a re in the results section. IGE, LOBSTER (F80) Routine 06/16/2017 3:14 PM Chronic ur ticaria Results for this TRANSIT MECHANIC Food intolerance procedure a re in the results section. IGE, CRAB (F23) Routine 06/16/2017 3:14 PM Chronic urtic aria Results for this TRANSIT MECHANIC Food intolerance procedure a re in the results section. COMPLETE BLOOD Routine 06/16/2017 3:14 PM Chronic urtic aria Results for this COUNT-W/DIFF TRANSIT MECHANIC Food intolerance procedure a re in the results section. COMP METABOLIC PANEL Routine 06/16/2017 3:14 PM Chronic urticaria Results for this TRANSIT MECHANIC Food intolerance procedure a re in the results section. ANTITHYROID Routine 06/16/2017 3:14 PM Chronic urtic aria Results for this PEROXIDASE TRANSIT MECHANIC Food intolerance procedure a re in the results section. IGE TOTAL Routine 06/16/2017 3:14 PM Chronic urtic aria Results for this TRANSIT MECHANIC Food intolerance procedure a re in the results section. TSH, SENSITIVE (WITH Routine 06/16/2017 3:14 PM Chronic urticaria Results for this REFLEX) TRANSIT MECHANIC Food intolerance procedure a re in the results section. documented in this encounter Results IgE Total (06/16/2017 3:14 PM TRANSIT MECHANIC) P athologist Signature IgE,Total 23.5 0 - 126.9 [facility] ku/L Specimen Anatomical Collection Method Collection Time Receive d Time (Source) Location / / Volume Laterality 06/16/2017 3:14 PM 8 3:23 TRANSIT MECHANIC PM TRANSIT MECHANIC Narrative [facility] - 06/18/2017 11:35 AM TRANSIT MECHANIC Performed at [facility], [address] ??[id number] Darlene Sanches MD LAB_1 Performing Organization Address City/State/ZIP Code Phon e Number [facility] [phone] IgE, Blue Mussel (F37) (06/16/2017 3:14 PM TRANSIT MECHANIC) athologist Signature IgE,Blue <0.35 <0.35 kU/L [facility] Mussel kU/L [facility] Comment: Class = 0 Specimen Anatomical Collection Method Collection Time Receive d Time (Source) Location / / Volume Laterality 06/16/2017 3:14 PM 8 3:23 TRANSIT MECHANIC PM TRANSIT MECHANIC Narrative [facility] - 06/18/2017 11:35 AM TRANSIT MECHANIC Performed at [address] ??[id number] Darlene Sanches MD LAB_1 Performing Organization Address City/[facility] Phon e Number [facility] [phone] IgE, Lobster (F80) (06/16/2017 3:14 PM TRANSIT MECHANIC) [facility] IgE,Lobster, <0.35 <0.35 kU/L [facility] kU/L [facility] Comment: Class = 0 Specimen Anatomical Collection Method Collection Time Receive d Time (Source) Location / / Volume Laterality 06/16/2017 3:14 PM 8 3:23 TRANSIT MECHANIC PM TRANSIT MECHANIC Narrative [facility] - 06/18/2017 11:35 AM TRANSIT MECHANIC Performed at [facility], [address] [place] [address] ??[phone] Darlene Sanches MD LAB_1 Performing Organization Address City/[facility] Phon e Number [facility] [phone] IgE, Crab (F23) (06/16/2017 3:14 PM TRANSIT MECHANIC) athologist Signature IgE,Crab, kU/L <0.35 <0.35 kU/L [facility] Comment: Class = 0 Specimen Anatomical Collection Method Collection Time Receive d Time (Source) Location / / Volume Laterality 06/16/2017 3:14 PM 8 3:23 TRANSIT MECHANIC PM TRANSIT MECHANIC Narrative [facility] - 06/18/2017 11:35 AM TRANSIT MECHANIC Performed at [facility], [address] [place] [id number] Darlene Sanches MD LAB_1 Performing Organization Address [facility] Phon e Number [facility] [phone] IgE, Shrimp (F24) (06/16/2017 3:14 PM TRANSIT MECHANIC) athologist Signature IgE,Shrimp, <0.35 <0.35 kU/L [facility] Comment: Class = 0 Specimen Anatomical Collection Method Collection Time Receive d Time (Source) Location / / Volume Laterality 06/16/2017 3:14 PM 8 3:23 TRANSIT MECHANIC PM TRANSIT MECHANIC Narrative [facility] - 06/18/2017 11:35 AM TRANSIT MECHANIC Performed at [facility], [address] [place] [address] ??[phone] Darlene Sanches MD LAB_1 Performing Organization Address [facility] e Number [facility] [phone] Allergy, Respiratory Panel (06/16/2017 3:14 PM TRANSIT MECHANIC) athologist Signature IgE,D. <0.35 <0.35 kU/L [facility] farinae, kU/L [facility] Comment: Class = 0 IgE,Cat Dander, kU/ <0.35 <0.35 kU/L [facility] Comment: Class = 0 IgE,Dog Dander, kU/L <0.35 <0.35 kU/L [facility] Comment: Class = 0 IgE, Cockroach, kU/L <0.35 <0.35 kU/L [facility] Comment: Class = 0 IgE,[place]. Grass,kU/L <0.35 <0.35 kU/L [facility] [...] [facility] Comment: Class = 0 IgE,[place], kU/L <0.35 <0.35 kU/L [facility] Comment: Class = 0 IgE,Maple, kU/L <0.35 <0.35 kU/L [facility] Comment: Class = 0 IgE,Com Ragweed,kU/L <0.35 <0.35 kU/L [facility] Comment: Class = 0 IgE,D.pterony., kU/L <0.35 <0.35 kU/L [facility] Comment: Class = 0 IgE,Asp. fumig.,kU/L <0.35 <0.35 kU/L [facility] Comment: Class = 0 IgE,[place], kU/L <0.35 <0.35 kU/L [facility] Comment: Class = 0 IgE, [place] kU/L <0.35 <0.35 kU/L [facility] Comment: Class = 0 Specimen Anatomical Collection Method Collection Time Receive d Time (Source) Location / / Volume Laterality 06/16/2017 3:14 PM 8 3:23 TRANSIT MECHANIC PM TRANSIT MECHANIC Narrative [facility] - 06/18/2017 11:35 AM TRANSIT MECHANIC Performed at [facility], [address] [place] [phone] Darlene Sanches MD LAB_1 Performing Organization Address City/State/ZIP Code Phon e Number [facility] [phone] (ABNORMAL) Comp Metabolic Panel (06/16/2017 3:14 PM TRANSIT MECHANIC) [facility] Method Time Signature Sodium 139 136 [...] Volume Laterality 06/16/2017 3:14 PM 8 3:23 TRANSIT MECHANIC PM TRANSIT MECHANIC Narrative [facility] - 06/16/2017 8:[address] Performed at [facility], [address] [place] [phone] Darlene Sanches MD LAB_1 Performing Organization Address City/State/ZIP Code Phon e Number [facility] [phone] (ABNORMAL) Complete Blood Count-W/Diff (06/16/2017 3:14 PM TRANSIT MECHANIC) [facility] Method Time Signature WBC 6.0 4.0 [...] [facility] Lymph 34 % [facility] [place] 7 % [facility] Eos 2 % [facility] Baso 0 % [facility] Neutrophil 3.4 1.8 - 8.0 [facility] k/ul [facility] Lymph Absolute 2.1 1.2 - 5.2 [facility] k[facility]ul [facility] [place] Absolute 0.4 0.1 - 0.7 [facility] k[facility]ul [facility] Eos Absolute 0.1 0.0 - 0.5 [facility] k[facility]ul [facility] Baso Absolute 0.0 0.0 - 0.2 [facility]ul [facility] Immature Gran 0 % [facility] Imm Gran 0.0 0 k/ul [facility] Specimen Anatomical Collection Method Collection Time Receive d Time (Source) Location / / Volume Laterality 06/16/2017 3:14 PM 8 3:23 TRANSIT MECHANIC PM TRANSIT MECHANIC Narrative [facility] - 06/16/2017 8:[address] Performed at [facility], [address] [place] [phone] Darlene Sanches MD LAB_1 Performing Organization Address City/[facility]/ZIP Code Phon e Number [facility] [phone] Tryptase Total (06/16/2017 3:14 PM TRANSIT MECHANIC) [facility] Method Time Signature Tryptase 4.8 [facility] Reference range: <=10.9 [facility]OR[facility] TORIES Unit: ug/L Tryptase (NOTE) [facility] Level [address] [place] [address] LABORATORIES [email or web address], Mode Cornell MD, Lab. Director Specimen Anatomical Collection Method Collection Time Receive d Time (Source) Location / / Volume Laterality 06/16/2017 3:14 PM 8 3:24 TRANSIT MECHANIC PM TRANSIT MECHANIC Narrative [facility] - 06/17/2017 4:[address] Performed by [facility], [address] [place], [place] [address] Darlene Sanches MD LAB_1 Performing Organization Address City/State/ZIP Code Phon e Number [facility] [phone] Anti IgE Receptor Antibody (06/16/2017 3:14 PM TRANSIT MECHANIC) Component Value Ref Test Analysis Performed At [facility] Range Method Time Signature IgE Receptor 1.4% [facility] IgE Receptor (NOTE) [facility] IgE Receptor Antibody LABORATO KRISTY ? Basophils (%), SB516s Reference Range: ??0-12 % ?? Interpretation: No Interpretive commentary necessary. ADDITIONAL INFORMATION ----- Chronic autoimmune urticaria (CIU) may be associated with ?? autoantibodies to the high affinity IgE receptor (Fc-epsilon R1) or ?? to IgE. In the presence of autoantibodies, cross-linking of the ?? Ds-sschhcw-U9 receptor occurs, leading to basophil activatio n. The ?? laboratory tests for the activation of donor basophils by CI U ?? serum by analyzing the expression of the basophil specific ? ? ectoenzyme, XR855b. CQ266y is upregulated on the surface of ?? basophils following activation. A positive result is indicat debora of ?? the presence of autoantibodies associated with CIU, but may also be ?? due to other basophil-activating serum factors. Results must be ?? correlated with clinical findings. The reference range was d eveloped ?? by the [facility] ?? by analyzing 80 healthy control serum samples. ?? This test uses a kit/reagent designated by the fruit loader as for ?? research use, not for clinical use as well as one or more r eagents ?? classified as an analyte specific reagent (ASR). The perform ance ?? characteristics of this test have been validated by [facility] at . It has no t been ?? cleared [...] clinical laboratory testing. Test performed by: ?? -[facility] ?[address] ?[place], [place] ??[address] Specimen Anatomical Collection Method Collection Time Receive d Time (Source) Location / / Volume Laterality 06/16/2017 3:14 PM 8 3:23 TRANSIT MECHANIC PM TRANSIT MECHANIC Darlene Sanches MD LAB_1 Performing Organization Address City/State/ZIP Code Phon e Number [facility] [phone] TSH with Free T4 (if TSH Abnormal) (06/16/2017 3:14 PM TRANSIT MECHANIC) P athologist Signature TSH, with 2.25 0.30 - [facility] Reflex 4.50 [facility] uIU/ml Specimen Anatomical Collection Method Collection Time Receive d Time (Source) Location / / Volume Laterality 06/16/2017 3:14 PM 8 3:23 TRANSIT MECHANIC PM TRANSIT MECHANIC Narrative [facility] - 06/16/2017 8:[address] Performed at [facility], [address] [place] [phone] Darlnee Sanches MD LAB_1 Performing Organization Address [facility] Code Phon e Number [facility] [phone] (ABNORMAL) Antithyroid Peroxidase (06/16/2017 3:14 PM TRANSIT MECHANIC) Patholo gist Method Time Signature Thyroperoxidase Ab 62 (H) 0 - 8 [facility] IU/ml [facility] Specimen Anatomical Collection Method Collection Time Receive d Time (Source) Location / / Volume Laterality 06/16/2017 3:14 PM 8 3:23 TRANSIT MECHANIC PM TRANSIT MECHANIC Narrative [facility] - 06/18/2017 11:22 AM TRANSIT MECHANIC Performed at [facility], [address] [place] [phone] Darlene Sanches MD LAB_1 Performing Organization Address City/[facility]/ZIP Code Phon e Number [facility] [phone] documented in this encounter Visit Diagnoses Diagnosis Chronic urticaria Other specified urticaria Food intolerance Other specified intestinal malabsorption documented in this encounter Care Teams Groundhand Relationship Specialty Start Date End Date Deanna Kimble MD PCP - General Family Practice 03/10/17 [address] [place] [address] documented as of this encounter
--- OUTSIDE RECORDS SUMMARY | 2022-01-21 09:09 | XMS_ITS ---
:2000 Author Care Team Providers Name Role Phone Lloyd Saeed Primary Care Provider Unavailable Allergies Code Code System Name Reaction Severity Status Onset NKDA ? Medications Name Status Start Date Stop Date ? ? aripiprazole 5 mg tablet Active ? Not janell ilable TAKE 1/2 TABLET BY MOUTH EVERY MORNING FOR 1 WEEK THEN TAKE 1 TABLET BY MOUTH EVERY MORNING buspirone 10 mg tablet Active ? Not avail able TAKE 2 TABLETS BY MOUTH TWICE DAILY buspirone 30 mg tablet Active ? Not avail able TAKE 1 TABLET BY MOUTH TWICE DAILY hydroxyzine HCl 25 mg tablet Active ? Not available TAKE 1 TO 2 TABLETS BY MOUTH TWICE DAILY NEEDED FOR ANXIETY lamotrigine 200 mg tablet Active ? Not av ailable TAKE 2 TABLETS BY MOUTH AT BEDTIME NuvaRing 0.12 mg-0.015 mg/24 hr vaginal Active ? Not available quetiapine 25 mg tablet Active ? Not avai lable trazodone 50 mg tablet Active ? Not avail able TAKE 1 TABLET BY MOUTH EVERY NIGHT AT BEDTIME NEEDED Problems Name Status Onset Date Source ? Depressive Disorder Active 12/04/2020 ? Seizure Disorder Active 12/04/2020 ? Bipolar Disorder Active 05/31/2021 ? Procedures None recorded. Results Lab Results Date Name Specimen Result Interpretation Description Value Range Status Address ? 05/31/2021 SARS CoV 2 RNA, Nose (nasal ? Result negative ? ? [facility] QL, MISSY+probe, passage) [facility] N[facility] [place]: [address] , [place] 12/06/2020 SARS CoV 2 RNA, Nose (nasal ? Result positive ? ? [facility] QL, MISSY+probe, passage) [facility] Nose [place]: [address] , [place] 12/04/2020 SARS CoV 2 RNA, Nose (nasal ? Result negative ? ? [facility] QL, MISSY+probe, passage) Urgent [facility] Nose [place]: [address] [facility] [address] , [place] Past Encounters 05/31/2021 Exposure to SARS-CoV-2 JAYLON Palma: [address], [place] [address], Ph. 12/06/2020 Covid-19 JAYLON Olvera: [address], [address], [place] [address], Ph. 12/04/2020 Exposure to SARS-CoV-2; Sore Throat Symp nadia JAYLON Olvera: [address], [address], [place] [address], Ph. Social History Tobacco Smoking Status Light Tobacco Smoker (1 pack per week ) Vaccine List Vaccine Type DTaP 1998 1998 1998 08/16/1999 04/21/2003 Hep A, ped/adol, 3 dose 11/12/2010 Hep A, pediatric, unspecified formulatio n 04/01/2007 Hep B, adolescent or pediatric 1998 1998 04/23/1999 Hib (HbOC) 1998 1998 1998 08/16/1999 HPV, quadrivalent 11/12/2010 02/17/2011 03/09/2012 IPV 1998 1998 08/16/1999 04/21/2003 meningococcal MCV4P 11/12/2010 MMR 08/16/1999 04/21/2003 OPV 1998 pneumococcal conjugate PCV 7 05/29/2000 Td (adult), adsorbed 01/11/2021 Tdap 11/12/2010 varicella 05/29/2000 Plan of Care Patient Instructions Discussed rapid covid results with troy ent. No treatment indicated as patient is asymptomatic. Patient in agreement and understanding. All questions answered. RTC as needed. Discussed rapid covid results with troy ent and recommended quarantine per CDC guidelines. Patient to follow up with jerome thurman for further guidelines. Patient appears well, vitals stable and no immediate con cerns. Patient understands and agrees with treatment plan and instructions. Symptom management discussed. Medication side effects discussed. Discussed risks? bene fits? alternatives? side effects of treatment. If symptoms progress or worse n, patient should proceed to the emergency room immediately. All questions answered . Discussed rapid covid results with troy ent. Patient appears well, no immediate concerns. Patient understands and agrees with treatment plan and instructions. Symptom management discussed to continue OT C cough/cold medications as needed. Medi cation side effects discussed. Discussed risks? benefits? alternatives? side effects of treatment. If symptoms progress or worsen, patient sh ould proceed to the emergency room immed iately. All questions answered. Please consult our office promptly if yo u develop any of the following symptoms: 1. A fever of at least 101?F or 38.4?C 2. Throat pain that is severe or does no t start to improve within 5 to 7 days Call for an ambulance or go to the emerg ency room if you: 1. Have trouble breathing 2. Cannot control your saliva (drooling) due to difficulty swallowing 3. Have swelling of the neck or tongue 4. Cannot move your neck or have trouble opening your mouth Reminders Provider Appointments None recorded. ? ? Lab None recorded. ? ? Referral None recorded. ? ? Procedures None recorded. ? ? Surgeries None recorded. ? ? Imaging None recorded. ? ? Vitals 05/31/2021 11:00AM URGENT CARE Blood Pressure 113/72 mm[Hg] 12/06/2020 01:30PM URGENT CARE Blood Pressure 114/72 mm[Hg] 12/04/2020 08:10AM URGENT CARE Blood Pressure 122/68 mm[Hg]
--- OUTSIDE RECORDS SUMMARY | 2022-01-21 09:09 | XMS_ITS | Clinical Summary ---
:2000 Author Organization [facility] Address [address] [place] [address] Care Team Providers Name Role Phone Unavailable Primary Care Provider Unavailable Source Comments Patient records contain information from all sites at [facility]. For routine questions regarding patient records, call [phone] during business hours, M-F 8:00 AM - 5:00 PM Central Time. Record requests for emergency care only can be directed to [phone] at any time.[facility] Social History Tobacco Use Types Packs/Day Years Used Date Smoking Tobacco: Never Sex Assigned at Date Recorded Not on file Last Filed Vital Signs Vital Sign Reading Time Taken Comments Blood Pressure 128/71 04/27/2015 12:06 PM EXECUTIVE STAFF ASSISTANT Pulse 67 04/27/2015 12:06 PM EXECUTIVE STAFF ASSISTANT Temperature - - Respiratory Rate 12 04/27/2015 12:06 PM EXECUTIVE STAFF ASSISTANT Oxygen Saturation - - Inhaled Oxygen Concentration - - Weight 60 kg (132 lb 4.4 oz) 04/27/2015 12:06 PM EXECUTIVE STAFF ASSISTANT Height 166 cm (5' 5.35) 04/27/2015 12:06 PM EXECUTIVE STAFF ASSISTANT Body Mass Index 21.77 04/27/2015 12:06 PM EXECUTIVE STAFF ASSISTANT Plan of Treatment Health Maintenance Due Date Last Done Comments Cervical Cancer Screening 1998 Chlamydia and Gonorrhea 1998 Screening HIV Screening 1998 Hepatitis C Screening 1998 COVID-19 Vaccine (#1) 1998 Depression Screening 05/04/2021 (Annual PHQ-2) Influenza Vaccine (#1) 2022 DTaP,Tdap,and Td Vaccines 01/11/2031 01/11/2021, 11/12/2010 , (8 - Td or Tdap) 04/21/2003, Additional history exists Hepatitis B Vaccines Completed 04/23/1999, 1998, 1998 Pneumococcal vaccine (0-64 Aged Out 05/29/2000 No lo nger eligible years) based on patient 's age to complete this topic HPV Vaccines Completed 03/09/2012, 02/17/2011, 11/12/2010 Insurance Payer Benefit Plan Subscriber ID Effective Dates Phone Address Type / Group RAMON FRAIRE [facility] [id number] 2018-Jair [phone] [address] [address] PPO [facility] [address] [place] [address]
[2022-01-21 14:05] LABS: Cholesterol* 200 mg/dL (90-199)
[2022-01-21 14:06] LABS: HDL Cholesterol* 86 mg/dL (>=50); LDL Cholesterol Calculated 96 mg/dL (<100); Triglycerides* 90 mg/dL (40-149)
[2022-01-21 22:52] LABS: Glucose* 90 mg/dL (60-115)
== END 2022-01-21 09:05 | disposition home or self-care (01) ==
LOC: LKVREF 09:05
PROVIDERS: PCP Physician Assistant Medical
DX: F31.81 Bipolar II disorder (principal)
CPT/HCPCS: 80061; 82947

== ENCOUNTER 2022-01-29 08:49 | Outpatient (CLI) | payer BC, SELFPAY ==
--- OUTSIDE RECORDS SUMMARY | 2022-01-29 08:53 | XMS_ITS | Clinical Summary ---
:2000 Author Organization [facility] Address [address] [place] [address] Care Team Providers Name Role Phone Unavailable Primary Care Provider Unavailable Source Comments Patient records contain information from all sites at [facility]. For routine questions regarding patient records, call [phone] during business hours, M-F 8:00 AM - 5:00 PM Central Time. Record requests for emergency care only can be directed to [phone] at any time.[facility] Social History Tobacco Use Types Packs/Day Years Used Date Smoking Tobacco: Never Sex Assigned at Date Recorded Not on file Last Filed Vital Signs Vital Sign Reading Time Taken Comments Blood Pressure 128/71 04/27/2015 12:06 PM CHIP MIXER Pulse 67 04/27/2015 12:06 PM CHIP MIXER Temperature - - Respiratory Rate 12 04/27/2015 12:06 PM CHIP MIXER Oxygen Saturation - - Inhaled Oxygen Concentration - - Weight 60 kg (132 lb 4.4 oz) 04/27/2015 12:06 PM CHIP MIXER Height 166 cm (5' 5.35) 04/27/2015 12:06 PM CHIP MIXER Body Mass Index 21.77 04/27/2015 12:06 PM CHIP MIXER Plan of Treatment Health Maintenance Due Date [...] Phone Address Type / Group RAMON FRAIRE [facility] [id number] 2018-Jair [phone] [address] [address] PPO [facility] [address] [place] [address]
--- OUTSIDE RECORDS SUMMARY | 2022-01-29 08:53 | XMS_ITS | Encounter Summary ---
:2000 [facility] Address [address], [place] [address] Care Team Providers Name Role Phone Unassigned, Provider Primary Care Provider Unavailable Reason for Visit Reason Comments REFERRAL VISIT CANCELLATION FOR Encounter Details Date Type Department Care Team Description 03/06/2017 [facility]phone [facility] Steve Sanches, REF ERRAL VISIT Allergy Clinic Darlene Wesley MD (CANCELLATION FOR [address] [facility], [address] [facility] 03/31) [address] [place] [address] [phone] Social History Tobacco Use Types Packs/Day Years Used Date Smoking Tobacco: Never Assessed Sex Assigned at Date Recorded Not on file documented as of this encounter Nursing Notes Jody Cobian - 03/06/2017 1:21 PM CDT CANCELLATION [...] on filedocumented in this encounter Care Teams Assembler [employer] Hull Relationship Specialty Start Date End Date Unassigned, Provider PCP - General 01/28/00 03/09/17 [address] [place] [address] documented as of this encounter
--- OUTSIDE RECORDS SUMMARY | 2022-01-29 08:53 | XMS_ITS | Encounter Summary ---
:2000 Author Organization [facility] Address [address], [place] [address] Care Team Providers Name Role Phone Deanna Kimble MD Primary Care Provider Reason for Visit Reason Comments LAB RESULTS Encounter Details Date Type Department Care Team Description 07/02/2017 Telephone [facility] Allergy Martina contreras, LAB RESULTS Clinic Darlene Wesley MD [address] [place] [address], [address] [place], [place] [id number] [place] [address] [phone] (Wo rk) Social History Tobacco Use Types [...] care. Ashley Moss RN 07/02/2017, 11:10 AM OR RESERVOIR ENGINEER Kesha Falcon RN - 07/02/2017 8:47 AM CST ----- Message from Darlene Sanches MD sent at 07/01/2017 5:09 PM SENIOR RESERVOIR ENGINEER ----- TPO was elevated. This indicates she [...] thyroid disease. All other screening labs unremarkable. OR RESERVOIR ENGINEER documented in this encounter Plan of Treatment Not on filedocumented as of this encounter Visit Diagnoses Not on filedocumented in this encounter Care Teams Security Chief Museum Relationship Specialty Start Date End Date Deanna Kimble MD PCP - General Family Practice 03/10/17 [address] [place] [address] documented as of this encounter
--- OUTSIDE RECORDS SUMMARY | 2022-01-29 08:53 | XMS_ITS | Encounter Summary ---
:2000 Author Organization [place] Address [address] [place] [address]. [place] [address] Care Team Providers Name Role Phone [facility] mel[facility]ie Clinics- Encounter [...] on filedocumented in this encounter Care Teams Medical Grade Shoemaker Relationship Specialty Start Date End Date [facility] And PCP - General 08/02/18 [facility] [address] [place] [address] documented as of this encounter
--- OUTSIDE RECORDS SUMMARY | 2022-01-29 08:53 | XMS_ITS | Encounter Summary ---
:2000 Author Organization [place] Address [address] [place] [address]. [place] [address] Care Team Providers Name Role Phone [facility] Primary [facility] melonie Clinics- Encounter Details Date Type Department Care Team Description 03/02/2017 [facility] [address] [address] Social History Tobacco Use Types Packs/Day Years Used Date Never Assessed Sex Assigned at Date Recorded Not on file documented as of this encounter Plan of Treatment Not on filedocumented as of this encounter Visit Diagnoses Not on filedocumented in this encounter Care Teams Environmental Coordinator Relationship Specialty Start Date End Date [facility] And PCP - General 08/02/18 [facility] [address] [place] [address] documented as of this encounter
--- OUTSIDE RECORDS SUMMARY | 2022-01-29 08:53 | XMS_ITS | Encounter Summary ---
:2000 [facility] Address [address], [place] [address] Care Team Providers Name Role Phone Deanna Kimble MD Primary Care Provider Encounter Details Date Type Department Care Team Description 06/16/2017 Office Visit Kenan Wilson Allergy [facility], Clinic Provider [address] [facility] [address], [address] [place] [address] Social History Tobacco Use Types Packs/Day Years Used Date Smoking Tobacco: Some Days Cigarettes 0.1 3 S tarted: 05/04/2015 Smokeless Tobacco: Never Sex Assigned at Date Recorded Not on file documented as of this encounter Plan of Treatment Not on filedocumented as of this encounter Visit Diagnoses Not on filedocumented in this encounter Care Teams Lift Mechanic Relationship Specialty Start Date End Date Deanna Kimble MD PCP - General Family Practice 03/10/17 [address] [place] [address] documented as of this encounter
--- OUTSIDE RECORDS SUMMARY | 2022-01-29 08:53 | XMS_ITS | Encounter Summary ---
:2000 Author Organization [place] Address [address] [place] [address]. [place] [address] Care Team Providers Name Role Phone [facility], [facility] And Primary Care [facility] melonie Clinics- Encounter Details Date Type Department Care Team Description 03/02/2017 Office Visit - Dina Ching, [facility] april SANT[place] [address] [facility] [phone] [phone] [place] [address] Social History Tobacco Use Types Packs/Day Years [...] 14 cap(s), 0 Refill(s), Type: Maintenance, Pharmacy: [facility], 1 cap(s) po bid,x7 day(s) phenazopyridine, 2 tab(s) ( 195 mg ), po, tidpc, # 6 tab(s), 0 Refill(s), Type: Maintenance, Pharmacy: [facility], 2 tab(s) po tidpc,x2 day(s) 20519 office outpatient visit 15 minutes (Charge), Quantity: 1, Acute UTI [place] [id number] office outpatient visit 15 minutes (Charge), Quantity: 1, Acute UTI [place] POC URINALYSIS, UA* ([facility]), Specimen Type: Urine, Collection Date: 03/02/17 14:50:00 CDT U[place] Ordered: [id number] office outpatient visit 15 minutes (Charge), Quantity: 1, Acute UTI [place] 09369 office outpatient visit 15 minutes (Charge), Quantity: 1, Acute UTI [place] Referral (Request), 03/02/17 15:19:00 CDT, Referred to: Allergy & Immunology, [place] Patient Information Name:KERA FIGUEROA Address: [address] [place] [phone] Sex:Female Date of :2000 Emergency Contact:CRYSTAL PABLO Location:[facility] Date of Service:03/02/2017 Primary Care Physician: [...] NEGATIVE (03/02/17 02:57 PM CDT) UA Specific [place]: 1.020 (03/02/17 02:57 PM CDT) UA pH [...] on filedocumented in this encounter Care Teams Review Coordinator Relationship Specialty Start Date End Date [facility] And PCP - General 08/02/18 [facility] [address] [place] [address] documented as of this encounter
--- OUTSIDE RECORDS SUMMARY | 2022-01-29 08:53 | XMS_ITS | Encounter Summary ---
:2000 Author Organization [facility] Address [address] [address] Care Team Providers Name Role Phone Deanna Kimble MD Primary Care Provider Encounter Details Date Type Department Care Team Description 11/10/2019 criselda Mcdaniels [phone] Social History Tobacco Use Types Packs/Day Years [...] try an antibiotic. I sent a prescriptionto [facility] . I've also listed a few of [...] a full stomach. Refills: None Sent To: [facility] [address] [place], [place] [id number] Treatment Plan Self Care Tip Topics Warm [...] (trazodone) lamotrigine (lamotrigine) Allergies amoxicillin (amoxicillin), oral Kliqed Information [facility] We are an online clinic open 24/11. If you have any questions or comments about this visit, please call or email [email or web address]. documented in this encounter Plan of Treatment Not on filedocumented as of this encounter Visit Diagnoses Not on filedocumented in this encounter Care Teams Campaign Fundraiser Relationship Specialty Start Date End Date Deanna Kimble MD PCP - General Family Practice 03/10/17 [address], [place] [address] documented as of this encounter
--- OUTSIDE RECORDS SUMMARY | 2022-01-29 08:53 | XMS_ITS | Encounter Summary ---
:2000 Author Organization [facility] Address [address] [place] [address] Care Team Providers Name Role Phone [facility] Provi melonie Clinics- Reason for Visit Auth/Cert Specialty Diagnoses / Procedures Referred By Contact Refer red To Contact Behavioral Health Diagnoses mental health Ur Young Adult Inpt [facility] B ldg Station [address] [place] [phone] Phone: Referral ID Status Reason Start Date Expiration Date Visits Requ ested Visits Authorized [id number] 1 1 Encounter Details Date Type Department Care Team Description 08/03/2018 - Hospital Encounter [facility] Guillermo Carrion MD [address] [place] [id number] Bipolar affective disorder, remission st atus unspecified (H) (Primary Dx); 08/12/2018 Clinic Young Adult Jose L Morse MD [address] [place] [address] Depression with anxiety [facility] Bldg Station [address] [place] [phone] Social History Tobacco Use Types Packs/Day [...] The patient is a full-time student at [employer]; she is a sophomore. The patient reports that she works part-time at [employer] in [place]. See Admission note by Cristela Turner APRN [...] card and ID. Provider: Fartun Cazares Address: [facility], [address] [place], [place] [id number] The [facility] has faxed the AVS to this provider at ?? Therapy Appointment Date: 08/16/2018 Time: 11:00am Provider: Gopal Cunningham Address: [facility], [address] [place] [address] The [facility] has faxed the AVS to this provider at ?? Resources: Mental health crisis response for your county is offered 24 hours a day, 7 days a week. Atrained counselor will assess your current situation, offer support and counseling and connect you with local resources. Please call [facility] Crisis Response [phone] [place], [place], [place], [place], [place], [place], [place], [place], [place] and [facility] Crisis Response Number: [phone] ?? Crisis Intervention: 853.221.2364 or [phone] (TTY: 179.824.8254). Call anytime for help. National [place] on Mental Illness (www.[place].carroll.org): 681.591.7465 or 277-500-2976. Suicide Awareness Voices of Education (SAVE) (www.save.org): 414-591-LKKL (3788) National Suicide Prevention Line (www.mentalhealthmn.org): 038-361-GGDN (3354) Mental Health Consumer/Survivor Network of [place] (www.mhcsn.net): 496.846.3821 or 988-000-0367 Mental Health Association of [place] (www.mentalhealth.org): 341.286.1482 or 399-577-6919 Self- Management and Recovery Training., SMART-- Toll free: [phone] www.SeatSwapr.LiveLeaf [place] [address] for immediate support and crisis intervention Crisis text line: Text [place] to [address]56502. Free, confidential, 24/11. Attestation: The patient has been seen and evaluated by ga, Jose L Morse MD documented in this encounter Discharge Instructions Discharge KayleycarmellagracielaFitz - 08/12/2018 12:21 PM CDT Behavioral Discharge Planning and Instructions Summary: You were admitted on 08/03/[address] [place] [address] due to Suicidal Ideation. You were treatedby CHRISTY Valadez APRN and Dr. Jose L Morse and discharged on to Home Principal Diagnosis: Major depressive disorder, recurrent, severe without psychosis Health Care Follow-up Appointments: Day Treatment Intake Appointment Date: 08/13/2018 Time: 2:30pm Please arrive 20 minutes early to complete paperwork and provide your insurance card and ID. Provider: Fartun Cazares Address: [facility], [address] [place] [address], [place] [address] The [facility] has faxed the AVS to this provider at Therapy Appointment Date: 08/16/2018 Time: 11:00am Provider: Gopal Cunningham Address: [facility], [address] [place] [address], [place] [address] The [facility] has faxed the AVS to this provider [...] there is a concern for safety, call 341. Resources: Mental health crisis response for your [facility] is offered 24 hours a day, 7 days a week. Atrained counselor will assess your current situation, offer support and counseling and connect you with local resources. Please call [facility] Crisis Response [phone] [place], [place], [place], [place], [facility] Crisis Response Number: [phone] Crisis Intervention: 127.994.1138 or 930-625-2516 (TTY: 657.338.3576). Call anytime for help. National [place] on Mental Illness (www.mn.carroll.org): 431.110.4669 or 678-404-5483. Suicide Awareness Voices of Education (SAVE) (www.save.org): 713-116-TQXU (8818) National Suicide Prevention Line (www.mentalhealthmn.org): 311-116-XTOU (2590) Mental Health Consumer/Survivor Network of [place] (www.mhcsn.net): 298.837.6396 or 059-247-5252 Mental Health Association of [place] (www.mentalhealth.org): 240.399.5266 or 548-500-3116 Self- Management and Recovery Training., SMART-- Toll free: 613.717.2401 Pressable.AdMoment Text [place] [address] for immediate support and crisis intervention Crisis text line: Text [place] to 995858. Free, confidential, 24/11. The treatment team has appreciated the opportunity to work with you. Kera, please take care and make your recovery a daily recovery. If you have any questions or concerns our unit number is [phone]. You will be receiving a follow-up phone call within the next three days from a financial sales representative from behavioral health. You have identified the best phone number to reach you as [phone] (home) documented in this encounter Medications at [...] to have a meeting with her Clinical Seed Potato Cutter tomorrow to making sure her Day Program, and Aggrieved Counselor program will be ready prior to the day she will be discharged. Patient appears calm, pleasant, relates well with other patients, displays bright affect, and follows directions. 08/11/18 332 Behavioral Health Hallucinations denies / not responding [...] Morse MD - 08/11/2018 11:24 AM CDT [facility] Psych[facility] Progress Note Interim History: The patient's [...] - 08/10/2018 12:33 PM CDT Behavioral Health Hat Block Bench Hand Note Behavioral Health Hat Block Bench Hand Spirituality Group Note UNIT [address] [place] Name: Kera Figueroa Date of : 2000 Age: [age] year old Patient attended Hat Block Bench Hand-led group, which included discussion of spirituality, coping with illness and building resilience. Patient attended group for 1.0 hrs. The patient actively participated in group discussion and patient demonstrated an appreciation of topic's application for their personal circumstances. Yen Zepeda Chair And Couch Maker Pager [phone] Jose L Morse MD - 08/10/2018 10:44 AM CDT [facility] Psych[facility] Progress Note Interim History: The patient's [...] at night. 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 Pt's parent's were . Pt's mother is [...] cultural issues that impact treatment Spiritual Orientation [facility] [employer] Service History Denies Educational/Financial/Occupational FT student at the [employer]. 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 Social functioning (organization, interests) Nothing at this time Current Health Care Providers Medication Management: Dominga Wttcoff [phone] fax [phone] Therapist: Primary Care: Water Chemist: [facility]/Home Health nurse: Home Health Nurse: Social Service [...] of the group. Pt shared with group Nixon summer interests. Showed progress in session goals. [...] APRN CNS - 08/09/2018 1:09 PM CDT [facility] Progress Note Interim History: The patient's [...] experiencing any SI. Pt mentioned to this keno writer / runner that she is having poor experiences with her roommate and claims there is drama between the two girls. Pt requested a room change due to these ongoing issues with her roommate. This keno writer / runner also thought it would be pertinent to mention that today is supposedly the anniversary of this pt's boyfriend's , however when this keno writer / runner checked in with this pt on August [...] in her room alone with her thoughts. Time Cycle Operator suggested that she hang out in the [...] supervision Room Organization independent Cristela Turner APRN DISTRICT BRANCH MANAGER - 08/06/2018 2:17 PM CDT [facility] Psych[facility] Progress Note Interim History: The patient's [...] independent Room Organization independent Cristela Turner APRN DISTRICT BRANCH MANAGER - 08/05/2018 4:07 PM CDT [facility] Psych[facility] Progress Note Interim History: The patient's [...] APRN CNS - 08/04/2018 6:36 PM CDT [facility] Progress Note Interim History: The patient's [...] unable/unwilling to sign: Signature: Date: Time: Discharge: [facility] has returned all of my personal belongings: Signature: Date: Time: Staff Signature: Date: Time: documented in this encounter H&P Notes Cristela Turner APRN DISTRICT BRANCH MANAGER - 08/03/2018 1:52 PM CDT Admitted: 08/03/2018 [...] The patient is a full-time student at [employer]; she is a sophomore. The patient reports that she works part-time at [employer] in [place]. MEDICAL REVIEW OF SYSTEMS: We reviewed documentation [...] Mother agrees with plan. CRISTELA TURNER APRN, DISTRICT BRANCH MANAGER MT: LEIDY Name: KERA FIGUEROA MRN: [id number] Account: [id number] : 2000 Admitted: 08/03/2018 Document: [id number] documented in this encounter Miscellaneous Notes Plan [...] cooperative. Pt was open with peers and keno writer / runner in group about meaning and purpose around [...] about herself. Plan of Care - Clifton Santa RN - 08/11/2018 11:20 AM CDT 48 [...] DISCUSSION Participants: 4A Provider: Cristela Turner APRN, DISTRICT BRANCH MANAGER; 4A RN's: Cecelia Brito RN; 4A CTC's: [...] year old pt admitted to 4A from [facility] ED for self injurious behavior. Patient is [...] This is patients first hospitalization. 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 She is studying elementary education. Patient's father [...] Signature TSH 3.27 0.40 - 4.00 08/05/2018 [facility] mU/L 10:12 AM CDT [facility] Specimen Anatomical Collection Method Collection Time Receive d Time (Source) Location / / Volume Laterality Blood specimen 08/05/2018 9:02 AM 019 9:08 (specimen) CDT AM CDT Cristela Turner APRN DISTRICT BRANCH MANAGER LAB - BLOOD ORDERABLES Performing Organization Address City/State/ZIP Code Phon e Number [facility] [address] [place] [address] [facility] Lipid panel reflex to direct LDL (08/05/2018 9:02 AM CDT) [facility] Method Time Signature Cholesterol 164 <200 mg/dL 08/05/2018 [facility] 10:05 AM CDT [facility] Triglycerides 134 <150 mg/dL 08/05/2018 [facility] 10:05 AM CDT [facility] HDL Cholesterol 57 >49 mg/dL 08/05/2018 [facility] 10:05 AM T [facility] LDL Cholesterol 80 <100 mg/dL 08/05/2018 [facility] O F Calculated 10:05 AM CDT [facility] Comment: Desirable: <100 mg/dl Non HDL Cholesterol 107 <130 mg/dL 08/05/2018 10:05 AM CDT [facility] Specimen Anatomical Collection Method Collection Time Receive d Time (Source) Location / / Volume Laterality Blood specimen 08/05/2018 9:02 AM 019 9:08 (specimen) CDT AM CDT Cristela Turner TORREY DISTRICT BRANCH MANAGER LAB - BLOOD ORDERABLES Performing Organization Address City/State/ZIP Code Phon e Number [facility] [address] [place] [address] [facility] CBC with platelets differential (08/05/2018 9:02 AM CDT) [facility] gist Method Time Signature WBC 5.2 4.0 - 08/05/2018 [facility] 11.0 9:39 AM CDT [facility] 10e9/L [facility] RBC Count 5.09 3.8 - 5.2 08/05/2018 [facility] 10e12/L 9:39 AM CDT [facility] Hemoglobin 14.4 11.7 - 08/05/2018 [facility] 15.7 g/dL 9:39 AM CDT [facility] Hematocrit 44.1 35.0 - 08/05/2018 [facility] 47.0 % 9:39 AM CDT [facility] MCV 87 78 - 100 08/05/2018 [facility] fl 9:39 AM CDT [facility] MCH 28.3 26.5 - 08/05/2018 [facility] 33.0 pg 9:39 AM CDT [facility] MCHC 32.7 31.5 - 08/05/2018 [facility] 36.5 g/dL 9:39 AM CDT [facility] RDW 12.3 10.0 - 08/05/2018 [facility] 15.0 % 9:39 AM CDT [facility] Platelet Count 276 150 - 450 08/05/2018 [facility] 10e9/L 9:39 AM CDT [facility] Diff Method Automated 08/05/2018 [facility] Method 9:39 AM CDT [facility] % Neutrophils 48.8 % 08/05/2018 [facility] 9:39 AM CDT [facility] % Lymphocytes 37.1 % 08/05/2018 [facility] 9:39 AM CDT [facility] % Monocytes 7.9 % 08/05/2018 [facility] 9:39 AM CDT [facility] % Eosinophils 5.6 % 08/05/2018 [facility] 9:39 AM CDT [facility] % Basophils 0.4 % 08/05/2018 [facility] 9:39 AM CDT [facility] % Immature 0.2 % 08/05/2018 [facility] Granulocytes 9:39 AM CDT [facility] Nucleated RBCs 0 0 /100 08/05/2018 [facility] 9:39 AM CDT [facility] Absolute 2.5 1.6 - 8.3 08/05/2018 [facility] Neutrophil 10e9/L 9:39 AM CDT [facility] Absolute 1.9 0.8 - 5.3 08/05/2018 [facility] Lymphocytes 10e9/L 9:39 AM CDT [facility] Absolute 0.4 0.0 - 1.3 08/05/2018 [facility] Monocytes 10e9/L 9:39 AM CDT [facility] Absolute 0.3 0.0 - 0.7 08/05/2018 [facility] Eosinophils 10e9/L 9:39 AM CDT [facility] Absolute 0.0 0.0 - 0.2 08/05/2018 [facility] Basophils 10e9/L 9:39 AM CDT [facility] Abs Immature 0.0 0 - 0.4 08/05/2018 [facility] Granulocytes 10e9/L 9:39 AM CDT [facility] Absolute 0.0 08/05/2018 [facility] Nucleated RBC 9:39 AM CDT [facility] Specimen Anatomical Collection Method Collection Time Receive d Time (Source) Location / / Volume Laterality Blood specimen 08/05/2018 9:02 AM 019 9:08 (specimen) CDT AM CDT Cristela Turner APRN DISTRICT BRANCH MANAGER LAB - BLOOD ORDERABLES Performing Organization Address City/State/ZIP Code Phon e Number [facility] [address] [place] [address] [facility] [place] Comprehensive metabolic panel (08/05/2018 9:02 AM CDT) P athologist Signature Sodium 141 133 - 144 08/05/2018 [facility] mmol/L 9:46 AM CDT [facility] Potassium 4.1 3.4 - 5.3 08/05/2018 [facility] mmol/L 9:46 AM CDT [facility] Chloride 107 94 - 109 08/05/2018 [facility] mmol/L 9:46 AM [facility] Carbon Dioxide 24 20 - 32 08/05/2018 [facility] mmol/L 10:05 AM [facility] Anion Gap 10 3 - 14 08/05/2018 [facility] mmol/L 10:05 AM [facility] Glucose 80 70 - 99 08/05/2018 [facility] mg/dL 10:05 AM [facility] Urea Nitrogen 11 7 - 30 08/05/2018 [facility] mg/dL 10:05 AM [facility] Creatinine 0.84 0.52 - 08/05/2018 [facility] 1.04 mg/dL 10:05 AM [facility] GFR Estimate >90 >60 08/05/2018 [facility] mL/min/{1. 10:05 AM [facility] 73_m2} [facility] Comment: Non GFR Calc Starting 2018, serum creatinine ba sed estimated GFR (eGFR) will be calculated using the Chronic Kidney Dise [facility] Epidemiology Collaboration (CKD-EPI) equation. GFR Estimate If >90 >60 mL/min/{1.73_m2} 08/05/2018 10 :05 AM [facility] Comment: GFR Calc Starting 2018, serum creatinine ba sed estimated GFR (eGFR) will be calculated using the Chronic Kidney Dise [facility] Epidemiology Collaboration (CKD-EPI) equation. Calcium 8.7 8.5 - 10.1 08/05/2018 10:05 AM [facility] [place] [facility] [place] mg/dL [facility] Bilirubin Total 0.2 0.2 - 1.3 08/05/2018 10:05 AM [facility] [place] mg/dL [facility] Albumin 3.3 (L) 3.4 - 5.0 g/dL 08/05/2018 10:05 AM [facility] OF [facility] Protein Total 7.0 6.8 - 8.8 g/dL 08/05/2018 10:05 AM U [facility] Alkaline Phosphatase 82 40 - 150 U/L 08/05/2018 10:05 AM [facility] ALT 9 0 - 50 U/L 08/05/2018 10:05 AM [facility] B[facility] AST 13 0 - 45 U/L 08/05/2018 10:[address] [facility] Specimen Anatomical Collection Method Collection Time Receive d Time (Source) Location / / Volume Laterality Blood specimen 08/05/2018 9:02 AM 019 9:08 (specimen) CDT AM CDT Cristela Lala Yue [place] DISTRICT BRANCH MANAGER LAB - BLOOD ORDERABLES Performing Organization Address City/State/ZIP Code Phon e Number [facility] [address] [place] [address] [facility] documented in this encounter Visit Diagnoses Diagnosis [...] portion.
documented in this encounter Care Teams Associate Sales Relationship Specialty Start Date End Date [facility] And PCP - General 08/02/18 [facility] [address] [place] [address] documented as of this encounter
--- OUTSIDE RECORDS SUMMARY | 2022-01-29 08:53 | XMS_ITS | Clinical Summary ---
:2000 Author Organization [place] Address [address] [place] [address]. [place] [address] Care Team Providers Name Role Phone [facility] Provi melonie Clinics- [...] Advance Directives For more information, please contact: [phone] Latest Code Status on File Code Status Date Activated Date Inactivated Comments Full Code 08/03/2018 10:33 AM 08/12/2018 3:19 PM Code status determined by: Discussion with patient/legal dec ision maker Care Teams Warehouse Associate Relationship Specialty Start Date End Date [facility] And PCP - General 08/02/18 [facility]- [address] [place] [address]
--- OUTSIDE RECORDS SUMMARY | 2022-01-29 08:53 | XMS_ITS | Encounter Summary ---
:2000 Author Organization [place] Address [address] [place] [address]. [place] [address] Care Team Providers Name Role Phone [facility] Provi melonie Clinics- [...] on filedocumented in this encounter Care Teams Mine Expert Relationship Specialty Start Date End Date [facility] And PCP - General 08/02/18 [facility] [address] [place] [address] documented as of this encounter
--- OUTSIDE RECORDS SUMMARY | 2022-01-29 08:53 | XMS_ITS | Encounter Summary ---
:2000 Author Organization [facility] Address [address] [address] Care Team Providers Name Role Phone Deanna Kimble MD Primary Care Provider Encounter Details Date Type Department Care Team Description 06/16/2017 Lab Visit Kenan Senazuri orellana Laboratory Chronic urticaria; [address], [address] Food intolerance [place], [place] [id number] Social History Tobacco Use Types Packs/Day Years [...] thyroid disease. All other screening labs unremarkable. P RANCHER documented in this encounter Plan of Treatment Not on filedocumented as of this encounter Procedures Procedure Name Priority Date/Time Associated Diagnosis Comme nts TRYPTASE TOTAL Routine 06/16/2017 3:14 PM Chronic urtic aria Results for this SHEEP RANCHER Food intolerance procedure a re in the results section. ALLERGY RESPIRATORY Routine 06/16/2017 3:14 PM Chronic u rticaria Results for this PANEL SHEEP RANCHER Food intolerance procedure a re in the results section. ANTI IGE RECEPTOR Routine 06/16/2017 3:14 PM Chronic urt icaria Results for this ANTIBODY SHEEP RANCHER Food intolerance procedure a re in the results section. IGE, BLUE MUSSEL Routine 06/16/2017 3:14 PM Chronic urti caria Results for this (F37) SHEEP RANCHER Food intolerance procedure a re in the results section. IGE, SHRIMP (F24) Routine 06/16/2017 3:14 PM Chronic urt icaria Results for this SHEEP RANCHER Food intolerance procedure a re in the results section. IGE, LOBSTER (F80) Routine 06/16/2017 3:14 PM Chronic ur ticaria Results for this SHEEP RANCHER Food intolerance procedure a re in the results section. IGE, CRAB (F23) Routine 06/16/2017 3:14 PM Chronic urtic aria Results for this SHEEP RANCHER Food intolerance procedure a re in the results section. COMPLETE BLOOD Routine 06/16/2017 3:14 PM Chronic urtic aria Results for this COUNT-W/DIFF SHEEP RANCHER Food intolerance procedure a re in the results section. COMP METABOLIC PANEL Routine 06/16/2017 3:14 PM Chronic urticaria Results for this SHEEP RANCHER Food intolerance procedure a re in the results section. ANTITHYROID Routine 06/16/2017 3:14 PM Chronic urtic aria Results for this PEROXIDASE SHEEP RANCHER Food intolerance procedure a re in the results section. IGE TOTAL Routine 06/16/2017 3:14 PM Chronic urtic aria Results for this SHEEP RANCHER Food intolerance procedure a re in the results section. TSH, SENSITIVE (WITH Routine 06/16/2017 3:14 PM Chronic urticaria Results for this REFLEX) SHEEP RANCHER Food intolerance procedure a re in the results section. documented in this encounter Results IgE Total (06/16/2017 3:14 PM SHEEP RANCHER) P athologist Signature IgE,Total 23.5 0 - 126.9 [facility] ku/L Specimen Anatomical Collection Method Collection Time Receive d Time (Source) Location / / Volume Laterality 06/16/2017 3:14 PM 8 3:23 SHEEP RANCHER PM SHEEP RANCHER Narrative [facility] - 06/18/2017 11:35 AM SHEEP RANCHER Performed at [facility], [address] ??[id number] Darlene Sanches MD LAB_1 Performing Organization Address City/State/ZIP Code Phon e Number [facility] [phone] IgE, Blue Mussel (F37) (06/16/2017 3:14 PM SHEEP RANCHER) athologist Signature IgE,Blue <0.35 <0.35 kU/L [facility] Mussel kU/L [facility] Comment: Class = 0 Specimen Anatomical Collection Method Collection Time Receive d Time (Source) Location / / Volume Laterality 06/16/2017 3:14 PM 8 3:23 SHEEP RANCHER PM SHEEP RANCHER Narrative [facility] - 06/18/2017 11:35 AM SHEEP RANCHER Performed at [address] ??[phone] Darlene Sanches MD LAB_1 Performing Organization Address City/[facility] Phon e Number [facility] [phone] IgE, Lobster (F80) (06/16/2017 3:14 PM SHEEP RANCHER) [facility] IgE,Lobster, <0.35 <0.35 kU/L [facility] kU/L [facility] Comment: Class = 0 Specimen Anatomical Collection Method Collection Time Receive d Time (Source) Location / / Volume Laterality 06/16/2017 3:14 PM 8 3:23 SHEEP RANCHER PM SHEEP RANCHER Narrative [facility] - 06/18/2017 11:35 AM SHEEP RANCHER Performed at [facility], [address] [place] [phone] Darlene Sanches MD LAB_1 Performing Organization Address City/[facility] Phon e Number [facility] [phone] IgE, Crab (F23) (06/16/2017 3:14 PM SHEEP RANCHER) athologist Signature IgE,Crab, kU/L <0.35 <0.35 kU/L [facility] Comment: Class = 0 Specimen Anatomical Collection Method Collection Time Receive d Time (Source) Location / / Volume Laterality 06/16/2017 3:14 PM 8 3:23 SHEEP RANCHER PM SHEEP RANCHER Narrative [facility] - 06/18/2017 11:35 AM SHEEP RANCHER Performed at [facility], [address] [place] [phone] Darlene Sanches MD LAB_1 Performing Organization Address [facility] Phon e Number [facility] [phone] IgE, Shrimp (F24) (06/16/2017 3:14 PM SHEEP RANCHER) athologist Signature IgE,Shrimp, <0.35 <0.35 kU/L [facility] kU/L [facility] Comment: Class = 0 Specimen Anatomical Collection Method Collection Time Receive d Time (Source) Location / / Volume Laterality 06/16/2017 3:14 PM 8 3:23 SHEEP RANCHER PM SHEEP RANCHER Narrative [facility] - 06/18/2017 11:35 AM SHEEP RANCHER Performed at [facility], [address] [place] [phone] Darlene Sanches MD LAB_1 Performing Organization Address [facility] e Number [facility] [phone] Allergy, Respiratory Panel (06/16/2017 3:14 PM SHEEP RANCHER) athologist Signature IgE,D. <0.35 <0.35 kU/L [facility] farinae, kU/L [facility] Comment: Class = 0 IgE,Cat Dander, kU/ <0.35 <0.35 kU/L [facility] Comment: Class = 0 IgE,Dog Dander, kU/L <0.35 <0.35 kU/L [facility] Comment: Class = 0 IgE, Cockroach, kU/L <0.35 <0.35 kU/L [facility] Comment: Class = 0 IgE,[place]. Grass,kU/L <0.35 <0.35 kU/L [facility] [...] [facility] Comment: Class = 0 IgE,[place], kU/L <0.35 <0.35 kU/L [facility] Comment: Class = 0 IgE,Maple, kU/L <0.35 <0.35 kU/L [facility] Comment: Class = 0 IgE,Com Rag[place],kU/L <0.35 <0.35 kU/L [facility] Comment: Class = 0 IgE,D.pterony., kU/L <0.35 <0.35 kU/L [facility] Comment: Class = 0 IgE,Asp. fumig.,kU/L <0.35 <0.35 kU/L [facility] Comment: Class = 0 IgE,[place], kU/L <0.35 <0.35 kU/L [facility] Comment: Class = 0 IgE, [place] kU/L <0.35 <0.35 kU/L [facility] Comment: Class = 0 Specimen Anatomical Collection Method Collection Time Receive d Time (Source) Location / / Volume Laterality 06/16/2017 3:14 PM 8 3:23 SHEEP RANCHER PM SHEEP RANCHER Narrative [facility] - 06/18/2017 11:35 AM SHEEP RANCHER Performed at [facility], [address] [place] [phone] Darlene Sanches MD LAB_1 Performing Organization Address City/State/ZIP Code Phon e Number [facility] [phone] (ABNORMAL) Comp Metabolic Panel (06/16/2017 3:14 PM SHEEP RANCHER) [facility] Method Time Signature Sodium 139 136 [...] Volume Laterality 06/16/2017 3:14 PM 8 3:23 SHEEP RANCHER PM SHEEP RANCHER Narrative [facility] - 06/16/2017 8:[address] Performed at [facility], [address] [place] [phone] Darlene Sanches MD LAB_1 Performing Organization Address City/State/ZIP Code Phon e Number [facility] [phone] (ABNORMAL) Complete Blood Count-W/Diff (06/16/2017 3:14 PM SHEEP RANCHER) [facility] Method Time Signature WBC 6.0 4.0 [...] [facility] Lymph 34 % [facility] [place] 7 % [facility] Eos 2 % [facility] Baso 0 % [facility] Neutrophil 3.4 1.8 - 8.0 [facility] k/ul [facility] Lymph Absolute 2.1 1.2 - 5.2 [facility] k/ul [facility] [place] Absolute 0.4 0.1 - 0.7 [facility] k/ul [facility] Eos Absolute 0.1 0.0 - 0.5 [facility] k/ul [facility] Baso Absolute 0.0 0.0 - 0.2 [facility] k[facility]ul [facility] Immature Gran 0 % [facility] Imm Gran 0.0 0 k/ul [facility] Specimen Anatomical Collection Method Collection Time Receive d Time (Source) Location / / Volume Laterality 06/16/2017 3:14 PM 8 3:23 SHEEP RANCHER PM SHEEP RANCHER Narrative [facility] - 06/16/2017 8:[address] Performed at [facility], [address] [place] [phone] Darlene Sanches MD LAB_1 Performing Organization Address City/[facility]/ZIP Code Phon e Number [facility] [phone] Tryptase Total (06/16/2017 3:14 PM SHEEP RANCHER) [facility] Method Time Signature Tryptase 4.8 [facility] Reference range: <=10.9 [facility]OR[facility] TORIES Unit: ug/L Tryptase (NOTE) [facility] [address] [place] [address] LABORATORIES [email or web address], Mode Cornell MD, Lab. Director Specimen Anatomical Collection Method Collection Time Receive d Time (Source) Location / / Volume Laterality 06/16/2017 3:14 PM 8 3:24 SHEEP RANCHER PM SHEEP RANCHER Narrative [facility] - 06/17/2017 4:[address] Performed by [employer], [address] [place], [place] [address] Darlene Sanches MD LAB_1 Performing Organization Address City/State/ZIP Code Phon e Number [facility] [phone] Anti IgE Receptor Antibody (06/16/2017 3:14 PM SHEEP RANCHER) Component Value Ref Test Analysis Performed At [facility] Range Method Time Signature IgE Receptor 1.4% [facility] Ab [facility] IgE Receptor (NOTE) [facility] IgE Receptor Antibody LABORATO KRISTY ? Basophils (%), [id number] Reference Range: ??0-12 % ?? Interpretation: No Interpretive commentary necessary. ADDITIONAL INFORMATION ----- Chronic autoimmune urticaria (CIU) may be associated with ?? autoantibodies to the high affinity IgE receptor (Fc-epsilon R1) or ?? to IgE. In the presence of autoantibodies, cross-linking of the ?? Bo-pimlshh-F1 receptor occurs, leading to basophil activatio n. The ?? laboratory tests for the activation of donor basophils by CI U ?? serum by analyzing the expression of the basophil specific ? ? ectoenzyme, [id number]. [id number] is upregulated on the surface of ?? basophils following activation. A positive result is indicat debora of ?? the presence of autoantibodies associated with CIU, but may also be ?? due to other basophil-activating serum factors. Results must be ?? correlated with clinical findings. The reference range was d eveloped ?? by the [facility] es ?? by analyzing 80 healthy control serum samples. ?? This test uses a kit/reagent designated by the clay hoister as for ?? research use, not for clinical use as well as one or more r eagents ?? classified as an analyte specific reagent (ASR). The perform ance ?? characteristics of this test have been validated by [facility] at [facility]. It has no t been ?? [...] clinical laboratory testing. Test performed by: ?? [facility] ?[address] ?[place], [place] ??[phone] Specimen Anatomical Collection Method Collection Time Receive d Time (Source) Location / / Volume Laterality 06/16/2017 3:14 PM 8 3:23 SHEEP RANCHER PM SHEEP RANCHER Darlene Sanches MD LAB_1 Performing Organization Address City/State/ZIP Code Phon e Number [facility] [phone] TSH with Free T4 (if TSH Abnormal) (06/16/2017 3:14 PM SHEEP RANCHER) P athologist Signature TSH, with 2.25 0.30 - [facility] Reflex 4.50 [facility]IES uIU/ml Specimen Anatomical Collection Method Collection Time Receive d Time (Source) Location / / Volume Laterality 06/16/2017 3:14 PM 8 3:23 SHEEP RANCHER PM SHEEP RANCHER Narrative [facility] - 06/16/2017 8:[address] Performed at [facility], [address] [place] [phone] Darlene Sanches MD LAB_1 Performing Organization Address [facility] Code Phon e Number [facility] [phone] (ABNORMAL) Antithyroid Peroxidase (06/16/2017 3:14 PM SHEEP RANCHER) Patholo gist Method Time Signature Thyroperoxidase Ab 62 (H) 0 - 8 [facility] IU/ml [facility] Specimen Anatomical Collection Method Collection Time Receive d Time (Source) Location / / Volume Laterality 06/16/2017 3:14 PM 8 3:23 SHEEP RANCHER PM SHEEP RANCHER Narrative [facility] - 06/18/2017 11:22 AM SHEEP RANCHER Performed at [facility], [address] [place] [phone] Darlene Sanches MD LAB_1 Performing Organization Address City/[facility]/ZIP Code Phon e Number [facility] [phone] documented in this encounter Visit Diagnoses Diagnosis Chronic urticaria Other specified urticaria Food intolerance Other specified intestinal malabsorption documented in this encounter Care Teams Beater Room Helper Relationship Specialty Start Date End Date Deanna Kimble MD PCP - General Family Practice 03/10/17 [address] [place] [address] documented as of this encounter
--- OUTSIDE RECORDS SUMMARY | 2022-01-29 08:53 | XMS_ITS | Encounter Summary ---
:2000 Author Organization [facility] Address [address] [place] [address] Care Team Providers Name Role Phone Deanna Kimble MD Primary Care Provider Reason for Visit Reason Comments DAVID Ching referral Consult/Transfer Care (Routine) - Closed Specialty Diagnoses / Procedures Referred By Contact Refer red To Contact Allergy Diagnoses Urticaria, unspecified Stefan Ching MD Hd Allergy [address] [place] [address] [address] [place] [address] [address] [place] [id number] Fax: Referral ID Status Reason Start Date Expiration Date Visits Requ ested Visits Authorized [id number] Closed 03/02/2017 03/05/2018 1 1 Encounter Details Date Type Department Care Team Description [facility] All[facility] Darlene Wesley MD Food intolerance; [facility], [address] [place] [address] Rhinosinusitis [address] [place] [address] [phone] Social History Tobacco Use Types Packs/Day Years Used Date Smoking Tobacco: Some Days Cigarettes 0.1 3 S tarted: 05/04/2015 Smokeless Tobacco: Never Sex Assigned at Date Recorded Not on file documented as of this encounter Last Filed Vital Signs Vital Sign Reading Time Taken Comments Blood Pressure 110/60 06/16/2017 2:13 PM DISTRIBUTION COLLECTION OPERATOR Pulse 76 06/16/2017 2:13 PM DISTRIBUTION COLLECTION OPERATOR Temperature - - Respiratory Rate - - Oxygen Saturation 99% 06/16/2017 2:13 PM DISTRIBUTION COLLECTION OPERATOR Inhaled Oxygen Concentration - - Weight 64.4 kg (142 lb) 06/16/2017 2:13 PM DISTRIBUTION COLLECTION OPERATOR Height 165.1 cm (5' 5) 06/16/2017 2:13 PM DISTRIBUTION COLLECTION OPERATOR Body Mass Index 23.63 06/16/2017 2:13 PM DISTRIBUTION COLLECTION OPERATOR documented in this encounter Patient Instructions Patient InstructionsDarlene Russo MD - 06/16/2017 2:15 PM DISTRIBUTION COLLECTION OPERATOR Dust mite avoidance: Specifically covers for your [...] to increase to twice daily Labs today RIBUTION COLLECTION OPERATOR documented in this encounter Progress Notes Darlene [...] Nurse LEIGHANN PERKINS ALLERGY SKIN TESTS - ID TOCONTROLPRICK 0 ALLERGY SKIN TESTS - ID BOTTOMCONTROL 0 ALLERGY SKIN TESTS - ID HISTAMINE 5/50 ANIMAL - CAT 0 ANIMAL [...] WEED - GIANT RAGWEED 0 WEED - MACANESE THISTLE 0 WEED - PIGWEED 0 WEED - PLANTAIN 0 TREE - HARD SUGAR MAPLE 0 TREE - SYRIAN ELM 0 TREE - [place] 0 TREE [...] Darlene Sanches MD 06/16/2017, 2:15 PM e. RIBUTION COLLECTION OPERATOR documented in this encounter Plan of Treatment Not on filedocumented as of this encounter Results IgE Total (06/16/2017 3:14 PM DISTRIBUTION COLLECTION OPERATOR) athologist Signature IgE,Total 23.5 0 - 126.9 [facility] ku/L Specimen Anatomical Collection Method Collection Time Receive d Time (Source) Location / / Volume Laterality 06/16/2017 3:14 PM 8 3:23 DISTRIBUTION COLLECTION OPERATOR PM DISTRIBUTION COLLECTION OPERATOR Narrative [facility] - 06/18/2017 11:35 AM DISTRIBUTION COLLECTION OPERATOR Performed at [facility], [address] [place] [address] ??[phone] Darlene Sanches MD LAB_1 Performing Organization Address City/[facility] Phon e Number [facility] [phone] IgE, Blue Mussel (F37) (06/16/2017 3:14 PM DISTRIBUTION COLLECTION OPERATOR) P athologist Signature IgE,Blue <0.35 <0.35 kU/L [facility] Mussel kU/L [facility] Comment: Class = 0 Specimen Anatomical Collection Method Collection Time Receive d Time (Source) Location / / Volume Laterality 06/16/2017 3:14 PM 8 3:23 DISTRIBUTION COLLECTION OPERATOR PM DISTRIBUTION COLLECTION OPERATOR Narrative [facility] - 06/18/2017 11:35 AM DISTRIBUTION COLLECTION OPERATOR Performed at [facility], [address] [place] [address] ??[phone] Darlene Sanches MD LAB_1 Performing Organization Address [facility] Phon e Number [facility] [phone] IgE, Lobster ([id number]) (06/16/2017 3:14 PM DISTRIBUTION COLLECTION OPERATOR) P athologist Signature IgE,Lobster, <0.35 <0.35 kU/L [facility] Comment: Class = 0 Specimen Anatomical Collection Method Collection Time Receive d Time (Source) Location / / Volume Laterality 06/16/2017 3:14 PM 8 3:23 DISTRIBUTION COLLECTION OPERATOR PM DISTRIBUTION COLLECTION OPERATOR Narrative [facility] - 06/18/2017 11:35 AM DISTRIBUTION COLLECTION OPERATOR Performed at [facility], [address] [place] [address] ??[phone] Darlene Sanches MD LAB_1 Performing Organization Address City/[facility] [address]/ZIP Code Phon e Number [facility] [phone] IgE, Crab (F23) (06/16/2017 3:14 PM DISTRIBUTION COLLECTION OPERATOR) athologist Signature IgE,Crab, kU/L <0.35 <0.35 kU/L [facility] Comment: Class = 0 Specimen Anatomical Collection Method Collection Time Receive d Time (Source) Location / / Volume Laterality 06/16/2017 3:14 PM 8 3:23 DISTRIBUTION COLLECTION OPERATOR PM DISTRIBUTION COLLECTION OPERATOR Narrative [facility] - 06/18/2017 11:35 AM DISTRIBUTION COLLECTION OPERATOR Performed at [address] ??[phone] Darlene Sanches MD LAB_1 Performing Organization Address City/[facility] [address]/ZIP [facility] Phon e Number [facility] [phone] IgE, Shrimp (F24) (06/16/2017 3:14 PM DISTRIBUTION COLLECTION OPERATOR) athologist Signature IgE,Shrimp, <0.35 <0.35 kU/L [facility] Comment: Class = 0 Specimen Anatomical Collection Method Collection Time Receive d Time (Source) Location / / Volume Laterality 06/16/2017 3:14 PM 8 3:23 DISTRIBUTION COLLECTION OPERATOR PM DISTRIBUTION COLLECTION OPERATOR Narrative [facility] - 06/18/2017 11:35 AM DISTRIBUTION COLLECTION OPERATOR Performed at [facility], [address] [place] [address] ??[phone] Darlene Sanches MD LAB_1 Performing Organization Address City/State/ZIP Code Phon e Number [facility] [phone] Allergy, Respiratory Panel (06/16/2017 3:14 PM DISTRIBUTION COLLECTION OPERATOR) athologist Signature IgE,D. <0.35 <0.35 kU/L [facility] farinae, kU/L [facility] Comment: Class = 0 IgE,Cat Dander, kU/ <0.35 <0.35 kU/L [facility] Comment: Class = 0 IgE,Dog Dander, kU/L <0.35 <0.35 kU/L [facility] Comment: Class = 0 IgE, Cockroach, kU/L <0.35 <0.35 kU/L [facility] Comment: Class = 0 IgE,Avon. Grass,kU/L <0.35 <0.35 kU/L [facility] [...] [facility] Comment: Class = 0 IgE,[place], kU/L <0.35 <0.35 kU/L [facility] Comment: Class = 0 IgE,Maple, kU/L <0.35 <0.35 kU/L [facility] Comment: Class = 0 IgE,Com Ragweed,kU/L <0.35 <0.35 kU/L [facility] Comment: Class = 0 IgE,D.pterony., kU/L <0.35 <0.35 kU/L [facility] Comment: Class = 0 IgE,Asp. fumig.,kU/L <0.35 <0.35 kU/L [facility] Comment: Class = 0 IgE,Morton, kU/L <0.35 <0.35 kU/L [facility] Comment: Class = 0 IgE, White Boby kU/L <0.35 <0.35 kU/L [facility] Comment: Class = 0 Specimen Anatomical Collection Method Collection Time Receive d Time (Source) Location / / Volume Laterality 06/16/2017 3:14 PM 8 3:23 DISTRIBUTION COLLECTION OPERATOR PM DISTRIBUTION COLLECTION OPERATOR Narrative [facility] - 06/18/2017 11:35 AM DISTRIBUTION COLLECTION OPERATOR Performed at [facility], [address] [place] [address] ??[phone] Darlene Sanches MD LAB_1 Performing Organization Address City/State/ZIP Code Phon e Number [facility] [phone] (ABNORMAL) Comp Metabolic Panel (06/16/2017 3:14 PM DISTRIBUTION COLLECTION OPERATOR) [facility] Method Time Signature Sodium 139 136 [...] Volume Laterality 06/16/2017 3:14 PM 8 3:23 DISTRIBUTION COLLECTION OPERATOR PM DISTRIBUTION COLLECTION OPERATOR Narrative [facility] - 06/16/2017 8:[address] Performed at [facility], [address] [place] [address] ??[phone] Darlene Sanches MD LAB_1 Performing Organization Address City/[facility]/ZIP Code Phon e Number [facility] [phone] (ABNORMAL) Complete Blood Count-W/Diff (06/16/2017 3:14 PM DISTRIBUTION COLLECTION OPERATOR) [facility] Method Time Signature WBC 6.0 4.0 [...] [facility] Lymph 34 % [facility] [place] 7 % [facility] Eos 2 % [facility] Baso 0 % [facility] Neutrophil 3.4 1.8 - 8.0 [facility] k/ul [facility] Lymph Absolute 2.1 1.2 - 5.2 [facility] k[facility]ul [facility] [place] Absolute 0.4 0.1 - 0.7 [facility] k/ul [facility] Eos Absolute 0.1 0.0 - 0.5 [facility] k/ul [facility] Baso Absolute 0.0 0.0 - 0.2 [facility] k/ul [facility] Immature Gran 0 % [facility] Imm Gran 0.0 0 k/ul [facility] Specimen Anatomical Collection Method Collection Time Receive d Time (Source) Location / / Volume Laterality 06/16/2017 3:14 PM 8 3:23 DISTRIBUTION COLLECTION OPERATOR PM DISTRIBUTION COLLECTION OPERATOR Narrative [facility] - 06/16/2017 8:[address] Performed at [facility], [address] [place] [address] ??[phone] Darlene Sanches MD LAB_1 Performing Organization Address City/State/ZIP Code Phon e Number [facility] [phone] Tryptase Total (06/16/2017 3:14 PM DISTRIBUTION COLLECTION OPERATOR) [facility] Method Time Signature Tryptase 4.8 [facility] Level Reference range: <=10.9 [facility]OR[facility] TORIES Unit: ug/L Tryptase (NOTE) [facility] Level [address] [place] [address] LABORATORIES [email or web address], Mode Cornell MD, Lab. Director Specimen Anatomical Collection Method Collection Time Receive d Time (Source) Location / / Volume Laterality 06/16/2017 3:14 PM 8 3:24 DISTRIBUTION COLLECTION OPERATOR PM DISTRIBUTION COLLECTION OPERATOR Narrative [facility] - 06/17/2017 4:[address] Performed by [employer], [address] [place], [place] [address] Darlene Sanches MD LAB_1 Performing Organization Address City/State/ZIP Code Phon e Number [facility] [phone] Anti IgE Receptor Antibody (06/16/2017 3:14 PM DISTRIBUTION COLLECTION OPERATOR) Component Value Ref Test Analysis Performed At [facility] Range Method Time Signature IgE Receptor 1.4% [facility] IgE Receptor (NOTE) [facility] IgE Receptor Antibody LABORATO KRISTY ? Basophils (%), [id number] Reference Range: ??0-12 % ?? Interpretation: No Interpretive commentary necessary. ADDITIONAL INFORMATION ----- Chronic autoimmune urticaria (CIU) may be associated with ?? autoantibodies to the high affinity IgE receptor (Fc-epsilon R1) or ?? to IgE. In the presence of autoantibodies, cross-linking of the ?? Qd-hnvakeh-V2 receptor occurs, leading to basophil activatio n. The ?? laboratory tests for the activation of donor basophils by CI U ?? serum by analyzing the expression of the basophil specific ? ? ectoenzyme, [id number]. VX124q is upregulated on the surface of ?? basophils following activation. A positive result is indicat debora of ?? the presence of autoantibodies associated with CIU, but may also be ?? due to other basophil-activating serum factors. Results must be ?? correlated with clinical findings. The reference range was d eveloped ?? by the [facility] es ?? by analyzing 80 healthy control serum samples. ?? This test uses a kit/reagent designated by the supervisor extruding department as for ?? research use, not for clinical use as well as one or more r eagents ?? classified as an analyte specific reagent (ASR). The perform ance ?? characteristics of this test have been validated by [facility] at [facility]. It has no t been ?? [...] clinical laboratory testing. Test performed by: ?? [facility] ?[address] [facility] ?[place], [place] ??[address] Specimen Anatomical Collection Method Collection Time Receive d Time (Source) Location / / Volume Laterality 06/16/2017 3:14 PM 8 3:23 DISTRIBUTION COLLECTION OPERATOR PM DISTRIBUTION COLLECTION OPERATOR Darlene Sanches MD LAB_1 Performing Organization Address City/State/ZIP Code Phon e Number [facility] [phone] TSH with Free T4 (if TSH Abnormal) (06/16/2017 3:14 PM DISTRIBUTION COLLECTION OPERATOR) athologist Signature TSH, with 2.25 0.30 - [facility] Reflex 4.50 [facility]ATORIES uIU/ml Specimen Anatomical Collection Method Collection Time Receive d Time (Source) Location / / Volume Laterality 06/16/2017 3:14 PM 8 3:23 DISTRIBUTION COLLECTION OPERATOR PM DISTRIBUTION COLLECTION OPERATOR Narrative [facility] - 06/16/2017 8:[address] Performed at [facility], [address] [place] [address] ??[phone] Darlene Sanches MD LAB_1 Performing Organization Address City/State/ZIP Code Phon e Number [facility] [phone] (ABNORMAL) Antithyroid Peroxidase (06/16/2017 3:14 PM DISTRIBUTION COLLECTION OPERATOR) Patholo gist Method Time Signature Thyroperoxidase Ab 62 (H) 0 - 8 [facility] IU/ml [facility] Specimen Anatomical Collection Method Collection Time Receive d Time (Source) Location / / Volume Laterality 06/16/2017 3:14 PM 8 3:23 DISTRIBUTION COLLECTION OPERATOR PM DISTRIBUTION COLLECTION OPERATOR Narrative [facility] - 06/18/2017 11:22 AM DISTRIBUTION COLLECTION OPERATOR Performed at [facility], [address] ??[phone] Darlene Sanches MD LAB_1 Performing Organization Address City/State/[facility] Code Phon e Number [facility] [phone] documented in this encounter Visit Diagnoses Diagnosis Chronic urticaria - Primary Other specified urticaria Food intolerance Other specified intestinal malabsorption Rhinosinusitis Unspecified sinusitis (chronic) Chronic urticaria Other specified urticaria Food intolerance Other specified intestinal malabsorption documented in this encounter Care Teams Svp Research And Strategic Analysis Relationship Specialty Start Date End Date Deanna Kimble MD PCP - General Family Practice 03/10/[address] [place] [address] documented as of this encounter
--- OUTSIDE RECORDS SUMMARY | 2022-01-29 08:53 | XMS_ITS | Encounter Summary ---
:2000 Author Organization [place] Address [facility] [place] [address] Care Team Providers Name Role Phone [facility] melonie Clinics- Reason for Visit Reason Onset Date Comments MH/CD Inpatient 08/02/2018 Encounter Details Date Type Department Care Team Description 08/02/2018 Telephone Health [place] Generic, Behavioral MH/ CD Inpatient Behavioral Health In [facility] MD Johnson [address] [place] [phone] Social History Tobacco Use Types Packs/Day [...] and inability to contract for safety reportby Oriana B: Pt reports he father completed suicide [...] No reported medical concerns or cd issues. Stockroom Attendant reports pt is able to ambulate independently. A: vol R: 4a / Sheyla Root Accepted by Dr. Mejia documented in this encounter Plan of Treatment Not on filedocumented as of this encounter Visit Diagnoses Not on filedocumented in this encounter Care Teams Brush Material Preparer Relationship Specialty Start Date End Date [facility] And PCP - General 08/02/18 [facility]- [address] [address] documented as of this encounter
--- OUTSIDE RECORDS SUMMARY | 2022-01-29 08:53 | XMS_ITS | Encounter Summary ---
:2000 Author Organization [place] Address [facility] [address] Care Team Providers Name Role Phone [facility] Provi melonie Clinics- Reason for Visit Reason Comments Suicidal Pt reports she has been havi ng thoughts of self harm since Thursday with no plan, pt states she does not feel safe at home. Encounter Details Date Type Department Care Team Description 08/02/2018 - [facility] [address] [place] [address] Depression, 08/03/2018 [facility], Dawit Doyle MD [facility] [address] [facility] [address] [place], [place] [address] unspecified Dept Darlene Rojas MD [facility] [address] [place] [address] depression type [address] [facility] Chuy Medeiros MD [facility] [address] [place] [address] [place], [place] [address] [place] [phone] Social History Tobacco Use Types Packs/Day Years [...] AM CDT Attempted to give report to [place] station 4A. I was told the nurses are in report. They are notavailable until 8am. Erika Rouse RN - 08/02/2018 11:10 PM CDT Attempted to give report to 4A @ [phone]. Was told by Pat who answered the phone that the pt should not come until day shift. Pt has bed under Dr Carrion. Adilene Hyatt LICSW - 08/02/2018 5:29 PM CDT DEC completed assessment. Pt is recommended IP and Central intake was notified. ED will be contactedwhen placement can be arranged. CORRY Leone LICSW DEC Composite Layup Worker Erika Rouse RN - 08/02/2018 5:26 PM [...] at night. 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 RI interval 134 ms. QRS duration 84 ms. [...] but no suicide ideation. Voluntary. Awaiting Bed. TUNNEL MAN meds given (lamictal, citalopram) - Has bed at [facility] in AM Dawit Whelan MD Emergency Physicians [...] for the 08/02/2018 admission is complete. See [facility] admission navigator for prior to admission medications Medication history source reliability:Good Actions taken by pharmacist (provider contacted, etc): d/w patient, reviewed SureScripts to verify doses Additional medication history information not noted on T[facility] MAN med list :None Medication reconciliation/reorder completed by [...] Time Signature Amphetamine Qual Negative NEG^Negati 08/02/2018 [place] Urine ve 8:06 PM [facility] Comment: Cutoff for a negative amphetami ne is 500 ng/mL or less. Barbiturates Qual Negative NEG^Negative 08/02/2018 8:06 PM [facility] Comment: Cutoff for a negative barbitura te is 200 ng/mL or less. Benzodiazepine Qual Negative NEG^Negative 08/02/2018 8:06 P M [place] Urine [facility] Comment: Cutoff for a negative benzodiaz epine is 200 ng/mL or less. Cannabinoids Qual Negative NEG^Negative 08/02/2018 8:06 PM [facility] Comment: Cutoff for a negative cannabino id is 50 ng/mL or less. Cocaine Qual Urine Negative NEG^Negative 08/02/2018 8:06 PM [facility] Comment: Cutoff for a negative cocaine i s 300 ng/mL or less. Opiates Qualitative Negative NEG^Negative 08/02/2018 8:0 6 PM [facility] Comment: Cutoff for a negative opiate is 300 ng/mL or less. PCP Qual Urine Negative NEG^Negative 08/02/2018 8:06 PM [facility] Comment: Cutoff for a negative PCP is 25 ng/mL or less. Specimen Anatomical Collection Method Collection Time Receive d Time (Source) Location / / Volume Laterality Urine specimen URINE SPECIMEN 08/02/2018 7:33 PM 08/02 7:48 (specimen) OBTAINED BY CLEAN CDT PM CDT CATCH PROCEDURE / Unknown Nicky Cali MD LAB - URINE ORDERABLES Performing Organization Address City/State/ZIP Code Phon e Number [facility] [address] [place] [address] [facility] [address] [place] [address], U [phone] EKG 12 lead (08/02/2018 5:19 PM CDT) [facility] gist Method Time Signature Interpretation ECG [...] sleep. documented in this encounter Care Teams Induction Brazer Relationship Specialty Start Date End Date [facility] And PCP - General 08/02/18 [facility]- [address] [place], [place] [phone] documented as of this encounter
--- OUTSIDE RECORDS SUMMARY | 2022-01-29 08:53 | XMS_ITS | Encounter Summary ---
:2000 Author Organization [facility] Address [address] [place] [address]. [place] [address] Care Team Providers Name Role Phone Unavailable [...] Sharmin Bliss - 04/12/2013 9:54 PM CST [facility] Triage Call Report Patient Name: Anne Marie Jones Call Date & Time: 04/12/2013 7:03:41PM Patient PCP Name: Patient Address: [address] [place] [address] [place] [address] Patient Date of : 2000 Age: 12 yr. Patient Gender: Female Sharepoint Web Developer Name: Emili Jaime Presenting Problem: Mom calling. Pt usually [facility]. Was seen in a [facility] on [...] sputum. No SOB, wheezing, edema. Triage Note: Sharepoint Web Developer Emili Jaime added this note on Apr [...] Medication Note: Allergy: Reaction: Procedure: Procedure Note: SAW OPERATOR documented in this encounter Plan of Treatment Not on filedocumented as of this encounter Visit Diagnoses Not on filedocumented in this encounter
--- OUTSIDE RECORDS SUMMARY | 2022-01-29 08:53 | XMS_ITS | Encounter Summary ---
:2000 Author Organization [facility] Address [address] [place] [address] Care Team Providers Name Role Phone Unavailable Primary Care Provider Unavailable Reason for Visit Reason Onset Date Comments Outpatient COVID-19 Testing 03/08/2020 Encounter Details Date Type Department Care Team Description 03/08/2020 External Outreach Department of [facility], In [facility] ([facility] [place] C.N.P., D.N.P. Dx) [address] [facility] [address] [place] [address] [place], [place] [phone] [address] Social History Tobacco Use Types Packs/Day Years Used Date Smoking Tobacco: Never Sex Assigned at Date Recorded Not on file documented as of this encounter Progress Notes Keily Boss RNanyN. - 03/08/2020 9:57 AM CST Encounter created for the drive-through COVID-19 testing. MOTIVE BOILERMAKER documented in this encounter Plan of Treatment Not on filedocumented as of this encounter Procedures Procedure Name Priority Date/Time Associated Diagnosis Comme nts SARS CORONAVIRUS-2 Routine 03/08/2020 1:34 PM Infection Upper Results for this RNA, V LOCOMOTIVE BOILERMAKER Respiratory procedure are i n the results section. documented in this encounter Results SARS Coronavirus-2 RNA, V Symptomatic (03/08/2020 1:34 PM LOCOMOTIVE BOILERMAKER) [facility] Method Time Signature SARS-CoV-2 Swab, 03/09/2020 MKTO Specimen Nasopharynx 1:30 PM LOCOMOTIVE BOILERMAKER Source SARS CoV-2 Undetected Undetected 03/09/2020 V[place]URA RNA, TMA 1:30 PM LOCOMOTIVE BOILERMAKER Comment: SARS-CoV-2 RNA absent. This result does not rule out COVID-19 in the patient, as the sensitivity of the test depends o n the timing of the specimen collection and the quality of the specim en. Result should be correlated with patient's history and clinical presentat ion. ----ADDITIONAL INFORMATION---- This test is performed using the Aptima SARS-CoV-2 assay ([employer] which has received Emergency Use Authori zation (EUA) by the U.S. Food and Drug Administration. Fact sheets for this Emergency Use Autho rization (EUA) assay can be found at the following links: For Healthcare Providers: https://www.Ikro a.gov/media/793699/download For Patients: https://www.fda.gov/media/ 283090/download Specimen Anatomical Collection Method Collection Time Receive d Time (Source) Location / / Volume Laterality Varies 03/08/2020 1:34 PM 0 5:41 (Nasopharynx) LOCOMOTIVE BOILERMAKER PM LOCOMOTIVE BOILERMAKER Maryjane Plummer APRN.N.P., D.N.P. LAB MICROBIOLOGY - GENERAL ORDERABLES Performing Organization Address City/State/[facility] Code Phon e Number [facility]- [address] [place] [address] [place] [address] System in [address] documented in this encounter Visit Diagnoses Diagnosis Infection Upper Respiratory - Primary documented in this encounter Additional Health Concerns Infection Onset Date Last Indicated Resolved Time COVID19 Pending 03/08/2020 03/08/2020 03/09/2020 1:30 PM LOCOMOTIVE BOILERMAKER documented as of this encounter
--- OUTSIDE RECORDS SUMMARY | 2022-01-29 08:53 | XMS_ITS | Encounter Summary ---
:2000 Author Organization [facility] Address [address] [place] [address] Care Team Providers Name Role Phone Unavailable Primary Care Provider Unavailable Encounter Details Date Type Department Care Team Description 08/30/2020 Orders Only [facility] PCP [facility] Dewey Magallon Jr., M.D. [address] [place] [address] [place] [phone] (Wo rk) Social History Tobacco Use Types Packs/Day Years Used Date Smoking Tobacco: Never Sex Assigned at Date Recorded Not on file documented as of this encounter Plan of Treatment Not on filedocumented as of this encounter Visit Diagnoses Not on filedocumented in this encounter
--- OUTSIDE RECORDS SUMMARY | 2022-01-29 08:54 | XMS_ITS | Encounter Summary ---
:2000 Author Organization [facility] Address [address] [place] [address] Care Team Providers Name Role Phone Unavailable Primary Care Provider Unavailable Encounter Details Date Type Department Care Team Description 03/23/2014 Hospital Encounter HX [facility] CAZURDO GABRIELElisabet Skelton P.A.-C., COREY Social History Tobacco Use Types Packs/Day Years Used Date Smoking Tobacco: Never Assessed Sex Assigned at Date Recorded Not on file documented as of this encounter Last Filed Vital Signs Vital Sign Reading Time Taken Comments Blood Pressure 96/54 03/23/2014 7:06 PM ROUTER TENDER Pulse 84 03/23/2014 7:06 PM ROUTER TENDER Temperature - - Respiratory Rate - - Oxygen Saturation - - Inhaled Oxygen Concentration - - Weight 57.3 kg (126 lb 5.2 oz) 03/23/2014 7:06 PM ROUTER TENDER Height 163.9 cm (5' 4.53) 03/23/2014 7:06 PM ROUTER TENDER Body Mass Index 21.33 03/23/2014 7:06 PM ROUTER TENDER Body Mass Index Percentile 61.28 % 03/23/2014 7:06 PM CS T Growth Chart: CDC (Girls, 2-20 Years) documented in this encounter Progress Notes Shaunna Gregory P.A.-C. - 03/23/2014 5:06 PM CST [id number] HISTORY OF PRESENT ILLNESS She does not have a chief complaint. She is here for a sports physical. The [id number] sports qualifying physical examination form is used. [...] GREGORY PA-C On: 03/24/2014 03:47 PM Source: [facility] MHSDOLBEYNONRADSYS Document Id: [id number] ER TENDER documented in this encounter Miscellaneous Notes Miscellaneous - Shaunna Gregory P.A.-C. - 03/23/2014 7:33 PM CST Ambulatory Patient Summary [facility] - [address] [id number] Visit Information Name: KERA FIGUEROA [facility] Number: [id number] Current Date: 03/23/2014 19:33:23 [...] appointment detail needed. Your Goals/Additional instructions: Source: [facility] POWERmyTips Document Id: [id number] ER TENDER Miscellaneous - Shaunna Gregory P.A.-C. - 03/23/2014 7:33 PM CST Ambulatory Discharge Medication List [facility] Care - [facility] [address] [place] [phone] Visit Information Name: KERA FIGUEROA [facility] Number: [id number] Visit Date: 03/23/2014 19:33:22 [...] Signed By: Signed On: Additional Information: Source: [facility] Ziippi Document Id: [id number] ER TENDER Miscellaneous - Donta Sears C.M.A. - 03/23/2014 7:06 PM CST Pediatric Director Service Intake/History Pediatric Director Service Intake/History Entered On: 03/23/2014 19:13 ROUTER TENDER Performed On: 03/23/2014 19:06 ROUTER TENDER by DONTA SEARS Intake Chief Complaint : [...] : 21.33 kg/m2 DONTA SEARS 03/23/2014 19:06 ROUTER TENDER General Info Languages : [place] Islander Is Patient Female and 13-50 no hysterectomy : Yes Status : Patient denies Are you ? : No DONTA SEARS 03/23/2014 19:06 ROUTER TENDER Subjective Pain Symptoms : No DONTA SEARS 03/23/2014 19:06 ROUTER TENDER Dependent Habits Tobacco Use/Currently Using : No Exposure to Tobacco Smoke : Care provider denies smoking in home Smoking Status : Never smoker DONTA SEARS 03/23/2014 19:06 ROUTER TENDER Recreational Drug Use Grid Drug Use : None DONTA SEARS 03/23/2014 19:06 ROUTER TENDER ID Screen Drug Resistant Organism : No Travel Within Last 21 Days : No DONTA SEARS 03/23/2014 19:06 ROUTER TENDER Source: [facility] InsideCHART Document Id: [id number] ROUTER TENDER!30 ER TENDER documented in this encounter Plan of Treatment Not on filedocumented as of this encounter Visit Diagnoses Not on filedocumented in this encounter
--- OUTSIDE RECORDS SUMMARY | 2022-01-29 08:54 | XMS_ITS | Encounter Summary ---
:2000 Author Organization [facility] Address [address] [place] [address] Care Team Providers Name Role Phone Unavailable Primary Care Provider Unavailable Reason for Visit Reason Comments ALICE Nurse Coleen Encounter Details Date Type Department Care Team Description 03/08/2020 Clinical Communication Division of ALICE [facility] Emma Sarmiento R.N. [facility] [phone] [facility], in (Work) [place], [place] [address] [place] [address] Social History Tobacco Use Types Packs/Day Years Used Date Smoking Tobacco: Never Sex Assigned at Date Recorded Not on file documented as of this encounter Miscellaneous Notes Telephone Encounter - Emma Shukla RJenni - 03/08/2020 9:29 AM MEMBERSHIP DIRECTOR COVID-19 Nurse Line Screening ASSESSMENT COVID 19 [...] to be swabbed for COVID-19, sent to [facility] located at [address] [place] [address]. When you arrive at the site please [...] is negative, you should continue to follow [facility] quarantine recommendations. Contact your primary care team with any new symptoms. Care Points provided: STANDARD PRECAUTIONS FOR ALL PATIENTS: Wash hands often with soap and water for at least 20 seconds, especially after blowing your nose, coughing, sneezing, or having been in a public place. If soap and water aren't available, use a hand plate maker zinc that contains at least 60% alcohol. Avoid [...] since you were tested. Educational Resource: https://www.cdc.gov/coronavirus/2019-ncov/ wgchkau-aeabdwj-xpmp/index.html RECOMMENDATIONS TESTING CRITERIA IS MET: Stay home [...] COVID- 19 test result. Education Resources: https://www.cdc.gov/coronavirus/2019- ncov/pg-yfn-cvu-sick/faslx-qagj-wjdj.html SELF CARE FOR ALL PATIENTS: Take breaks [...] care: Yes The following references were used: [facility] novel coronavirus (COVID- 19) resources Nursing judgement ERSHIP DIRECTOR documented in this encounter Plan of Treatment Not on filedocumented as of this encounter Visit Diagnoses Not on filedocumented in this encounter
--- OUTSIDE RECORDS SUMMARY | 2022-01-29 08:54 | XMS_ITS | Encounter Summary ---
:2000 Author Organization [facility] Address [address] [place] [address] Care Team Providers Name Role Phone Unavailable Primary Care Provider Unavailable Encounter Details Date Type Department Care Team Description 07/28/2012 Hospital Encounter HX [facility] MAQN ED Vitaly Munroe M.D. Social History [...] 07/28/2012 7:10 PM CDT ED Depart Summary [address] [address] Name: KERA FIGUEROA Date of : 2000 12:00 AM Visit Date: 07/28/2012 5:48 PM [facility] Number: [id number] Address: [address] [facility] [address] Primary Care Provider: IMPORTANT: [facility] in [place] would like to thank you for allowing us to assistyou with your healthcare needs. The following includes patient education materials and information regarding your injury/illness. Chief Complaint: Finger injury - Minor; SWOLLEN LITTLE FINGER ON RIGHT HAND Follow-Up Instructions: With: Address: When: Follow up with primary care provider Within 5 - 7 days Comments: Patient Education Materials: [id number] FRACTURE:FINGER [closed] You have a fracture of [...] more cold, blue, numb or tingly ?? 5619-4807 [employer], [address] [place] [address]. All rights reserved. This information is not [...] nurse or physician. Patient Signature or Responsible Republican/Relationship Date Time Provider Signature Date Time Medication [...] nurse or physician. Patient Signature or Responsible Republican/Relationship Date Time Provider Signature Date Time This document has images extracted. Please consider using [employer] for all your patient education needs. [facility] Document Id: [id number] Karon Smith R.N. - 07/28/2012 7:10 PM CDT ED Discharge Instructions [facility] Emergency Department Clinical Discharge Summary PERSON INFORMATION Name KERA FIGUEROA Age 12 Years 2000 12:00 AM Sex Female Language Comoran PCP Marital Status Single Visit Id Visit Reason Finger injury - Minor; SWOLLEN LITTLE FINGER ON RIGHT HAND Specialty Enc Type Emergency Med Service [facility] 07/28/2012 7:00 PM Tracking Id [id number] Checkout 07/28/2012 7:00 PM Checkin 07/28/2012 5:48 PM Acuity 4 -Less Urgent Dispo Type * Discharged to Home or Self Care Arrival 07/28/2012 5:48 PM Reg Status LOS 000 01:12 Address: [address] [place] [id number] Comment: PROVIDER INFORMATION Provider Role Provider Contact Time DIAGNOSIS Closed fracture of the middle phalanx of finger 816.01 Comment: PATIENT EDUCATION INFORMATION Instructions: FRACTURE, Finger [Closed] Follow up: With: Address: When: Follow up with primary care provider Within 5 - 7 days Comments: [facility] Document Id: [id number] documented in this encounter Nursing Notes Conversion, [...] PNED ; Probability: 0 ; Diagnosis Code: [id number] Triage Chief Complaint Description : pt states [...] vehicle, Ambulatory Track : Medical Languages : Comoran Vital Signs Assessed : Yes ROBINSON PETERSON [...] Heart Rhythm : Regular Skin Color : [place] Skin Description : Normal Skin Temperature : [...] PETERSON SARAH - 07/28/2012 17:51 CDT Source: [facility] [employer] Document Id: [id number] documented in this encounter ED Notes Karon Smith R.N. - 07/28/2012 7:00 PM CDT ED Disposition Summary ED Disposition Summary Entered On: 07/28/2012 19:10 CDT Performed On: 07/28/2012 19:00 CDT by KARON SMITH PROGRAM MANAGER TRANSPORTATION Disposition Summary Accompanied By : Mother Mode of Discharge : Ambulatory Transportation : Private vehicle Printed Discharge Instructions Given to Patient : Yes Patient Status at Discharge from ED : Improved KARON SMITH RN - 07/28/2012 19:09 CDT [facility] Document Id: [id number] O Vitaly Mayo M.D. - 07/28/2012 6:37 [...] Present Illness Jammed in volley ball in [facility] ed. Review of Systems Additional review [...] RUIZ MD On: 07/28/2012 06:45 PM Source: [facility] POWERCHART Document Id: [id number]} documented in this encounter Miscellaneous Notes Miscellaneous [...] Control : 5 Lynx Visit Level : 82766 Level 3 KARON SMITH RN - 07/28/2012 19:10 CDT Source: [facility] [employer] NaturalCHART Document Id: [id number] documented in this encounter Plan of Treatment [...]
--- OUTSIDE RECORDS SUMMARY | 2022-01-29 08:54 | XMS_ITS ---
[...] Compcare QL, MISSY+probe, passage) [facility]gent [facility] N[facility] [place]: [address] , [place] 12/06/2020 SARS CoV 2 RNA, Nose (nasal ? Result positive ? ? Compcare QL, MISSY+probe, passage) [facility] [place]: [address] , [place] 12/04/2020 SARS CoV 2 RNA, Nose (nasal ? Result negative ? ? Compcare QL, MISSY+probe, passage) [facility]gent [facility] [place]: [address] , [place] Past Encounters 05/31/2021 Exposure to SARS-CoV-2 JAYLON Palma: [address], [place] [address], Ph. 12/06/2020 Covid-19 JAYLON Olvera: [address], [place] [address], Ph. 12/04/2020 Exposure to SARS-CoV-2; Sore Throat Symp nadia JAYLON Olvera: [address], [place] [address], Ph. Social History Tobacco Smoking Status Light [...]
--- OUTSIDE RECORDS SUMMARY | 2022-01-29 08:54 | XMS_ITS | Encounter Summary ---
:2000 Author Organization [facility] Address [address] [place] [address] Care Team Providers Name Role Phone Unavailable Primary Care Provider Unavailable Encounter Details Date Type Department Care Team Description 07/28/2012 Hospital Encounter HX [facility] Elisabet Mark, P.A.-C., [place] Social History Tobacco Use Types Packs/Day Years Used Date Smoking Tobacco: Never Assessed Sex Assigned at Date Recorded Not on file documented as of this encounter Plan of Treatment Not on filedocumented as of this encounter Visit Diagnoses Not on filedocumented in this encounter
--- OUTSIDE RECORDS SUMMARY | 2022-01-29 08:54 | XMS_ITS | Encounter Summary ---
:2000 Author Organization [facility] Address [address] [place] [address] Care Team Providers Name Role Phone Unavailable Primary Care Provider Unavailable Encounter Details Date Type Department Care Team Description 04/10/[address] [facility] ALZURDO EXPElisabet Skelton P.A.-C., COREY Social History Tobacco Use Types Packs/Day Years Used Date Smoking Tobacco: Never Assessed Sex Assigned at Date Recorded Not on file documented as of this encounter Last Filed Vital Signs Vital Sign Reading Time Taken Comments Blood Pressure - - Pulse 71 04/10/2013 10:23 AM ROLLING MACHINE TENDER Temperature - - Respiratory Rate - - Oxygen Saturation - - Inhaled Oxygen Concentration - - Weight 58.4 kg (128 lb 12 oz) 04/10/2013 10:23 AM ROLLING MACHINE TENDER Height - - Body Mass Index - - documented in this encounter Progress Notes Shaunna Gregory P.A.-C. - 04/10/2013 10:15 AM CST [id number] [facility] [place] [facility] CHIEF COMPLAINT/REASON FOR VISIT Cough. HISTORY OF [...] and nontender. NECK: Neck is supple. SKIN: [place], warm and dry. IMPRESSION/REPORT/PLAN Pharyngitis, non-strep. Upper [...] GREGORY PA-C On: 04/10/2013 12:19 PM Source: [facility] MHSDOLBEYNONRADSYS Document Id: [id number] ING MACHINE TENDER documented in this encounter Procedure Notes Conversion, Historical Provider Ser - 04/10/2013 10:34 AM CST Rapid Strep A Screen POC Rapid Strep A Screen POC Entered On: 04/10/2013 10:38 ROLLING MACHINE TENDER Performed On: 04/10/2013 10:34 ROLLING MACHINE TENDER by MARGARITA COLEMAN Rapid Strep A Screen POC Rapid Strep A Screen POC : Negative Internal QC : Pass Rapid Strep Device Lot Number : [id number] Rapid Strep Device Expiration Date : 12/31/2013 CDT MARGARITA COLEMAN - 04/10/2013 10:34 ROLLING MACHINE TENDER Source: [facility] POWERCHART Document Id: [id number] ROLLING MACHINE TENDER!6 documented in this encounter Miscellaneous Notes Miscellaneous - Shaunna Gregory P.A.-C. - 04/10/2013 10:46 AM CST Ambulatory Patient Summary [facility] - [address] [address] Visit Information Name: KERA FIGUEROA [facility] Number: [id number] Current Date: 04/10/2013 [...] appointment detail needed. Your Goals/Additional instructions: Source: [employer] POWERCHART Document Id: [id number] ING MACHINE TENDER Miscellaneous - Shaunna Gregory P.A.-C. - 04/10/2013 10:46 AM CST Ambulatory Depart Summary [facility] - [address] [address] Visit Information Name: CAROLINA KERA Mandel [facility] Number: [id number] Visit Date: 04/10/2013 [...] in case of emergency. Additional Information: [facility] Document Id: [id number] ING MACHINE TENDER Miscellaneous - Conversion, Historical Provider Ser - 04/10/2013 10:23 AM ROLLING MACHINE TENDER Pediatric Auto Body Mechanic Apprentice Intake/History Pediatric Auto Body Mechanic Apprentice Intake/History Entered On: 04/10/2013 10:29 ROLLING MACHINE TENDER Performed On: 04/10/2013 10:23 ROLLING MACHINE TENDER by MARGARITA COLEMAN Intake Chief Complaint : Runny nose for 4 days coughs when breathing hurts to cough threw up thursday throat headache Temperature Core : 37 DegC(Converted to: 98.6 DegF) Peripheral Pulse Rate : 71 /min SpO2 : 98 % Actual Weight : 58.4 kg(Converted to: 128 lb 12 oz) Dosing Weight Clinic : 58.4 kg MARGARITA COLEMAN - 04/10/2013 10:23 ROLLING MACHINE TENDER General Info Languages : Arabic MARGARITA COLEMAN - 04/10/2013 10:23 ROLLING MACHINE TENDER Subjective Pain Symptoms : Yes MARGARITA COLEMAN - 04/10/2013 10:23 ROLLING MACHINE TENDER Pain Pain Assessment Grid Pain 1 Pain 2 Location : Throat Laterality : Bilateral Intensity : 5 MARGARITA COLEMAN - 04/10/2013 10:23 ROLLING MACHINE TENDER MARGARITA COLEMAN - 04/10/2013 10:23 ROLLING MACHINE TENDER Dependent Habits Tobacco Use/Currently Using : No Smoking Status : Never smoker MARGARITA COLEMAN - 04/10/2013 10:23 ROLLING MACHINE TENDER Recreational Drug Use Grid Drug Use : None MARGARITA COLEMAN - 04/10/2013 10:23 ROLLING MACHINE TENDER Source: [facility] POWERCHART Document Id: [id number] ROLLING MACHINE TENDER!25 documented in this encounter Plan of Treatment Not on filedocumented as of this encounter Procedures Procedure Name Priority Date/Time Associated Diagnosis Comme nts RAPID STREP A Routine 04/10/2013 10:38 AM Results for this SCREEN ROLLING MACHINE TENDER procedure are i n the results section. documented in this encounter Results Rapid Strep A Screen (04/10/2013 10:38 AM ROLLING MACHINE TENDER) [facility] Method Time Signature HXRapid Strep POWERCHART Confirmation HXPre Negative for POWERCHART Group A Strep by culture. HXFinal Negative for POWERCHART Group A Strep by culture. Specimen (Source) Anatomical Collection Method Collection Time Re ceived Time Location / / Volume Laterality Throat 04/10/2013 10:38 AM ROLLING MACHINE TENDER Historical Provider LAB MICROBIOLOGY - GENERAL O RDERABLES Performing Organization Address City/State/ZIP Code Phon e Number POWERCHART documented in this encounter Visit Diagnoses Not on filedocumented in this encounter
--- OUTSIDE RECORDS SUMMARY | 2022-01-29 08:54 | XMS_ITS | Encounter Summary ---
:2000 Author Organization [facility] Address [address] [place] [address] Care Team Providers Name Role Phone Unavailable Primary Care Provider Unavailable Encounter Details Date Type Department Care Team Description 05/20/2012 - Hospital Encounter HX [facility] LILIANA PT Clay Villalpando, 05/27/[address] [place], [place] [address] (Wo rk) Social History Tobacco Use Types Packs/Day Years Used Date Smoking Tobacco: Never Assessed Sex Assigned at Date Recorded Not on file documented as of this encounter Plan of Treatment Not on filedocumented as of this encounter Visit Diagnoses Not on filedocumented in this encounter
--- OUTSIDE RECORDS SUMMARY | 2022-01-29 08:54 | XMS_ITS | Encounter Summary ---
:2000 Author Organization [facility] Address [address] [place] [address] Care Team Providers Name Role Phone Unavailable Primary Care Provider Unavailable Encounter Details Date Type Department Care Team Description 04/27/2015 Hospital Encounter HX [facility] HENRIN Denton Mirza M.D. [address] [place] [address] [phone] (Wo rk) Social History Tobacco Use Types Packs/Day Years Used Date Smoking Tobacco: Never Assessed Sex Assigned at Date Recorded Not on file documented as of this encounter Last Filed Vital Signs Vital Sign Reading Time Taken Comments Blood Pressure 128/71 04/27/2015 12:06 PM CLINICAL AUDIOLOGIST Pulse 67 04/27/2015 12:06 PM CLINICAL AUDIOLOGIST Temperature - - Respiratory Rate 12 04/27/2015 12:06 PM CLINICAL AUDIOLOGIST Oxygen Saturation - - Inhaled Oxygen Concentration - - Weight 60 kg (132 lb 4.4 oz) 04/27/2015 12:06 PM CLINICAL AUDIOLOGIST Height 166 cm (5' 5.35) 04/27/2015 12:06 PM CLINICAL AUDIOLOGIST Body Mass Index 21.77 04/27/2015 12:06 PM CLINICAL AUDIOLOGIST Body Mass Index Percentile 60.45 % 04/27/2015 12:[address] Growth Chart: CDC (Girls, 2-20 Years) documented in this encounter Discharge Summaries Nieves Rios R.N. - 04/27/2015 12:18 PM CST ED Discharge Instructions [facility] [address] [place] [address] Name: KERA FIGUEROA Date of : 2000 12:00 AM Visit Date: 04/27/2015 11:55 AM [facility] Number: [id number] Address: [address] [facility] [address] Primary Care Provider: PCP, GLORY IMPORTANT: [facility] in [place] would like to thank you for allowing [...] your healthcare provider ?? Convulsion (seizure) ?? [phone] Pete Rahman, [address] [facility], [place] [id number]. All rights reserved. This information is not [...] if you dont have one. Go to [email or web address] and click on Create Your Account. Then, follow the directions to complete the online form. Youll be asked for your [facility] number which you can find at the [...] arrange a ride home with a responsible green party. CAROLINA Glass JESSICA MARIAH , or responsible green party have received this information and my questions have been answered. I have discussed any challenges I see with this plan with the nurse or physician. Patient Signature or Responsible Democrat/Relationship Date Time Provider Signature Date Time IMPORTANT: [...] arrange a ride home with a responsible green party. CAROLINA Glass JESSICA MARIAH , or responsible green party have received this information and my questions have been answered. I have discussed any challenges I see with this plan with the nurse or physician. Patient Signature or Responsible Democrat/Relationship Date Time Provider Signature Date Time This document has images extracted. Please consider using [employer] for all your patient education needs. Source: [employer] Document Id: [id number] ICAL AUDIOLOGIST Nieves Rios R.N. - 04/27/2015 12:18 PM CST ED Depart Summary [facility] Emergency Department Clinical Discharge Summary PERSON INFORMATION Name KERA FIGUEROA Age 15 Years 2000 12:00 AM Sex Female Language Moldovan PCP PCP, ELSEWHERE Marital Status Single N [id number] Visit Id [facility]# [id number] Visit Reason Ear pain; Ear pain; ear pain Specialty Enc Type Emergency Med Service Emergency Medicine Referred by Track Group MAQN ED Discharge 04/27/2015 12:13 PM Tracking Id [id number] Checkout 04/27/2015 12:13 PM Checkin 04/27/2015 11:55 AM Acuity 5 -Non Urgent Dispo Type * Discharged to Home or Self Care Arrival 04/27/2015 11:55 AM Reg Status LOS 000 00:18 Address: [address] [place] [address] Comment: PROVIDER INFORMATION Provider Role Provider Contact Time DENTON GANDHI MD ED Provider 04/27/15 12:05 NIEVES RIOS COMIC WRITER Nurse 04/27/15 12:11 DIAGNOSIS Otitis Media (OM) Acute R Comment: PATIENT EDUCATION INFORMATION Instructions: OTITIS MEDIA, Abx Tx (Adult) Follow up: With: Address: When: Follow up with primary care provider Within 2 weeks Comments: follow up to recheck right ear to ensure resolution of effusion behind ear. Today Tylenol 1000 mg alternating with ibuprofen 800 mg every 3 hours. Source: [employer] Document Id: [id number] ICAL AUDIOLOGIST documented in this encounter ED Notes Nieves Rios R.N. - 04/27/2015 12:17 PM CST ED Disposition Summary ED Disposition Summary Entered On: 04/27/2015 12:17 CLINICAL AUDIOLOGIST Performed On: 04/27/2015 12:17 CLINICAL AUDIOLOGIST by NIEVES RIOS COMIC WRITER Disposition Summary Accompanied By : Mother Mode of Discharge : Ambulatory Transportation : Private vehicle Printed Discharge Instructions Given to Patient : Yes Patient Status at Discharge from ED : Unchanged NIEVES RIOS RN - 04/27/2015 12:17 CLINICAL AUDIOLOGIST Source: [employer] Document Id: [id number] CLINICAL AUDIOLOGIST!7 ICAL AUDIOLOGIST Denton Gandhi M.D. - 04/27/2015 12:06 PM [...] Examination Vital Signs: Vital Signs 04/27/2015 12:06 CLINICAL AUDIOLOGIST Temperature Core 37.1 DegC Peripheral Pulse Rate [...] Time 04/27/2015 12:07:00, to home. Prescriptions: Prescription Medication Aide Pharmacy: Zithromax Z-Thomas 250 mg oral tablet [...] Discharge ED Patient (Order Processing): 04/27/2015 12:10 CLINICAL AUDIOLOGIST, Once. Electronically Signed By: DENTON GANDHI MD On: 04/27/2015 12:13 PM Modified by and Electronically Signed by: DENTON GANDHI MD On: 04/27/2015 12:13 PM Source: [facility] POWERCHART Document Id: [id number]} ICAL AUDIOLOGIST Nieves Rios R.N. - 04/27/2015 12:06 PM CST ED Primary Assessment Document Has Been Updated ED Primary Assessment Entered On: 04/27/2015 12:11 CLINICAL AUDIOLOGIST Performed On: 04/27/2015 12:06 CLINICAL AUDIOLOGIST by NIEVES RIOS RN Reason For Visit (As Of: 04/27/2015 12:11:19 CLINICAL AUDIOLOGIST) Diagnoses(Active) Ear pain Date: 04/27/2015 ; Diagnosis Type: Reason For Visit ; Confirmation: Complaint of ; ClinicalDx: Ear pain ; Classification: Medical ; Clinical Service: Emergency medicine ; Code: PNED ; Probability: 0 ; Diagnosis Code: [id number] Ear pain Date: 04/27/2015 ; Diagnosis Type: Reason For Visit ; Confirmation: Confirmed ; Clinical Dx: Ear pain ; Classification: Medical ; Clinical Service: Emergency medicine ; Code: PNED ; Probability: 0 ; Diagnosis Code: [id number] Otitis Media (OM) Acute R Date: 04/27/2015 [...] Private vehicle Track : Medical Languages : Moldovan Vital Signs Assessed : Yes Treatments Prior to Arrival : None Are you ? : No Is Patient Female and 13-50 no hysterectomy : Yes Status : Patient denies NIEVES RIOS RN - 04/27/2015 12:06 CLINICAL AUDIOLOGIST Vital Signs Temperature Core : 37.1 DegC(Converted [...] kg/m2 NIEVES RIOS RN - 04/27/2015 12:06 CLINICAL AUDIOLOGIST Pain Assessment Pain Symptoms : Yes NIEVES RIOS RN - 04/27/2015 12:06 CLINICAL AUDIOLOGIST Pain Scale Pain Scale Verbal 0-10 : Open NIEVES RIOS RN - 04/27/2015 12:06 CLINICAL AUDIOLOGIST Pain Pain Assessment Grid Pain 1 Location : Ear Laterality : Right Intensity : 5 NIEVES RIOS RN - 04/27/2015 12:06 CLINICAL AUDIOLOGIST PADILLA PADILLA Level 1 : No PADILLA Level 2 : No PADILLA Level 3 : None NIEVES RIOS RN - 04/27/2015 12:06 CLINICAL AUDIOLOGIST DCP GENERIC CODE Tracking Acuity : 5 -Non Urgent Tracking Group : MAQN ED NIEVES RIOS - 04/27/2015 12:06 CLINICAL AUDIOLOGIST Allergy (As Of: 04/27/2015 12:11:19 CLINICAL AUDIOLOGIST) Allergies (Active) amoxicillin Estimated Onset Date: Unspecified ; Reactions: gi issues ; Created By: MARGARITA COLEMAN; Reaction Status: Active ; Category: Drug ; Substance: amoxicillin ; Type: Allergy ; Severity: Severe ;Updated By: MARGARITA COLEMAN; Reviewed Date: 04/27/2015 12:10 CLINICAL AUDIOLOGIST ID Screen Drug Resistant Organism : No Travel Within Last 21 Days : No Contact with someone with Ebola : No NIEVES RIOS RN - 04/27/2015 12:06 CLINICAL AUDIOLOGIST TB Symptoms Grid Bloody Sputum : No Fatigue : No Fever : No Loss of Appetite : No Night Sweats : No Persistent Cough Greater Than 3 Weeks : No Weight Loss : No NIEVES RIOS RN - 04/27/2015 12:06 CLINICAL AUDIOLOGIST Immunizations Immunizations Current : Yes Influenza : None NIEVES RIOS RN 04/27/2015 12:06 CLINICAL AUDIOLOGIST Respiratory Airway : Patent Respirations : Unlabored Respiratory Pattern : Regular NIEVES RIOS RN - 04/27/2015 12:06 CLINICAL AUDIOLOGIST Cardiovascular Heart Rhythm : Regular Skin Color : [place] Skin Description : Normal Skin Temperature : Warm NIEVES RIOS RN 04/27/2015 12:06 CLINICAL AUDIOLOGIST Neurological Last Well Time Known : Not applicable Level of Consciousness : Alert Orientation : Oriented x 3 Characteristics of Speech : Appropriate for age NIEVES RIOS RN - 04/27/2015 12:06 CLINICAL AUDIOLOGIST ED Psychosocial Affect/Behavior : Calm, Cooperative, Appropriate Domestic Abuse Concerns : None Behavioral Health Screen/Safety Assmt : NIEVES Saldana RN - 04/27/2015 12:06 CLINICAL AUDIOLOGIST Gastrointestinal Nutrition ED : NIEVES Emery RN - 04/27/2015 12:06 CLINICAL AUDIOLOGIST Musculoskeletal Fall Prevention Education Provided : NIEVES MONREAL RN - 04/27/2015 12:06 CLINICAL AUDIOLOGIST Social Habits Exposure to Tobacco Smoke : Care provider denies smoking in home Smoking Status : Never smoker Tobacco 2A : NIEVES Saldana RN - 04/27/2015 12:06 CLINICAL AUDIOLOGIST Alcohol Use Grid Alcohol Use : NIEVES Saldana RN - 04/27/2015 12:06 CLINICAL AUDIOLOGIST Recreational Drug Use Grid Drug Use : None NIEVES RIOS RN - 04/27/2015 12:06 CLINICAL AUDIOLOGIST Source: [facility] [employer] Document Id: [id number] CLINICAL AUDIOLOGIST!90 ICAL AUDIOLOGIST documented in this encounter Miscellaneous Notes Miscellaneous - Nieves Rios RJenni - 04/27/2015 12:17 PM CST Valuables/Belongings Valuables/Belongings Entered On: 04/27/2015 12:17 CLINICAL AUDIOLOGIST Performed On: 04/27/2015 12:17 CLINICAL AUDIOLOGIST by NIEVES RIOS RN Valuables/Belongings Belongings Sent Home With : patient NIEVES RIOS RN - 04/27/2015 12:17 CLINICAL AUDIOLOGIST Source: [facility] Document Id: [id number] CLINICAL AUDIOLOGIST!3 ICAL AUDIOLOGIST Miscellaneous - Conversion, Historical Provider Ser - 04/27/2015 12:13 PM CLINICAL AUDIOLOGIST Coding Summary-Paper Based CODING DATE: 05/11/2015 FINAL [facility] STATUS: * Discharged to Home or [...] SINCLAIR Date Saved: 05/11/2015 09:40 am Source: [employer] Document Id: [id number] Miscellaneous - Nieves Rios, R.N. - 04/27/2015 11:55 AM CST Facility Charge Ticket 2.0 11.0 DX Facility Charge Ticket 2.0 11.0 DX Entered On: 04/27/2015 12:17 CLINICAL AUDIOLOGIST Performed On: 04/27/2015 11:55 CLINICAL AUDIOLOGIST by NIEVES RIOS RN Facility Charge Ticket [...] Control : 3 Lynx Visit Level : 20875 Level 2 Treatments Prior to Arrival : None NIEVES RIOS RN - 04/27/2015 12:17 CLINICAL AUDIOLOGIST Source: [employer] Document Id: [id number] CLINICAL AUDIOLOGIST!18 ICAL AUDIOLOGIST documented in this encounter Plan of Treatment Not on filedocumented as of this encounter Visit Diagnoses Not on filedocumented in this encounter"
[2022-01-29 13:27] LABS: Albumin* 4.5 g/dL (3.3-5.0); Chloride* 104 mmol/L (96-114)
[2022-01-29 13:28] LABS: Potassium* 4.3 mmol/L (3.6-5.1); Sodium* 138 mmol/L (135-149)
[2022-01-29 13:30] LABS: Alkaline Phosphatase* 75 U/L (40-150); Aspartate Amino Transferase* 22 U/L (12-35); Bilirubin Total* 0.3 mg/dL (0.1-1.5); Blood Urea Nitrogen* 13 mg/dL (5-24); Carbon Dioxide* 25 mmol/L (20-32); Total Protein* 7.2 g/dL (6.0-8.3)
[2022-01-29 13:31] LABS: Alanine Aminotransferase* 14 U/L (4-35); Calcium* 9.5 mg/dL (8.4-10.6); Glucose* 108 mg/dL (60-115)
[2022-01-29 13:33] LABS: Vitamin D 25 Hydroxy* 69 ng/mL (30-80)
[2022-01-29 13:46] LABS: Estimated Glomerular Filt Rate 81 ml/min
== END 2022-01-29 08:50 | disposition home or self-care (01) ==
PROVIDERS: PCP Physician Assistant Medical; Visit Provider Physician Assistant Medical
DX: Z01.419 Encounter for gynecological examination (general) (routine) without abnormal findings (principal); F32.A Depression, unspecified
CPT/HCPCS: 80053; 80175; 82306; 84443

== ENCOUNTER 2023-03-12 09:22 | Outpatient (CLI) | payer BC, SELFPAY ==
[2023-03-12 16:07] LABS: Chlamydia DNA Amplified* NOT DETECTED (No Detected); GC DNA Amplified* NOT DETECTED (No Detected)
== END 2023-03-12 09:23 | disposition home or self-care (01) ==
PROVIDERS: PCP Physician Assistant Medical; Visit Provider Physician Assistant Medical
DX: Z00.00 Encounter for general adult medical examination without abnormal findings (principal); Z13.29 Encounter for screening for other suspected endocrine disorder; Z11.3 Encounter for screening for infections with a predominantly sexual mode of transmission; Z13.6 Encounter for screening for cardiovascular disorders
CPT/HCPCS: 80053; 80061; 82306; 82728; 84443; 87491; 87591

== ENCOUNTER 2023-03-25 14:14 | Outpatient (CLI) | payer BC, SELFPAY ==
--- NOTE | 2023-03-25 14:30 | CRLHL7_ITS ---
For Patients: As a result of the Century Cures Act, medical imaging exams and procedure reports are released immediately into your electronic medical record. You may view this report before your referring provider. If you have questions, please contact your health care provider. INDICATION: Low back pain. COMPARISON: 11/03/2011. TECHNIQUE: Sagittal T1, T2, and STIR sequences. Axial T1 and T2 weighted sequences. FINDINGS: Normal vertebral body alignment. No fractures. No vertebral body loss of height. No spondylosis is. No evidence injury. Normal marrow signal. No suspicious osseous lesions. Normal conus terminates at L1. T12-L1: No spinal canal neural foraminal narrowing. L1-2: Annular bulge. No spinal canal or neural foraminal narrowing. L2-3: No spinal canal or neural foraminal narrowing. L3-4: No spinal canal or neural foraminal narrowing. L4-5: No spinal canal or neural foraminal narrowing. L5-S1: Disc degeneration and posterior disc bulge. Tiny central annular fissure. No narrowing of spinal canal. No impingement of the traversing S1 nerve roots. No neural foraminal narrowing. Normal visualized SI joints. Normal paraspinal soft tissues. IMPRESSION: 1. Normal alignment. No fractures. 2. Lumbar spondylosis. 3. At L5-S1, disc degeneration and posterior disc bulge. Tiny central annular fissure. No narrowing of the spinal canal. No neural foraminal narrowing. 4. No spinal canal or neural foraminal narrowing at the remaining levels Dictated by Abrahan Bliss MD @ 03/25/2023 4:09:35 PM (Electronically Signed)
== END 2023-03-25 14:15 | disposition home or self-care (01) ==
LOC: MRI 14:15
PROVIDERS: PCP Physician Assistant Medical; Visit Provider Physician Assistant Medical
DX: M54.50 Low back pain, unspecified (principal); M47.896 Other spondylosis, lumbar region; M51.37 Other intervertebral disc degeneration, lumbosacral region; Q05.9 Spina bifida, unspecified
CPT/HCPCS: 72148

== ENCOUNTER 2023-07-22 15:10 | Outpatient (CLI) | payer BC, SELFPAY | END 2023-07-22 15:11 | disposition home or self-care (01) | LOC: NFLDREF 07-24 06:53 | PROVIDERS: PCP Physician Assistant Medical; Referring Provider Physician Assistant Medical; Visit Provider Physician Assistant Medical | DX: R74.01 Elevation of levels of liver transaminase levels (principal) | CPT/HCPCS: 80076 ==

== ENCOUNTER 2023-12-10 09:41 | Outpatient (CLI) | payer BC, SELFPAY ==
--- OUTSIDE RECORDS SUMMARY | 2023-12-10 09:51 | XMS_ITS | Clinical Summary ---
Author Organization [facility] Address [address] [place] [address]. [place] [address] Care Team Providers Care Production Grader Name Role Phone [facility]- Primary Care Provider Allergies Active Allergy Reactions Criticality Noted Date Comments Amoxicillin GI Disturbance 08/02/2018 Medications Medication Sig Dispensed Refills Start Date End Date Status lamoTRIgine (LAMICTAL) 150 MG tabletIndications:Dep ression with anxiety Take 1 tablet (150 mg) by mouth At Bedtime 30 tablet 08/11/2018 Active sertraline (ZOLOFT) 25 MG tabletIndications:Dep ression with anxiety Take 1 tablet (25 mg) by mouth daily 30 tablet 08/12/2018 Active Active Problems Problem Noted Date Diagnosed Date Suicidal ideation 08/03/2018 Social History Tobacco Use Types Packs/Day Years Used Date Smoking Tobacco: Some Days Smokeless Tobacco: Never Alcohol Use Standard Drinks/Week Comments Yes 0 (1 standard drink = 0.6 oz pure alcohol) Pt states she drank alot on Thursday Adolescent Education Answer Date Record ed Getting School Help Needed Not on file 02/07 Sex and Gender Information Value Date Recorded Sex Assigned at Not on file Gender Identity Not on file Sexual Orientation Not on file Last Filed Vital Signs [...] 08/02/2018 3:38 PM CDT Plan of Treatment Not on file Advance Directives For more information, please contact: [phone] * Full Code (Latest Code Status on File) Date Activated Date Inactivated Comments 08/03/2018 10:33 AM 08/12/2018 3:19 PM Question Answer Comments Code status determined by: Discussion with zaira nt/legal decision maker Care Teams Production Grader Relationship Specialty Start Date End Date [facility]- [address] [place] [address] PCP - General 08/02/18
--- OUTSIDE RECORDS SUMMARY | 2023-12-10 09:51 | XMS_ITS | Encounter Summary ---
Author Organization [facility] Address [facility] [place] [address] Care Team Providers Care Farm Management Teacher Name Role Phone [facility]- Primary Care Provider Reason for Visit * Reason Onset Date Comments MH/CD Inpatient 08/02/2018 Encounter Details Date Type Department Care Team ([facility] Contact Info) Description 08/02/2018 Telephone [facility] Health Intake [address] [place] [phone] Generic, Behavioral Intake, MH/CD Inpatient Social History Tobacco Use Types Packs/Day Years Used Date Smoking Tobacco: Some Days Smokeless Tobacco: Never Alcohol Use Standard Drinks/Week Comments Yes 0 (1 standard drink = 0.6 oz pure alcohol) Pt states she drank alot on Thursday Sex and Gender Information Value Date Recorded Sex Assigned at Not on file Gender Identity Not on file Sexual Orientation Not on file documented as of this encounter Miscellaneous Notes * Telephone Encounter - EulaliaradhajohannJeffypadmini Orozco - 08/02/2018 6:34 PM CDT S: Pt is a 18 yr old fem [facility] for urges to self harm and inability to contract for safety report by Oriana B: Pt reports he father completed [...] reports she started seeing a psychiatrist in [facility] has an appointment scheduled with a therapist but hasn't seen one yet. No reported medical concerns or cd issues. Vessel Slagman reports pt is able to ambulate independently. A: vol R: 4a / Sheyla Root Accepted by Dr. Mejia documented in this encounter Plan of Treatment Not on file documented as of this encounter Visit Diagnoses Not on filedocumented in this encounter Care Teams Farm Management Teacher Relationship Specialty Start Date End Date [facility]- [address] [place] [address] PCP - General 08/02/18 documented as of this encounter
--- OUTSIDE RECORDS SUMMARY | 2023-12-10 09:51 | XMS_ITS | Referral Summary ---
Author Organization [facility] Address [address] [place] [address]. [place] [address] Care Team Providers Care Chief Engineer Research Name Role Phone [facility]- Primary Care Provider Allergies Active Allergy Reactions [...] Advance Directives For more information, please contact: [phone] * Full Code (Latest Code Status on File) Date Activated Date Inactivated Comments 08/03/2018 10:33 AM 08/12/2018 3:19 PM Question Answer Comments Code status determined by: Discussion with zaira nt/legal decision maker Care Teams Chief Engineer Research Relationship Specialty Start Date End Date [facility]- [address] [place] [address] PCP - General 08/02/18
--- OUTSIDE RECORDS SUMMARY | 2023-12-10 09:51 | XMS_ITS | Clinical Summary ---
Author Organization [facility] Address [address] [place] [address] Care Team Providers Care Research Compliance Specialist Name Role Phone Deanna Kimble MD Primary Care Provider [phone] Source Comments You are receiving this document as you are listed as the primary care provider,follow-up provider, or the patient has been referred to you for consultation.This is in compliance with the Medicare andThe [facility] EHR Incentive Program,which states Providers who transition their patient to another setting of careor provider of care or refers their patient to another provider of care shouldprovide summary care record for each transition of care or referral. [employer] Allergies Active Allergy Reactions Criticality Noted Date Comments Amoxicillin Gastrointestinal 06/16/2017 Medications Medication Sig Dispensed Refills Start Date End Date Status lamoTRIgine (LAMICTAL) 100 MG tabletIndications:Chr onic urticaria,Food intolerance Take 100 mg by mouth daily. Active escitalopram oxalate (LEXAPRO) 10 MG tabletIndications:Chr onic urticaria,Food intolerance Take 10 mg by mouth daily. Active Etonogestrel-Ethinyl Estradiol (NUVARING) 0.12-0.015 MG/24HR vaginal ringIndications:Chron ic urticaria,Food intolerance Insert 1 Each vaginally . Insert on or before 5th day of cycle, remove after 3 wks,after 1 week break insert a new ring Active benzoyl peroxide (BENZACAC) 10 % gelIndications:Chroni c urticaria,Food intolerance Apply topically daily as needed. Active cholecalciferol (VITAMIND3) 2000 UNITS tabletIndications:Chr onic urticaria,Food intolerance Take 2,000 Units by mouth daily. Active VITAMIN B COMPLEX-C ORIndications:Chronic urticaria,Food intolerance Take 1 Cap by mouth daily. Active Active Problems No known active problems Social History Tobacco Use Types Packs/Day Years Used Date Smoking Tobacco: Some Days Cigarettes 0.1 8.6 Started: 05/04/2015 Smokeless Tobacco: Never Sex and Gender Information Value Date Recorded Sex Assigned at Not on file Gender Identity Not on file Sexual Orientation Not on file Last Filed Vital Signs Vital Sign Reading Time Taken Comments Blood Pressure 110/60 06/16/2017 2:13 PM CLEANING TECHNICIAN Pulse 76 06/16/2017 2:13 PM CLEANING TECHNICIAN Temperature - - Respiratory Rate - - Oxygen Saturation 99% 06/16/2017 2:13 PM CLEANING TECHNICIAN Inhaled Oxygen Concentration - - Weight 64.4 kg (142 lb) 06/16/2017 2:13 PM CLEANING TECHNICIAN Height 165.1 cm (5' 5) 06/16/2017 2:13 PM CLEANING TECHNICIAN Body Mass Index 23.63 06/16/2017 2:13 PM CLEANING TECHNICIAN Plan of Treatment Health Maintenance Due Date Last Done Comments Cervical Cancer Screening Due 2000 Chlamydia 1998 Hep C Screening (Preventive Services) 1998 HPV Vaccine (1 - 3-dose series) 2013 HIV Screening (Preventive Services) 2014 Adult Preventive Visit 2016 DTaP/Tdap/Td (1 - Tdap) 2017 HepB (1) 2017 COVID-19 Vaccine ( - 2022-2 4 season) 2023 Influenza (#1) 2024 Zoster/Shingles (1 of 2) 2048 HepA Aged Out No longer eligi ble based on patient's age to complete this topic Hib Aged Out No longer eligi ble based on patient's age to complete this topic IPV (Polio) Aged Out No longer eligi ble based on patient's age to complete this topic MCV4 Aged Out No longer eligi ble based on patient's age to complete this topic Pneumococcal Aged Out No longer eligi ble based on patient's age to complete this topic Care Teams Research Compliance Specialist Relationship Specialty Start Date End Date Deanna Kimble MD [address] [place] [address] PCP - General Family Practice 03/10/17
== END 2023-12-10 09:42 | disposition home or self-care (01) ==
PROVIDERS: PCP Physician Assistant Medical; Visit Provider Physician Assistant Medical
DX: R74.01 Elevation of levels of liver transaminase levels (principal); Z13.29 Encounter for screening for other suspected endocrine disorder; K21.9 Gastro-esophageal reflux disease without esophagitis
CPT/HCPCS: 80076; 83690; 84443; 86231; 86258; 86364

== ENCOUNTER 2023-12-14 08:44 | Outpatient (CLI) | payer BC, SELFPAY ==
--- OUTSIDE RECORDS SUMMARY | 2023-12-18 01:33 | XMS_ITS | Clinical Summary ---
Author Organization [facility] Address [address] [place] [address] Care Team Providers Care Traffic Enumerator Name Role Phone Deanna Kimble MD Primary Care Provider [phone] Source Comments You are receiving this document as you are listed as the primary care provider,follow-up provider, or the patient has been referred to you for consultation.This is in compliance with the Medicare and[facility] Hospital[facility]id EHR Incentive Program,which states Providers who transition their patient to another setting of careor provider of care or refers their patient to another provider of care shouldprovide summary care record for each transition of care or referral. [place] Allergies Active Allergy Reactions Criticality Noted Date [...] Comments Blood Pressure 110/60 06/16/2017 2:13 PM CHIEF CLIENT OFFICER Pulse 76 06/16/2017 2:13 PM CHIEF CLIENT OFFICER Temperature - - Respiratory Rate - - Oxygen Saturation 99% 06/16/2017 2:13 PM CHIEF CLIENT OFFICER Inhaled Oxygen Concentration - - Weight 64.4 kg (142 lb) 06/16/2017 2:13 PM CHIEF CLIENT OFFICER Height 165.1 cm (5' 5) 06/16/2017 2:13 PM CHIEF CLIENT OFFICER Body Mass Index 23.63 06/16/2017 2:13 PM CHIEF CLIENT OFFICER Plan of Treatment Health Maintenance Due Date [...] age to complete this topic Care Teams Traffic Enumerator Relationship Specialty Start Date End Date Deanna Kimble MD [address] [place] [address] PCP - General Family Practice 03/10/17
--- OUTSIDE RECORDS SUMMARY | 2023-12-18 01:33 | XMS_ITS | Clinical Summary ---
Author Organization [employer] [facility] s & [facility] Address [place], [place] [address] Care Team Providers Care Inspector Floor Sub Assembly Name Role Phone Leobardo Villalpando MD Primary Care Provider [phone] Active Problems Problem Noted Date Diagnosed Date Adjustment disorder with mixed anxiety and depre ssed mood 09/23/2011 Adjustment disorder with depressed mood 06/19/19 12 Encounters Date Type Department Care Team Description 11/18/2023 2:28 PM CDT - 11/18/2023 11:59 PM CDT Hospital Encounter [address] [address] Mika Acosta MD Nightingale, Alexandra, PT 11/18/2023 Travel 11/09/2023 7:15 AM CDT - 11/09/2023 11:59 PM CDT Hospital Encounter [address] [address] Mika Acosta MD Nightingale, Alexandra, PT 11/09/2023 Travel 11/03/2023 9:15 AM CDT - 11/03/2023 11:59 PM CDT Hospital Encounter [address] [address] Mika Acosta MD Nightingale, Alexandra, PT 11/03/2023 Travel 10/12/2023 11:30 AM CDT - 10/12/2023 11:59 PM CDT Hospital Encounter [address] [place] [address] Mika Acosta MD Nightingale, Alexandra, PT 10/12/2023 Travel 10/01/2023 12:15 PM CDT - 10/01/2023 11:59 PM CDT Hospital Encounter [address] [address] Mika Acosta MD Nightingale, Alexandra, PT 10/01/2023 Travel 09/23/2023 11:30 AM CDT - 09/23/2023 11:59 PM CDT Hospital Encounter [address] [address] Mika Acosta MD Nightingale, Alexandra, PT 09/23/2023 Travel from Last 3 Months Social History Tobacco Use Types Packs/Day Years Used Date Smoking Tobacco: Never Assessed Sex and Gender Information Value Date Recorded Sex Assigned at Not on file Gender Identity Not on file Sexual Orientation Not on file Plan of Treatment Health Maintenance Due Date Last Done Comments Tdap 2009 Depression screening for age 12+ 2010 HIV for age 15-65 2013 HPV series for age 9-26 (1 - 3-dose series) 2013 BMI (ht and wt on same day) for age 18+ 2016 Hepatitis C screening for ag e 18-79 2016 Tetanus booster 2018 COVID-19 vaccine series (2022-24 season) 2023 Influenza for age 9-49 01/03/2024 Pap test for age 21-65 03/12/2026 , 11/18/2019 Pneumococcal series for age 6-64 Aged Out No longer eligible b ased on patient's age to complete this topic Procedures Procedure Name Priority Date/Time Associated Diagnosis Comments TANK BUILDER AND ERECTOR THIN PREP PAP SCREEN IMAGED Routine 03/12/2023 9:20 AM ASPHALT PAVING SUPERVISOR from Last 3 Months or Most Recently Relevant to Health Maintenance Results * TANK BUILDER AND ERECTOR THIN PREP PAP SCREEN IMAGED (03/12/2023 9:20 AM ASPHALT PAVING SUPERVISOR) Case Report Gynecologic Cytology Report ? Case: [id number] ? Authorizing Provider: ??Isa Orellana PA-C ?Collected: ? 03/12/2023 0920 ? Ordering Location: ? [facility] ?Received: ?03/13/2023 1229 ? First Screen: ?Deisy Nguyen ? Specimen: ?TANK BUILDER AND ERECTOR ThinPrep Vial Screening, Cervical ? 03/20/2023 11:46 AM [facility]-C ENTRAL LABORATORY INTERPRETATION/ RESULT NEGATIVE FOR INTRAEPITHELIAL LESION OR MALIGNANCY (NIL) (none) 03/20/2023 11:46 AM [facility] EN[facility]AL LABORATORY IMEN ADEQUACY Satisfactory for evaluation Endocervical component present 03/20/2023 11:46 AM [facility] EN[facility] LAB[facility]AT[facility] HPV REQUEST HPV not requested 2022 11:46 AM ASPHALT PAVING SUPERVISOR [facility] EN[facility] LAB[facility]AT[facility] Date of LMP 03/04/2023 03/20/2023 11:46 AM [facility] EN[facility] LAB[facility]AT[facility] Last Pap Date 11/18/2019 03/20/2023 11:46 AM ASPHALT PAVING SUPERVISOR [facility]-C ENTRVT LABORATORY Last Pap Result NIL 11:46 AM ASPHALT PAVING SUPERVISOR [facility] [place] Bx Done Today No 03/20/2023 11:46 AM ASPHALT PAVING SUPERVISOR [facility] Additional Information 03/20/2023 11:46 AM ASPHALT PAVING SUPERVISOR [facility] ENTRVT LABORATORY Comment: Interpreted at [facility] - [address] [place] [address] Automated Review Successful 03/20/2023 11:46 AM ASPHALT PAVING SUPERVISOR [facility] ENTRVT LABORATORY Comment:Specimen processed s uccessfully by automated coconut boiler device, MedprexPrep Imaging System, [employer] Note The pap test is a screening technique, not a diagnostic procedure. It is used primarily to screen for squamous cancers and precursor lesions. Published studies have shown that it is subject to both false negative and false positive results. The pap test should not be used as the sole means to diagnose or exclude pre-malignant and malignant lesions. 03/20/2023 11:46 AM [facility] Other (Cervical) 03/12/2023 9:20 AM ASPHALT PAVING SUPERVISOR 03/13/2023 12:29 PM ASPHALT PAVING SUPERVISOR Isa Orellana PA-C PATHOLOGY/CYTOLOGY [facility] [address] [place] [address], from Last 3 Months or Most Recently Relevant to Health Maintenance Care Teams Inspector Floor Sub Assembly Relationship Specialty Start Date End Date Leobardo Villalpando MD PCP - General Family Practice 06/16/11
--- OUTSIDE RECORDS SUMMARY | 2023-12-18 01:33 | XMS_ITS | Referral Summary ---
Author Organization [place] Address [address] [place] [address]. [place] [address] Care Team Providers Care Procurement Services Manager Name Role Phone [facility]- Primary Care Provider Allergies Active Allergy Reactions [...] Advance Directives For more information, please contact: [phone] * Full Code (Latest Code Status on File) Date Activated Date Inactivated Comments 08/03/2018 10:33 AM 08/12/2018 3:19 PM Question Answer Comments Code status determined by: Discussion with zaira nt/legal decision maker Care Teams Procurement Services Manager Relationship Specialty Start Date End Date [facility]- [address] [place] [address] PCP - General 08/02/18
--- OUTSIDE RECORDS SUMMARY | 2023-12-18 01:33 | XMS_ITS | Clinical Summary ---
Author Organization [place] Address [address] [place] [address]. [place] [address] Care Team Providers Care Vp Treasurer Name Role Phone [facility]- Primary Care Provider Allergies Active Allergy Reactions [...] Advance Directives For more information, please contact: [phone] * Full Code (Latest Code Status on File) Date Activated Date Inactivated Comments 08/03/2018 10:33 AM 08/12/2018 3:19 PM Question Answer Comments Code status determined by: Discussion with zaira nt/legal decision maker Care Teams Vp Treasurer Relationship Specialty Start Date End Date [facility]- [address] [place] [address] PCP - General 08/02/18
--- OUTSIDE RECORDS SUMMARY | 2023-12-18 01:33 | XMS_ITS | Encounter Summary ---
Author Organization [place] Address [facility] [place] [address] Care Team Providers Care Warehouse Worker Name Role Phone [facility]- Primary Care Provider Reason for Visit * Reason Onset Date Comments MH/CD Inpatient 08/02/2018 Encounter Details Date Type Department Care Team ([facility] Contact Info) Description 08/02/2018 Telephone [facility] Behavioral Health Intake [address] [place] [phone] Generic, Behavioral Intake, MH/CD Inpatient Social History [...] reports she started seeing a psychiatrist in [facility] has an appointment scheduled with a therapist but hasn't seen one yet. No reported medical concerns or cd issues. Supervisor [place] reports pt is able to ambulate independently. A: vol R: 4a / Sheyla Root Accepted by Dr. Mejia documented in this encounter Plan of Treatment Not on file documented as of this encounter Visit Diagnoses Not on filedocumented in this encounter Care Teams Warehouse Worker Relationship Specialty Start Date End Date [facility]- [address] [place] [address] PCP - General 08/02/18 documented as of this encounter
== END 2023-12-14 08:45 | disposition home or self-care (01) ==
LOC: NFLDREF 12-18 01:30
PROVIDERS: PCP Physician Assistant Medical; Referring Provider Physician Assistant Medical; Visit Provider Physician Assistant Medical
DX: K21.9 Gastro-esophageal reflux disease without esophagitis (principal)
CPT/HCPCS: 87338

== ENCOUNTER 2023-12-22 08:18 | Outpatient (CLI) | payer BC, SELFPAY ==
--- OUTSIDE RECORDS SUMMARY | 2023-12-22 08:20 | XMS_ITS | Clinical Summary ---
Author Organization [place] Address [address] [place] [address]. [place] [address] Care Team Providers Care Scenario Writer Name Role Phone [facility]- Primary Care Provider Allergies Active Allergy [...] Advance Directives For more information, please contact: [phone] * Full Code (Latest Code Status on File) Date Activated Date Inactivated Comments 08/03/2018 10:33 AM 08/12/2018 3:19 PM Question Answer Comments Code status determined by: Discussion with zaira nt/legal decision maker Care Teams Scenario Writer Relationship Specialty Start Date End Date [facility]- [address] [place] [address] PCP - General 08/02/18
--- OUTSIDE RECORDS SUMMARY | 2023-12-22 08:20 | XMS_ITS | Referral Summary ---
Author Organization [place] Address [address] [place] [address]. [place] [address] Care Team Providers Care Insurance Administrative Assistant Name Role Phone [facility]- Primary Care Provider Allergies Active Allergy Reactions [...] Advance Directives For more information, please contact: [phone] * Full Code (Latest Code Status on File) Date Activated Date Inactivated Comments 08/03/2018 10:33 AM 08/12/2018 3:19 PM Question Answer Comments Code status determined by: Discussion with zaira nt/legal decision maker Care Teams Insurance Administrative Assistant Relationship Specialty Start Date End Date [facility]- [address] [place] [address] PCP - General 08/02/18
--- OUTSIDE RECORDS SUMMARY | 2023-12-22 08:20 | XMS_ITS | Clinical Summary ---
Author Organization [facility] Address [address] [place] [address] Care Team Providers Care Tractor Trailer Driver Name Role Phone Deanna Kimble MD Primary Care Provider [phone] Source Comments You are receiving this document as you are listed as the primary care provider,follow-up provider, or the patient has been referred to you for consultation.This is in compliance with the Medicare andThe [facility] Hospital[facility] EHR Incentive Program,which states Providers who transition their patient to another setting of careor provider of care or refers their patient to another provider of care shouldprovide summary care record for each transition of care or referral. [place] Allergies Active Allergy Reactions Criticality Noted Date [...] Comments Blood Pressure 110/60 06/16/2017 2:13 PM OIL DISTRIBUTOR TENDER Pulse 76 06/16/2017 2:13 PM OIL DISTRIBUTOR TENDER Temperature - - Respiratory Rate - - Oxygen Saturation 99% 06/16/2017 2:13 PM OIL DISTRIBUTOR TENDER Inhaled Oxygen Concentration - - Weight 64.4 kg (142 lb) 06/16/2017 2:13 PM OIL DISTRIBUTOR TENDER Height 165.1 cm (5' 5) 06/16/2017 2:13 PM OIL DISTRIBUTOR TENDER Body Mass Index 23.63 06/16/2017 2:13 PM OIL DISTRIBUTOR TENDER Plan of Treatment Health Maintenance Due Date [...] age to complete this topic Care Teams Tractor Trailer Driver Relationship Specialty Start Date End Date Deanna Kimble MD [address] [place] [address] PCP - General Family Practice 03/10/17
--- OUTSIDE RECORDS SUMMARY | 2023-12-22 08:20 | XMS_ITS | Clinical Summary ---
Author Organization [employer] [facility] s & [facility] Address [place], [place] [address] Care Team Providers Care Telegrapher Agent Name Role Phone Leobardo Villalpando MD Primary Care Provider [phone] Active Problems Problem Noted Date Diagnosed Date Adjustment disorder with mixed anxiety and depre ssed mood 09/23/2011 Adjustment disorder with depressed mood 06/19/19 12 Encounters Date Type Department Care Team Description 11/18/2023 2:28 PM CDT - 11/18/2023 11:59 PM CDT Hospital Encounter [address] [address] Mika Acosta MD Nightingale, Alexandra, PT 11/18/2023 Travel 11/09/2023 7:15 AM CDT - 11/09/2023 11:59 PM CDT Hospital Encounter [address] [address] Mika Acosta MD Nightingale, Alexandra, PT 11/09/2023 Travel 11/03/2023 9:15 AM CDT - 11/03/2023 11:59 PM CDT Hospital Encounter [address] [address] Mika Acosta MD Nightingale, Alexandra, PT 11/03/2023 Travel 10/12/2023 11:30 AM CDT - 10/12/2023 11:59 PM CDT Hospital Encounter [address] [place] [address] Mika Acosta MD Nightingale, Alexandra, PT 10/12/2023 Travel 10/01/2023 12:15 PM CDT - 10/01/2023 11:59 PM CDT Hospital Encounter [address] [address] Mika Acosta MD Nightingale, Alexandra, PT 10/01/2023 Travel 09/23/2023 11:30 AM CDT - 09/23/2023 11:59 PM CDT Hospital Encounter [address] [address] Mika Acosta MD Nightingale, Alexandra, PT 09/23/2023 [...] Procedure Name Priority Date/Time Associated Diagnosis Comments MICA PLATE LAYER HAND THIN PREP PAP SCREEN IMAGED Routine 03/12/2023 9:20 AM CONCRETING SUPERVISOR from Last 3 Months or Most Recently Relevant to Health Maintenance Results * MICA PLATE LAYER HAND THIN PREP PAP SCREEN IMAGED (03/12/2023 9:20 AM CONCRETING SUPERVISOR) Case Report Gynecologic Cytology Report ? Case: [id number] ? Authorizing Provider: ??Isa Orellana PA-C ?Collected: ? 03/12/2023 0920 ? Ordering Location: ? [facility] ?Received: ?03/13/2023 1229 ? First Screen: ?Deisy Nguyen ? Specimen: ?MICA PLATE LAYER HAND ThinPrep Vial Screening, Cervical ? 03/20/2023 11:[address] [facility] LABORATORY-C ENTRAL LABORATORY INTERPRETATION/ RESULT NEGATIVE FOR INTRAEPITHELIAL LESION OR MALIGNANCY (NIL) (none) 03/20/2023 11:[address] [facility] LABORAT[facility]-C ENTRAL LABORATORY IMEN ADEQUACY Satisfactory for evaluation Endocervical component present 03/20/2023 11:[address] [facility] [facility] LABORAT[facility]-C ENTRAL LABORATORY HPV REQUEST HPV not requested 2022 11:46 AM CONCRETING SUPERVISOR [facility] LABORATORY-C ENTRAL LABORATORY Date of LMP 03/04/2023 03/20/2023 11:[address] [facility] [employer] [facility] LABORATORY-C ENTRAL LABORATORY Last Pap Date 11/18/2019 03/20/2023 11:46 AM CONCRETING SUPERVISOR [facility] LABORATORY-C ENTRIL LABORATORY Last Pap Result NIL 11:46 AM CONCRETING SUPERVISOR [facility] [place] Bx Done Today No 03/20/2023 11:46 AM CONCRETING SUPERVISOR [facility] ENTRIL [facility] Additional Information 03/20/2023 11:46 AM CONCRETING SUPERVISOR [facility] ENTRIL LABORATORY Comment: Interpreted at [facility] Laboratory - [address] [place] [address] Automated Review Successful 03/20/2023 11:46 AM CONCRETING SUPERVISOR [facility] ENTRIL LABORATORY Comment:Specimen processed s uccessfully by automated gardening instructor device, PivotPrep Imaging System, [employer] Note The pap test is a screening technique, not a diagnostic procedure. It is used primarily to screen for squamous cancers and precursor lesions. Published studies have shown that it is subject to both false negative and false positive results. The pap test should not be used as the sole means to diagnose or exclude pre-malignant and malignant lesions. 03/20/2023 11:46 AM [facility] Other (Cervical) 03/12/2023 9:20 AM CONCRETING SUPERVISOR 03/13/2023 12:29 PM CONCRETING SUPERVISOR Isa Orellana PA-C PATHOLOGY/CYTOLOG[facility] [address] [place] [address], from Last 3 Months or Most Recently Relevant to Health Maintenance Care Teams Telegrapher Agent Relationship Specialty Start Date End Date Leobardo Villalpando MD PCP - General Family Practice 06/16/11
--- OUTSIDE RECORDS SUMMARY | 2023-12-22 08:20 | XMS_ITS | Encounter Summary ---
Author Organization [place] Address [facility] [place] [address] Care Team Providers Care Corporate Events Director Name Role Phone [facility]- Primary Care Provider Reason for Visit * Reason Onset Date Comments MH/CD Inpatient 08/02/2018 Encounter Details Date Type Department Care Team ([facility] Contact Info) Description 08/02/2018 Telephone [facility] Behavioral Health Intake [address] [place] [phone] Generic, Behavioral Intake, MH/CD Inpatient Social History [...] reports she started seeing a psychiatrist in [facility] has an appointment scheduled with a therapist but hasn't seen one yet. No reported medical concerns or cd issues. Sterile Proc Tech reports pt is able to ambulate independently. A: vol R: 4a / Sheyla Root Accepted by Dr. Mejia documented in this encounter Plan of Treatment Not on file documented as of this encounter Visit Diagnoses Not on filedocumented in this encounter Care Teams Corporate Events Director Relationship Specialty Start Date End Date [facility]- [address] [place] [address] PCP - General 08/02/18 documented as of this encounter
--- NOTE | 2023-12-22 10:05 | W.ANESCHARGE ---
Anesthesia Charges Start Date/Time Anesthesia Start Date: 12/22/23 Anesthesia Start Time: 09:34 Stop Date/Time Anesthesia Stop Date: 12/22/23 Anesthesia Stop Time: 10:01
--- NOTE | 2023-12-22 10:42 | W.ANESCHARGE ---
Anesthesia Charges Start Date/Time Anesthesia Start Date: 12/22/23 Anesthesia Start Time: 09:34 Stop Date/Time Anesthesia Stop Date: 12/22/23 Anesthesia Stop Time: 10:01
== END 2023-12-22 08:19 | disposition home or self-care (01) ==
LOC: OP CLINIC 08:18
PROVIDERS: PCP Physician Assistant Medical; Visit Provider Surgery
DX: K21.9 Gastro-esophageal reflux disease without esophagitis (principal); R19.8 Other specified symptoms and signs involving the digestive system and abdomen
CPT/HCPCS: 00731; 43239; 88305; J2405; J2704; J3490

== ENCOUNTER 2024-07-27 08:32 | Outpatient (CLI) | payer BC, SELFPAY | END 2024-07-27 08:33 | disposition home or self-care (01) | LOC: NFLDREF 17:15 | PROVIDERS: PCP Physician Assistant Medical; Referring Provider Physician Assistant Medical; Visit Provider Physician Assistant Medical | DX: N92.6 Irregular menstruation, unspecified (principal); K90.0 Celiac disease; F31.9 Bipolar disorder, unspecified; R76.8 Other specified abnormal immunological findings in serum; F41.9 Anxiety disorder, unspecified; Z30.9 Encounter for contraceptive management, unspecified; Z13.1 Encounter for screening for diabetes mellitus; Z13.6 Encounter for screening for cardiovascular disorders | CPT/HCPCS: 80053; 80061; 82306; 82607; 82728 ==

== ENCOUNTER 2024-11-24 09:36 | Outpatient (CLI) | payer BC, SELFPAY ==
--- NOTE | 2024-11-24 09:30 | CRLHL7_ITS ---
For Patients: As a result of the Century Cures Act, medical imaging exams and procedure reports are released immediately into your electronic medical record. You may view this report before your referring provider. If you have questions, please contact your health care provider. DXA BONE MINERAL DENSITY STUDY Reason for exam: Celiac disease. Current height (in): 65. Weight (lb): 150. Menopause age: Ethnicity: White. 1. Have you had a previous hip or vertebral fracture? No. 2. Have you had any fractures during your adult life which did not result from significant trauma (e.g., auto accident)? No. 3. Did either of your parents have a hip fracture? No. 4. Do you smoke? Yes. 5. Have you ever taken Glucocorticoids? No. 6. Do you have rheumatoid arthritis? No. 7. Do you have secondary osteoporosis? No. 8. Do you drink 3 or more alcoholic drinks per day? No. 9. Are you being treated for osteoporosis? No. 10. Have you ever taken any of the following medications: Actonel, Evista, Fosamax, Miacalcin, Reclast, Boniva, Forteo, HRT (i.e. estrogen/hormone therapy), Protelos, Prolia, Vitamin D, Calcium, other ??? please specify. ANSWER: Yes, Vitamin D. 11. Do you have any of the following medical conditions: Anorexia or bulimia, asthma or emphysema, end stage renal disease, hyperparathyroidism, any seizure disorders, cancer, inflammatory bowel diseases, hysterectomy, other ??? please specify. ANSWER: No. 12. What was your maximum height (inches)? 65. 13. Do you perform weight bearing exercise regularly? No. 14. Do you regularly consume dairy products? Yes. 15. Do you drink caffeinated beverages? Yes. 16. At what age did your period start? 13. 17. Are you premenopausal? No. 18. How many full term pregnancies have you had? 0. 19. Have you ever missed your period for more than 6 months in a row (not including or menopause)? No. TECHNIQUE: Bone mineral density study was performed using the [employer]. FINDINGS: The results of the study expressed as bone mineral density (BMD) are as follows: Lumbar spine L1 to L4: BMD: 0.836 g/cm2. Z-score: -1.5. Neck Left: BMD: 0.767 g/cm2. Z-score: -0.7. Right: BMD: 0.803 g/cm2. Z-score: -0.4. Total Left: BMD: 0.862 g/cm2. Z-score: -0.6. Right: BMD: 0.865 g/cm2. Z-score: -0.6. Normal findings with no increased fracture risk identified. The Z-score is within the expected range for age (Z-score above -2.0). (The World Health Organization [WHO] criteria do not apply to this patient). This patient does not fit the criteria to use the database of postmenopausal women. That database is useful for perimenopausal and postmenopausal women, and men 50 years old and older. Therefore, the T-scores are not useful to evaluate this patient and only the Z-scores are used. *Comparison exams done prior to 10/2019 were performed on different unit, [place]. FRAX 10-year Fracture Risk Major Osteoporotic Fracture: <0.1 percent Hip Fracture: <0.1 percent Reported Risk Factors: [place] () Neck BMD=0.767, BMI=24.9 Heaven Johnson M.D. Diagnostic Radiologist [email or web address] CLIFF/raz SP/Dictated by: Heaven Johnson MD @ 11/28/2024 7:12:00 AM (Electronically Signed)
== END 2024-11-24 09:37 | disposition home or self-care (01) ==
PROVIDERS: PCP Physician Assistant Medical; Visit Provider Internal Medicine
DX: K90.0 Celiac disease (principal)
CPT/HCPCS: 77080

== ENCOUNTER 2025-01-26 09:22 | Outpatient (CLI) | payer BC, SELFPAY ==
[2025-01-26 09:42] LABS: Ur HCG Qualitative* Negative (Negative)
--- NOTE | 2025-01-26 10:47 | P.ANES_ITS ---
Anesthesia Charges Start Date/Time Anesthesia Start Date: 01/26/25 Anesthesia Start Time: 10:31 Stop Date/Time Anesthesia Stop Date: 01/26/25 Anesthesia Stop Time: 10:45 Coding CPT Codes CPT Codes: ANES UPR GI NDSC PX NOS - 61656 ([id number]) P2 - PATIENT W/MILD SYST DISEASE, QK - NEEDLE BAR MOLDER 2-4 CNCRNT ANES PROC, QX - BAG LINER SVC W/ MD MED DIRECTION
--- NOTE | 2025-01-26 10:47 | W.ANESCHARGE ---
Anesthesia Charges Start Date/Time Anesthesia Start Date: 01/26/25 Anesthesia Start Time: 10:31 Stop Date/Time Anesthesia Stop Date: 01/26/25 Anesthesia Stop Time: 10:45 Coding CPT Codes CPT Codes: ANES UPR GI NDSC PX NOS - 97295 ([id number]) P2 - PATIENT W/MILD SYST DISEASE, QK - TEACHER SELECTION SPECIALIST 2-4 CNCRNT ANES PROC, QX - MECHANICAL SERVICE REPRESENTATIVE SVC W/ MD MED DIRECTION
--- NOTE | 2025-01-26 10:55 | P.ANES_ITS ---
Anesthesia Charges Start Date/Time Anesthesia Start Date: 01/26/25 Anesthesia Start Time: 10:31 Stop Date/Time Anesthesia Stop Date: 01/26/25 Anesthesia Stop Time: 10:45 Coding CPT Codes CPT Codes: ANES UPR GI NDSC PX NOS - 81645 ([id number]) P2 - PATIENT W/MILD SYST DISEASE, QK - FORM COVERER 2-4 CNCRNT ANES PROC, QX - INFORMATION RESOURCES DIRECTOR SVC W/ MD MED DIRECTION
--- NOTE | 2025-01-26 10:55 | W.ANESCHARGE ---
Anesthesia Charges Start Date/Time Anesthesia Start Date: 01/26/25 Anesthesia Start Time: 10:31 Stop Date/Time Anesthesia Stop Date: 01/26/25 Anesthesia Stop Time: 10:45 Coding CPT Codes CPT Codes: ANES UPR GI NDSC PX NOS - 03596 ([id number]) P2 - PATIENT W/MILD SYST DISEASE, QK - HORSE RIDER 2-4 CNCRNT ANES PROC, QX - WAREHOUSE HAND SVC W/ MD MED DIRECTION
== END 2025-01-26 09:23 | disposition home or self-care (01) ==
LOC: OP CLINIC 09:22
PROVIDERS: PCP Physician Assistant Medical; Visit Provider Surgery
DX: K90.0 Celiac disease (principal)
CPT/HCPCS: 00731; 43239; 81025; 84702; 88305; J2405; J2704; J3490